=== PATIENT | female | born 1950 | race African-American/Black ===

== ENCOUNTER → 2020-02-18 09:28 | Outpatient (CLI) | payer MEDICARE, SELFPAY ==
[2020-02-18 08:45] VITALS: BMI 31.9
[2020-02-18 12:30] LABS: Absolute Neutrophil Count 1.8 X10^3/uL (2.0-7.7); Basophil# 0.03 X10^3/uL; Basophil% 0.7 % (0-1); Eosinophil# 0.14 X10^3/uL; Hematocrit 40.9 % (37-47); Hemoglobin 12.4 g/dL (12.0-15.0); Lymphocyte % 47.8 % (19-41); Mean Corp Hgb Conc 30.3 g/dL (32-36); Mean Corpuscular Hgb 29.4 pg (27.0-32.0); Mean Corpuscular Volume 96.9 fL (81-99); Mean Platelet Vol. 9.2 fl (6.2-12.0); Monocyte# 0.41 X10^3/uL; Monocyte% 8.9 % (0-10); NRBC Flagged by Analyzer 0 % (0-5); Neutrophil # 1.81 X10^3/uL (2.7-7.7); Neutrophil % 39.4 % (47-70); Platelet Count 273 K/mm3 (150-450); RBC Distribution Width SD 49.8 fl (35.1-43.9); Red Blood Count 4.22 M/mm3 (4.2-5.4); White Blood Count 4.6 K/mm3 (4.4-11.0)
[2020-02-18 13:27] LABS: AST(SGOT) 14 U/L (15-37); Alanine Aminotransfer ALT/SGPT 22 U/L (13-56); Albumin, Serum 3.6 g/dL (3.2-5.0); Alkaline Phosphatase 49 U/L (45-117); Anion Gap 6 (5-15); BUN 18 mg/dL (7-18); BUN/Creat Ratio 21.5 RATIO (10-20); Chloride 107 mmol/L (98-107); Cholesterol 190 mg/dL (200); Creatinine, Serum 0.84 mg/dL (0.55-1.02); EST Glomerular Filtration Rate 72 mL/min (>60); Est Glom Filt Rate - Afr Amer 87 mL/min (>60); Globulin 3.5 g/dL (2.2-4.2); Glucose 147 mg/dL (74-106); High Density Lipoprotein 68 mg/dL; Potassium 4.1 mmol/L (3.5-5.1); Protein, Total 7.1 g/dL (6.4-8.2); Sodium Level 141 mmol/L (136-145); Triglycerides 77 mg/dL; Very Low Density Lipoprotein 15 mg/dL (5-40)
[2020-02-18 15:47] LABS: Hemoglobin A1c 6.1 % (3.8-5.6)
== END ==
PROVIDERS: PCP Internal Medicine; Referring Provider Internal Medicine; Visit Provider Internal Medicine
DX: I10 Essential (primary) hypertension (principal); J98.4 Other disorders of lung; E78.1 Pure hyperglyceridemia; R73.9 Hyperglycemia, unspecified
CPT/HCPCS: 36415; 80053; 80061; 83036; 85025

== ENCOUNTER 2020-04-14 18:39 | Emergency (ER) | payer MEDICARE, SELFPAY ==
[2020-03-29 14:16] VITALS: BMI 33.8
[2020-04-14 18:40] VITALS: BP 172/102; PULSE 82; RESP 24; TEMP 36.4; O2SAT 95; BMI 33.0
--- NOTE | 2020-04-14 19:17 | EKG12_ITS ---
Test Reason : DYSRHYTHMIA Blood Pressure : / mmHG Vent. Rate : 074 BPM Atrial Rate : 074 BPM P-R Int : 210 ms QRS Dur : 086 ms QT Int : 414 ms P-R-T Axes : 066 037 066 degrees QTc Int : 459 ms Sinus rhythm with 1st degree A-V block T wave abnormality, consider anterolateral ischemia Abnormal ECG Confirmed by KALLIE BURGESS MD ([id number]), scientific editor FELISHA RUDOLPH ([id number]) on 04/18/2020 9:29:23 AM Referred By: Confirmed By:KALLIE BURGESS MD
--- NOTE | 2020-04-14 19:30 | ED.VIS.GEN ---
History of Present Illness Chief Complaint: General Illness Informant: Patient Onset: Yesterday Context: Sudden Onset Timing: Continuous Quality: Respiratory symptoms, chest discomfort, shortness of breath, diarrhea Location: Respiratory and GI Current Severity: Mild Maximum Severity: Moderate Worsened by: Dyspnea with exertion and nothing regarding diarrhea Relieved by: Nothing Associated Symptoms: Chronic loss of taste and smell Narrative: Patient is 69-year-old woman who has history of hematologic problem that causes her to have lung problems. She does have history of COPD . She presents with diarrhea, shortness of breath, productive cough and wheezing that started over the past 24 hours. She states she has not had sense of taste or smell for a long time. She denies fever or chills. She denies exposure to anyone with COVID to her knowledge. She does have history of thrombus in the past. She denies ocular, visual or auditory symptoms. She denies change in voice or difficulty swallowing. She denies leg pain, swelling discoloration. She denies vomiting. She denies dysuria, frequency, urgency or hematuria. 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 Denies: Chills, Fever, Subjective, Sweats, Weight loss Eyes: Denies: Visual changes - bilaterally, Blurred Vision - bilaterally ENT: Denies: Rhinorrhea, Sore throat Cardiovascular: Denies: Chest pain, Palpitations Respiratory: Reports: Dyspnea, Cough, Sputum, Dyspnea on exertion. Denies: Orthopnea, Paroxysmal nocturnal dyspnea Gastrointestinal: Reports: Nausea, Diarrhea. Denies: Abdominal pain, Vomiting, Constipation, Melena, Hematochezia, -, - Genitourinary: Denies: Dysuria, Hematuria, Frequency Musculoskeletal: Denies: Myalgias, Arthralgias, Neck pain, Back pain, Swelling, Extremity Pain, -, - Skin: Denies: Rash, Wounds Neurological: Reports: Headache. Denies: Weakness, Parasthesia, Numbness, -, - Endocrine: Denies: Polyuria, Polydipsia Hematologic: Denies: Easy bruising, Easy bleeding Physical Exam Vital Signs/Narrative: Vital Signs Temp Pulse Resp BP Pulse Ox 04/14/20 18:40 97.6 F L 82 24 H 172/102 H 95 Inital Vital Signs reviewed: Yes General: Well nourished, Well developed, Acute Distress Head: Normocephalic, Atraumatic Eyes: Perrl, EOMI. Negative for: Pale conjunctiva, Scleral icterus ENT: Moist mucous membranes, TM's clear, Nasal congestion Cardiovascular: Regular rate, Regular rhythm, No murmurs, Normal S1, Normal S2 Respiratory: Chest nontender, Wheezing, Diminished, Decreased Air Movement. Negative for: No distress, CTA bilaterally Abdomen: Soft, Nontender, Nondistended, Normal bowel sounds Rectal: Deferred Back: Nontender, Normal Inspection Extremities: Nontender, No edema, - - There is no asymmetry, swelling, discoloration, leg vein distention, palpable cords or tenderness along the distribution of the deep venous system. Skin: Normal color, No rash Neurological: Alert, Oriented x3, Cranial nerves II-XII grossly intact, Normal Strength, Normal Sensation Psychological: Normal affect, Normal Mood Diagnostic/Tx/Re-eval Impressions Chest X-Ray 04/14/20 19:57 IMPRESSION: 1. Possible acute viral pneumonia. Electronically Signed: Ming Nielsen, at 20:14 EDT Tel , Service support , 04/14/20 19:57 Chest 1 View (Portable) [RAD] Stat Laboratory Results 04/14/20 04/14/20 04/14/20 19:35 19:35 19:35 WBC 4.6 RBC 4.35 Hgb 12.6 Hct 41.1 MCV 94.5 MCH 29.0 MCHC 30.7 L RDW Std Deviation 48.7 H RDW Coeff of Doe 14.1 Plt Count 281 MPV 9.0 Immature Gran % (Auto) 0.200 Neut % (Auto) 33.5 L Lymph % (Auto) 52.1 H Dorado % (Auto) 9.4 Eos % (Auto) 4.1 Baso % (Auto) 0.7 Absolute Neuts (auto) 1.5 L Absolute Lymphs (auto) 2.39 Nucleated RBC % 0 D-Dimer Quant (PE/DVT) Sodium 141 Potassium 4.2 Chloride 109 H Carbon Dioxide 29.0 Anion Gap 3 L BUN 16 Creatinine 0.86 Estim Creat Clear Calc 57.80 Est GFR (MDRD) Af Amer 84 Est GFR (MDRD) Non-Af 69 BUN/Creatinine Ratio 18.6 Glucose 127 H Lactic Acid 1.6 Calcium 8.9 Total Bilirubin 0.50 AST 16 ALT 22 Alkaline Phosphatase 53 Troponin I < 0.015 Total Protein 7.2 Albumin 3.7 Globulin 3.5 Albumin/Globulin Ratio 1.1 04/14/20 19:35 WBC RBC Hgb Hct MCV MCH MCHC RDW Std Deviation RDW Coeff of Doe Plt Count MPV Immature Gran % (Auto) Neut % (Auto) Lymph % (Auto) Dorado % (Auto) Eos % (Auto) Baso % (Auto) Absolute Neuts (auto) Absolute Lymphs (auto) Nucleated RBC % D-Dimer Quant (PE/DVT) < 0.27 L Sodium Potassium Chloride Carbon Dioxide Anion Gap BUN Creatinine Estim Creat Clear Calc Est GFR (MDRD) Af Amer Est GFR (MDRD) Non-Af BUN/Creatinine Ratio Glucose Lactic Acid Calcium Total Bilirubin AST ALT Alkaline Phosphatase Troponin I Total Protein Albumin Globulin Albumin/Globulin Ratio X-ray was reviewed by me and agree there is bilateral interstitial changes. Presumption patient has COVID. Even if her cover test returns normal suspect that she has COVID. Patient was informed the test does have a 20 to 30% false negativity rate. She understood what that meant. She was discharged with prescription for prednisone. She states she has multiple inhalers at home. She also was placed on doxycycline in the event that this is an atypical pneumonia. Patient's pulse ox is 97% on room air. She is not tachycardic. - Medical Decision Making History of neoplastic disease, prior DVT patient is not PERC negative and will obtain d-dimer. Because she describes the chest discomfort as pressure troponin was obtained as well as EKG. Since she is wheezing will treat with DuoNeb and albuterol. Chest x-ray was obtained to assess for pneumonia. ED Disposition - Plan for ED Patient: Disposition: Home or Assisted Living Diagnosis: Pneumonia due to COVID-19 virus, Acute bronchospasm due to viral infection Instructions: ED Viral Syndrome Prescriptions: Prednisone [Deltasone] 40 mg PO DAILY #10 tab Transmission Status: Pending to [id number] Doxycycline 100 mg PO BID #14 cap Transmission Status: Pending to [id number] Referrals: Fco Bell MD [Primary Care Provider] - 1 Week if not improving
[2020-04-14 19:38] VITALS: BP 169/93; PULSE 74; RESP 20; TEMP 36.4; O2SAT 97
[2020-04-14 19:45] VITALS: PULSE 75; RESP 18; RESP 24; O2SAT 95
[2020-04-14] MEDS: Albuterol 2.5 MG/3 ML VIAL.NEB. INHALATION ×3 (19:45)
[2020-04-14] MEDS: Ipratropium/Albuterol Sulfate 3 ML AMPUL.NEB INHALATION (19:45)
[2020-04-14 19:53] LABS: Absolute Lymphocyte Count 2.39 X10^3/uL (0.83-4.51); Absolute Neutrophil Count 1.5 X10^3/uL (2.0-7.7); Basophil# 0.03 X10^3/uL; Basophil% 0.7 % (0-1); Eosinophil# 0.19 X10^3/uL; Eosinophils% 4.1 % (0-5); Hematocrit 41.1 % (37-47); Hemoglobin 12.6 g/dL (12.0-15.0); Lymphocyte # 2.39 X10^3/ul (4.0); Lymphocyte % 52.1 % (19-41); Mean Corp Hgb Conc 30.7 g/dL (32-36); Mean Corpuscular Volume 94.5 fL (81-99); Monocyte# 0.43 X10^3/uL; Monocyte% 9.4 % (0-10); NRBC Flagged by Analyzer 0 % (0-5); Neutrophil # 1.54 X10^3/uL (2.7-7.7); Neutrophil % 33.5 % (47-70); Platelet Count 281 K/mm3 (150-450); RBC Distribution Width CV 14.1 % (11.6-14.6); RBC Distribution Width SD 48.7 fl (35.1-43.9); Red Blood Count 4.35 M/mm3 (4.2-5.4); White Blood Count 4.6 K/mm3 (4.4-11.0)
--- NOTE | 2020-04-14 19:57 | RAD_ITS ---
STUDY: X-RAY CHEST REASON FOR EXAM: Female, 69 years old. COUGH, HEADACHE, AND DIARRHEA TECHNIQUE: Frontal view of the chest COMPARISON: None. FINDINGS: Interstitial markings are mildly irregular and increased in visibility bilaterally in the mid to lower lung zones. There is no pneumothorax, pleural effusions, pulmonary edema or cardiomegaly. There is no gas under the diaphragms and osseous structures are intact. RAD/Chest 1 View (Portable) IMPRESSION: 1. Possible acute viral pneumonia. Electronically Signed: Ming Nielsen, at 20:14 EDT Tel , Service support ,
[2020-04-14 20:09] LABS: ALB/GLOB Ratio 1.1 RATIO (0.9-2.4); AST(SGOT) 16 U/L (15-37); Alanine Aminotransfer ALT/SGPT 22 U/L (13-56); Albumin, Serum 3.7 g/dL (3.2-5.0); Alkaline Phosphatase 53 U/L (45-117); Anion Gap 3 (5-15); BUN 16 mg/dL (7-18); BUN/Creat Ratio 18.6 RATIO (10-20); Calcium,Total 8.9 mg/dL (8.5-10.1); Chloride 109 mmol/L (98-107); Creatinine, Serum 0.86 mg/dL (0.55-1.02); EST Glomerular Filtration Rate 69 mL/min (>60); Est Glom Filt Rate - Afr Amer 84 mL/min (>60); Globulin 3.5 g/dL (2.2-4.2); Glucose 127 mg/dL (74-106); Potassium 4.2 mmol/L (3.5-5.1); Protein, Total 7.2 g/dL (6.4-8.2); Sodium Level 141 mmol/L (136-145)
[2020-04-14 20:15] LABS: D-Dimer Quantitative (DVT/PE) < 0.27 FEU/ug/m (0.27-0.49)
[2020-04-14 20:30] LABS: Lactic Acid 1.6 mmol/L (0.4-1.9)
--- NOTE | 2020-04-14 20:43 | CPS ---
x3 Albuterol given to pt. in ED as well
[2020-04-14 20:48] VITALS: O2SAT 97
[2020-04-14 21:17] VITALS: BP 150/73; PULSE 71; RESP 15; O2SAT 96
== END 2020-04-14 21:19 | disposition home or self-care (01) ==
PROVIDERS: Emergency Provider Emergency Medicine; PCP Internal Medicine
DX: U07.1 COVID-19 (principal); J12.89 Other viral pneumonia; J44.0 Chronic obstructive pulmonary disease with (acute) lower respiratory infection; D3A.090 Benign carcinoid tumor of the bronchus and lung; I10 Essential (primary) hypertension; E78.1 Pure hyperglyceridemia; Z79.899 Other long term (current) drug therapy
CPT/HCPCS: 71045; 80053; 83605; 84484; 85025; 85379; 87635; 93005; 94640; 94799; 99251; 99284; A4216; G0463; U0003

== ENCOUNTER → 2020-05-29 15:46 | Outpatient (CLI) | payer MEDICARE, SELFPAY ==
--- NOTE | 2020-05-29 15:46 | CT_ITS ---
STUDY: CT CHEST WITH CONTRAST REASON FOR EXAM: Female, 69 years old. Right upper lobe wedge resection for follow-up. RADIATION DOSAGE (If Supplied By Facility): CTDIvol = ( 12.73 ) mGy, DLP = ( 597.22 ) mGycm TECHNIQUE: Transaxial imaging was performed following intravenous administration of . Individualized dose optimization techniques were used for this CT. COMPARISON: Chest x-ray April 14, 2020. FINDINGS: Scattered noncalcified nodules bilaterally largest in the right lung measuring 4-5 mm. 0.7 x 0.6 cm noncalcified nodule medial aspect of the right lower lobe axial image 99 series 2. Noncalcified nodule measuring 0.8 to 0.6 cm medial aspect of the lingular segment axial image 53 series 2. 0.9 x 0.9 cm noncalcified nodule medial aspect left lower lobe axial image 82 series 2.Lobulated nodule left lower lobe axial image 69 series 2 measuring 1.2 x 0.5 cm. Scattered small pulmonary cysts left lung. No pleural effusions. No focal areas of consolidation. No pneumothorax. Normal heart and pericardium. Normal mediastinum. Normal hilar regions. Normal enhanced pulmonary arteries. Normal aorta arch and descending thoracic aorta. Normal osseous structures. There is no demonstrated abnormality of the visualized upper abdomen. CT/Chest WITH Contrast IMPRESSION: Multiple noncalcified nodules bilaterally. Recommend comparison to prior studies if available to assess stability. Otherwise recommend follow-up CT in 3-6 months with consideration for PET/CT scan . Electronically Signed: Phu Roman MD at 7:17 EDT , Service support ,
== END ==
LOC: CT 15:46
PROVIDERS: PCP Internal Medicine; Referring Provider Internal Medicine Hematology & Oncology; Visit Provider Internal Medicine Hematology & Oncology
DX: D3A.090 Benign carcinoid tumor of the bronchus and lung (principal); J98.4 Other disorders of lung; J45.909 Unspecified asthma, uncomplicated
CPT/HCPCS: 71260; Q9967

== ENCOUNTER → 2020-06-21 11:54 | Outpatient (CLI) | payer MEDICARE, SELFPAY ==
[2020-06-21 15:44] LABS: T4 Free Direct 0.94 ng/dL (0.76-1.46); Thyroid Stim Hormone (TSH) 1.77 uIU/mL (0.358-3.74)
== END ==
PROVIDERS: PCP Internal Medicine; Referring Provider Internal Medicine; Visit Provider Internal Medicine
DX: F32.9 Major depressive disorder, single episode, unspecified (principal); F41.9 Anxiety disorder, unspecified
CPT/HCPCS: 36415; 84439; 84443

== ENCOUNTER → 2020-07-20 09:54 | Outpatient (CLI) | payer MEDICARE, SELFPAY ==
[2020-06-30 15:10] VITALS: BMI 33.7
[2020-07-19 15:25] VITALS: BMI 33.7
--- NOTE | 2020-07-21 11:28 | PFT ---
INTRODUCTION: The patient is a 69-year-old -[place] female that presents for pulmonary function studies secondary to a diagnosis of other disorder of lung. Respiratory therapy reports good patient effort. Bronchodilators were used during testing. INTERPRETATION: Forced expiration spirometry demonstrates the presence of a severe large airways obstructive ventilatory defect. There was no significant response to aerosolized bronchodilators. Spirograms are of fair quality and do not plateau indicating slow emptying of the lungs. Body plethysmography was performed and reveals a decreased TLC to 3.74 L, 74% of predicted, indicative of a mild restrictive ventilatory impairment. Diffusing capacity by single breath CO is severely reduced at 31% of predicted. IMPRESSION: Irreversible severe mixed ventilatory defect with symmetric reduction in diffusing capacity.
== END ==
PROVIDERS: PCP Internal Medicine; Referring Provider Internal Medicine Critical Care Medicine; Visit Provider Internal Medicine Critical Care Medicine
DX: J98.4 Other disorders of lung (principal)
CPT/HCPCS: 94060; 94726; 94729

== ENCOUNTER → 2020-07-25 11:18 | Outpatient (CLI) | payer MEDICARE, SELFPAY ==
[2020-06-30 15:10] VITALS: BMI 33.7
[2020-07-19 15:25] VITALS: BMI 33.7
[2020-07-25 11:15] VITALS: PULSE 80; PULSE 82; PULSE 89; PULSE 94; PULSE 95; PULSE 96; PULSE 99; O2SAT 89; O2SAT 90; O2SAT 91; O2SAT 94; O2SAT 95
--- NOTE | 2020-07-25 16:15 | PCM.PSN.6M ---
PSN 6 Minute Walk Test - 6 Minute Walk Test 6 Minute Walk Test: 6 Minute Walk Test PSN:6-Minute Walk Test Start: 07/25/20 11:35 Freq: Status: Active Protocol: [id number].6MINW Document 07/25/20 11:15 (Rec: 07/25/20 11:37 [id number]) 6 Minute Walk Test Date Performed 07/25/20 Time Performed 11:15 Height 5 ft 6 in Weight: 94.347 kg Weight in Pounds 208.[address]: Leif Foster FIO2 (% Oxygen) 21 Assistive device used: None Pre-test Oxygen Delivery Method Room Air Pulse Ox (%) 94 Pulse Rate (60-100 beats/min) 80 Dyspnea Shante Scale (0-10) 0 Exertion Shante Scale (6-20) 6 1st minute Oxygen Delivery Method Room Air Pulse Ox (%) 91 Pulse Rate (60-100 beats/min) 94 2nd minute Oxygen Delivery Method Room Air Pulse Ox (%) 90 Pulse Rate (60-100 beats/min) 95 3rd minute Oxygen Delivery Method Room Air Pulse Ox (%) 90 Pulse Rate (60-100 beats/min) 95 4th minute Oxygen Delivery Method Room Air Pulse Ox (%) 90 Pulse Rate (60-100 beats/min) 89 5th minute Oxygen Delivery Method Room Air Pulse Ox (%) 89 Pulse Rate (60-100 beats/min) 96 6th minute Oxygen Delivery Method Room Air Pulse Ox (%) 90 Pulse Rate (60-100 beats/min) 99 Post-test Oxygen Delivery Method Room Air Pulse Ox (%) 95 Pulse Rate (60-100 beats/min) 82 Dyspnea Shante Scale (0-10) 3 Exertion Shante Scale (6-20) 12 Full Laps Walked 15 Partial Lap, Number of Tiles Walked 0 Total Distance Walked (ft) 885 - Interpretation Interpretation: The patient was able to ambulate 885 feet over the course of 6 minutes on room air with no assistive devices or breaks. The patient did desaturate as low as 89% and did not have any significant tachycardia. Patient's peak heart rate was 99 bpm. These findings are consistent with a respiratory limitation to exercise tolerance. - Recommendations Recommendations: The patient requires no supplemental oxygen at this time. However, patient will need to be followed closely given the level of desaturation
== END ==
PROVIDERS: PCP Internal Medicine; Referring Provider Internal Medicine Critical Care Medicine; Visit Provider Internal Medicine Critical Care Medicine
DX: J98.4 Other disorders of lung (principal)
CPT/HCPCS: 94618

== ENCOUNTER → 2020-08-01 | Outpatient (CLI) | payer MEDICARE, SELFPAY ==
[2020-07-19 15:25] VITALS: BMI 33.7
== END | disposition home or self-care (01) ==
LOC: LABSPEC 17:30
PROVIDERS: PCP Internal Medicine; Referring Provider Internal Medicine; Visit Provider Internal Medicine
DX: Z20.828 Contact with and (suspected) exposure to other viral communicable diseases (principal)
CPT/HCPCS: 87635; C9803; U0003

== ENCOUNTER → 2020-08-30 10:04 | Outpatient (CLI) | payer MEDICARE, SELFPAY ==
[2020-08-29 08:04] VITALS: BMI 32.9
--- NOTE | 2020-08-30 10:07 | RAD_ITS ---
STUDY: X-RAY - LEFT KNEE REASON FOR EXAM: Female, 69 years old. PAIN, CRACK WHILE WALKING X A FEW MONTHS TECHNIQUE: 4 view(s) of the knee. COMPARISON: None. FINDINGS: Normal visualized distal femur. Normal visualized proximal tibia and fibula. Normal proximal tibiofibular articulation. Mild degenerative squaring of the medial compartment. Normal lateral femorotibial compartment. Normal patellofemoral articulation. There is no demonstrated joint effusion. Anterior venous phlebolith. RAD/Knee 4 or More Views IMPRESSION: No acute findings. Negative for fracture, dislocation or joint effusion. Mild degenerative squaring of the medial compartment without other arthritic or degenerative changes. Electronically Signed: Marisa Swanson MD at 17:05 EST , Service support ,
--- NOTE | 2020-08-30 10:07 | RAD_ITS ---
STUDY: X-RAY CHEST REASON FOR EXAM: Female, 69 years old. COUGH AND CHEST PAIN WITH MOVEMENT X 2 MONTHS TECHNIQUE: 2 views COMPARISON: Prior portable chest of 04/14/[address] exam of 05/29/2020 FINDINGS: Subtle nodular densities remain present bilaterally which do not appear to be substantially changed in distribution or size from prior exam. She appears to be status post a prior resection of a portion of the right upper lobe. Negative for a new major areas of consolidation or focal atelectasis. Normal size heart. Normal mediastinum and candace. Normal visualized pulmonary arteries. Mild elongation of the thoracic aorta. Normal visualized thoracic spine. Normal visualized ribs, clavicles, and shoulders. Status post cholecystectomy. RAD/Chest PA and Lateral IMPRESSION: Stable appearance of the chest with small diffuse nodular opacities. Negative for new consolidation, focal atelectasis, other infiltrates or pleural effusion. Electronically Signed: Marisa Swanson MD at 17:10 EST , Service support ,
== END ==
LOC: RAD 10:06
PROVIDERS: PCP Internal Medicine; Referring Provider Internal Medicine; Visit Provider Internal Medicine
DX: M25.562 Pain in left knee (principal); J42 Unspecified chronic bronchitis; J98.4 Other disorders of lung
CPT/HCPCS: 71046; 73564

== ENCOUNTER → 2020-11-17 12:59 | Outpatient (CLI) | payer MEDICARE, MEDICAID, SELFPAY ==
[2020-11-09 13:43] VITALS: BMI 33.1
--- NOTE | 2020-11-17 13:03 | CT_ITS ---
STUDY: CT CHEST WITHOUT CONTRAST REASON FOR EXAM: Female, 70 years old. Follow up nodules. RADIATION DOSAGE (If Supplied By Facility): CTDIvol = ( 12.97 ) mGy, DLP = ( 422.38 ) mGycm TECHNIQUE: Transaxial imaging was performed without the administration of intravenous contrast material. Multiplanar coronal and sagittal images were reformatted. Individualized dose optimization techniques were used for this CT. COMPARISON: Comparison is made with prior study dated 05/29/2020. FINDINGS: Stable small benign appearing bilateral axillary lymph nodes. Stable bilateral multiple noncalcified nodules. Correlation with a PET scan is recommended. There is no demonstrated pleural abnormality. Normal heart and pericardium. There are multiple small lymph nodes within the mediastinum, which are normal in size and morphology most compatible with reactive lymph hyperplasia. Normal hilar regions. Normal unenhanced pulmonary arteries. Normal aorta arch and descending thoracic aorta. There are degenerative changes of the thoracic spine. There is no demonstrated abnormality of the visualized upper abdomen. CT/Chest without Contrast IMPRESSION: Stable appearance of the multiple bilateral noncalcified pulmonary nodules. Correlation with a PET scan is recommended. Electronically Signed: Michael Fleming MD at 13:41 EST , Service support ,
== END ==
PROVIDERS: PCP Internal Medicine; Referring Provider Internal Medicine Critical Care Medicine; Visit Provider Internal Medicine Critical Care Medicine
DX: D3A.090 Benign carcinoid tumor of the bronchus and lung (principal)
CPT/HCPCS: 71250

== ENCOUNTER 2020-11-24 10:03 | Outpatient (RCR) | payer MEDICARE, MEDICAID, SELFPAY ==
[2020-11-09 13:43] VITALS: BMI 33.1
[2020-11-24] MEDS: COVID-19 VACC, MRNA(PFIZER)/PF 30 MCG/0.3 ML SYRINGE IM (14:01)
[2020-12-15] MEDS: COVID-19 VACC, MRNA(PFIZER)/PF 30 MCG/0.3 ML SYRINGE IM (13:33)
== END 2021-02-20 23:59 ==
LOC: IMMUN 10:03
PROVIDERS: PCP Internal Medicine; Visit Provider Family Medicine
DX: Z23 Encounter for immunization (principal)
CPT/HCPCS: 0001A; 0002A; 91300

== ENCOUNTER → 2020-11-24 20:26 | Outpatient (CLI) | payer MEDICARE, MEDICAID, SELFPAY ==
[2020-11-09 13:43] VITALS: BMI 33.1
== END ==
PROVIDERS: PCP Internal Medicine; Visit Provider Internal Medicine Critical Care Medicine
DX: G47.33 Obstructive sleep apnea (adult) (pediatric) (principal)
CPT/HCPCS: 95811

== ENCOUNTER → 2020-11-29 11:22 | Outpatient (CLI) | payer MEDICARE, MEDICAID, SELFPAY ==
[2020-11-28 08:07] VITALS: BMI 32.5
--- NOTE | 2020-11-29 11:25 | EKG12_ITS ---
Test Reason : HTN Blood Pressure : / mmHG Vent. Rate : 081 BPM Atrial Rate : 081 BPM P-R Int : 168 ms QRS Dur : 082 ms QT Int : 376 ms P-R-T Axes : 038 025 064 degrees QTc Int : 436 ms Normal sinus rhythm ST & T wave abnormality, consider anterolateral ischemia Abnormal ECG Confirmed by JENIFER KEANE, KALLIE ([id number]), telegraph editor FELISHA RUDOLPH ([id number]) on 11/30/2020 12:41:26 PM Referred By: Fco Bell Confirmed By:KALLIE BURGESS MD
== END ==
PROVIDERS: PCP Internal Medicine; Referring Provider Internal Medicine; Visit Provider Internal Medicine
DX: I10 Essential (primary) hypertension (principal); R07.89 Other chest pain
CPT/HCPCS: 93005

== ENCOUNTER → 2020-12-04 08:45 | Outpatient (CLI) | payer MEDICARE, SELFPAY ==
[2020-11-28 08:07] VITALS: BMI 32.5
== END ==
PROVIDERS: PCP Internal Medicine; Visit Provider Nurse Practitioner Acute Care
DX: Z45.89 Encounter for adjustment and management of other implanted devices (principal)

== ENCOUNTER → 2020-12-25 14:16 | Outpatient (CLI) | payer MEDICARE, SELFPAY ==
[2020-12-25 15:21] LABS: Absolute Lymphocyte Count 2.18 X10^3/uL (0.83-4.51); Absolute Neutrophil Count 2.6 X10^3/uL (2.0-7.7); Basophil# 0.03 X10^3/uL; Basophil% 0.6 % (0-1); Eosinophil# 0.11 X10^3/uL; Eosinophils% 2.1 % (0-5); Lymphocyte # 2.18 X10^3/ul (4.0); Lymphocyte % 40.9 % (19-41); Mean Corp Hgb Conc 30.2 g/dL (32-36); Mean Corpuscular Hgb 29.5 pg (27.0-32.0); Mean Corpuscular Volume 97.7 fL (81-99); Mean Platelet Vol. 9.4 fl (6.2-12.0); Monocyte# 0.38 X10^3/uL; Monocyte% 7.1 % (0-10); NRBC Flagged by Analyzer 0 % (0-5); Neutrophil # 2.62 X10^3/uL (2.7-7.7); Neutrophil % 49.1 % (47-70); Platelet Count 336 K/mm3 (150-450); RBC Distribution Width CV 13.6 % (11.6-14.6); RBC Distribution Width SD 49.3 fl (35.1-43.9); White Blood Count 5.3 K/mm3 (4.4-11.0)
[2020-12-25 16:05] LABS: AST(SGOT) 13 U/L (15-37); Alanine Aminotransfer ALT/SGPT 19 U/L (13-56); Albumin, Serum 3.7 g/dL (3.2-5.0); Alkaline Phosphatase 59 U/L (45-117); Anion Gap 3 (5-15); BUN 11 mg/dL (7-18); BUN/Creat Ratio 12.9 RATIO (10-20); Calcium,Total 9.2 mg/dL (8.5-10.1); Chloride 103 mmol/L (98-107); Creatinine, Serum 0.86 mg/dL (0.55-1.02); EST Glomerular Filtration Rate 70 mL/min (>60); Est Glom Filt Rate - Afr Amer 84 mL/min (>60); Globulin 3.8 g/dL (2.2-4.2); Glucose 93 mg/dL (74-106); Potassium 3.4 mmol/L (3.5-5.1); Protein, Total 7.5 g/dL (6.4-8.2); Sodium Level 140 mmol/L (136-145); T4 Free Direct 0.87 ng/dL (0.76-1.46); Thyroid Stim Hormone (TSH) 1.46 uIU/mL (0.358-3.74)
== END ==
PROVIDERS: PCP Internal Medicine; Visit Provider Physician Assistant
DX: R19.7 Diarrhea, unspecified (principal)
CPT/HCPCS: 36415; 80053; 83630; 84439; 84443; 85025; 87493; 87506

== ENCOUNTER → 2020-12-27 06:56 | Outpatient (CLI) | payer MEDICARE, SELFPAY ==
[2020-11-28 08:07] VITALS: BMI 32.5
[2020-12-07 16:30] VITALS: BMI 32.8
--- NOTE | 2020-12-27 09:05 | STRESSREP ---
Stress Test Report Date: 12-27-2020 Procedure: Pharmacologic stress nuclear imaging study Indications: Abnormal electrocardiogram; chest pain Consent: Per the patient Procedure: The patient underwent pharmacologic (Regadenoson 0.4mg ) evaluation with a peak heart rate of 74 beats per minute (49%predicted maximal heart rate) and a peak blood pressure of 148/84 mmHg. The baseline ECG demonstrated bradycardia; nonspecific ST/T wave abnormality. The peak pharmacologic ECG demonstrated no obvious ECG changes. There were no cardiac dysrhythmias pretest, during pharmacologic infusion, or recovery. There was no complaint of chest discomfort during pharmacologic infusion or recovery. The examination was discontinued secondary to completion of protocol. Impression: 1. Pharmacologic (Regadenoson) evaluation 2. Peak pharmacologic ECG with no obvious ECG changes. 3. There were no cardiac dysrhythmias pretest, during pharmacologic infusion, or recovery. 4. Nuclear images pending Myocardial perfusion imaging study: Technique: The patient was injected with millicuries of technetium 99m Cardiolite and subsequently rest SPECT Cardiolite nuclear imaging was obtained in the horizontal long, vertical long, and short axis views. The patient underwent pharmacologic (Regadenoson) evaluation with a peak heart rate of 74 beats per minute (49% percent predicted maximal heart rate) and a peak blood pressure of 148/84 mmHg. The patient was injected with millicuries of technetium 99m Cardiolite and subsequently stress SPECT Cardiolite nuclear imaging was obtained in the horizontal long, vertical long, and short axis views. A gated Cardiolite study at peak stress was obtained. Interpretation: Rest and stress SPECT Cardiolite nuclear imaging status post realignment, normalization, and attenuation correction demonstrate relative uniform tracer uptake and myocardial perfusion appearing within normal limits. There is end systolic thickening and brightening. The gated Cardiolite study demonstrates myocardial thickening and inward wall motion. The reported LVEF is 77%. Impression: 1. Rest and stress SPECT Cardiolite nuclear imaging demonstrate relative uniform tracer uptake and myocardial perfusion appearing within normal limits. 2. The gated Cardiolite study reports an LVEF of 77%. This note was generated with [employer] software. It may contain incorrect words, spelling, and punctuation that were not noted in checking the note before signing.
== END ==
LOC: CVS 06:57
PROVIDERS: PCP Internal Medicine; Referring Provider Internal Medicine; Visit Provider Internal Medicine
DX: R07.89 Other chest pain (principal); R94.31 Abnormal electrocardiogram [ECG] [EKG]
CPT/HCPCS: 78452; 93017; A9500; A4216; J2785

== ENCOUNTER → 2021-01-15 15:02 | Outpatient (CLI) | payer MEDICARE, MEDICAID, SELFPAY ==
[2021-01-04 15:34] VITALS: BMI 32.7
--- NOTE | 2021-01-15 15:05 | BI_ITS ---
MAMMOGRAPHY - BILATERAL SCREENING REASON FOR EXAM: Female, 70 years old. Routine annual screening examination. PERTINENT HISTORY: Non-contributory. TECHNIQUE: Digital bilateral breast osman (3D mammographic acquisition) in the CC and MLO projections. 2-D mediolateral oblique (MLO) and craniocaudad (CC) views of both breasts were obtained. CAD: Full Field Digital Mammography with Computer Added Detection was performed. COMPARISON: Comparison is made with prior outside examination dated 05/08/2017. FINDINGS: Breast Composition: There are scattered areas of fibroglandular density. There are no dominant masses or suspicious calcifications. No other significant abnormalities are identified. There has been no significant change since the prior study. BI/SCRN MAMM (CAD)W/OSMAN BILAT IMPRESSION: Stable bilateral screening mammogram. Yearly follow-up mammogram recommended. (A) ASSESSMENT CATEGORY: BIRADS Category 1: Negative. A letter regarding these results will be sent to the patient by the facility within 30 days. Approximately 10% of breast cancers are not detected by mammography. A normal mammogram should not delay biopsy of a clinically suspicious abnormality. [id number] Electronically Signed: Michael Fleming MD at 8:54 EDT , Service support ,
== END ==
PROVIDERS: PCP Internal Medicine; Referring Provider Internal Medicine Hematology & Oncology; Visit Provider Internal Medicine Hematology & Oncology
DX: Z12.31 Encounter for screening mammogram for malignant neoplasm of breast (principal)
CPT/HCPCS: 77063; 77067

== ENCOUNTER 2021-10-10 08:29 | Outpatient (CLI) | payer MEDICARE, MEDICAID, SELFPAY ==
[2021-10-10 12:21] LABS: Cholesterol 240 mg/dL (200); High Density Lipoprotein 72 mg/dL; Triglycerides 100 mg/dL; Very Low Density Lipoprotein 20 mg/dL (5-40)
== END 2021-10-10 23:59 | disposition short-term general hospital (02) ==
PROVIDERS: PCP Internal Medicine; Referring Provider Internal Medicine; Visit Provider Internal Medicine
DX: E78.1 Pure hyperglyceridemia (principal)
CPT/HCPCS: 36415; 80061

== ENCOUNTER 2021-11-12 07:59 | Outpatient (CLI) | payer MEDICARE, MEDICAID, SELFPAY ==
--- NOTE | 2021-11-12 08:00 | CT_ITS ---
STUDY: CT CHEST WITH CONTRAST REASON FOR EXAM: Female, 71 years old. Assess response to treatment. History of lung carcinoma. RADIATION DOSAGE (If Supplied By Facility): CTDIvol = ( 15.26 ) mGy, DLP = ( 498.14 ) mGycm TECHNIQUE: Transaxial imaging was performed following intravenous administration of IV 100mL Isovue-300. Multiplanar coronal and sagittal images were reformatted. Individualized dose optimization techniques were used for this CT. COMPARISON: Comparison is made with prior study 11/17/2020. FINDINGS: Once again, multiple bilateral noncalcified nodules are seen. Since prior study. The majority of the nodules have increased slightly in size as compared to prior study. Stable linear scarring at the lung bases. There is no demonstrated pleural abnormality. Normal heart and pericardium. There are multiple small lymph nodes within the mediastinum, which are normal in size and morphology most compatible with reactive lymph hyperplasia. Normal hilar regions. Normal enhanced pulmonary arteries. Normal aorta arch and descending thoracic aorta. There are multi-level degenerative changes of the thoracic spine. There is no demonstrated abnormality of the visualized upper abdomen. CT/Chest WITH Contrast IMPRESSION: Since prior study, there has been a mild degree of increase in size of the majority of the pulmonary nodules. Electronically Signed: Michael Fleming MD at 9:06 [facility] ,
== END 2021-11-12 23:59 | disposition home or self-care (01) ==
LOC: CT 07:59
PROVIDERS: PCP Internal Medicine; Referring Provider Nurse Practitioner Family; Visit Provider Nurse Practitioner Family
DX: J98.4 Other disorders of lung (principal)
CPT/HCPCS: 71260; Q9967

== ENCOUNTER → 2022-01-17 | Outpatient (CLI) | payer MEDICARE, SELFPAY ==
--- NOTE | 2022-01-17 13:48 | BI_ITS ---
MAMMOGRAPHY - BILATERAL SCREENING REASON FOR EXAM: Female, 71 years old. Routine annual screening examination. PERTINENT HISTORY: Non-contributory. TECHNIQUE: Digital bilateral breast osman (3D mammographic acquisition) in the CC and MLO projections. 2-D mediolateral oblique (MLO) and craniocaudad (CC) views of both breasts were obtained. CAD: Full Field Digital Mammography with Computer Added Detection was performed. COMPARISON: Comparison is made with prior examination dated 01/15/2021 FINDINGS: Breast Composition: There are scattered areas of fibroglandular density. There are no dominant masses or suspicious calcifications. Stable benign-appearing bilateral axillary lymph nodes. No other significant abnormalities are identified. There has been no significant change since the prior study. BI/SCRN MAMM (CAD)W/OSMAN BILAT IMPRESSION: Stable bilateral screening mammogram. Yearly follow-up mammogram recommended. (A) ASSESSMENT CATEGORY: BIRADS Category 2: Benign. A letter regarding these results will be sent to the patient by the facility within 30 days. Approximately 10% of breast cancers are not detected by mammography. A normal mammogram should not delay biopsy of a clinically suspicious abnormality. [id number] Electronically Signed: Michael Fleming MD at 14:27 EDT ,
== END | disposition home or self-care (01) ==
LOC: OPBI 13:47
PROVIDERS: PCP Internal Medicine; Visit Provider Internal Medicine Hematology & Oncology
DX: Z12.31 Encounter for screening mammogram for malignant neoplasm of breast (principal)
CPT/HCPCS: 77063; 77067

== ENCOUNTER 2022-06-16 11:47 | Emergency (ER) | payer MEDICARE, SELFPAY ==
[2022-06-16 11:48] VITALS: BP 173/92; PULSE 103; RESP 18; TEMP 36.7; O2SAT 95; BMI 34.4
--- NOTE | 2022-06-16 11:59 | RAD_ITS ---
STUDY: X-RAY CHEST REASON FOR EXAM: Female, 71 years old. Chest pain TECHNIQUE: Single AP portable view of the chest. COMPARISON: August 30, 2020 FINDINGS: There are mild left perihilar increased opacities. There is no demonstrated pleural abnormality. Normal size heart. Normal mediastinum and candace. Normal visualized pulmonary arteries. Normal visualized aortic arch and descending thoracic aorta. Normal visualized thoracic spine. Normal visualized ribs, clavicles, and shoulders. There is no demonstrated abnormality of the visualized soft tissue structures of the upper abdomen. RAD/Chest 1 View (Portable) IMPRESSION: Left perihilar infiltrate. Electronically Signed: Tyler Skelton MD at 13:08 EDT ,
--- NOTE | 2022-06-16 12:08 | EX.ED.DYSGE1 ---
HPI <GONZÁLEZ Marte - Last Filed: 06/16/22 13:45> History of Present Illness Chief Complaint: Chest Pain Narrative Narrative: Left-sided chest pain, left-sided back pain. 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 Patient states that this began yesterday during the day, she noticed that it was sharp and stabbing and also has increased pain with any movement or deep inspiration. Patient did return from [place] on 09 June, patient states she denies any leg swelling, shortness of breath. Patient states the pain is getting more pronounced, more sharp, and she is here for evaluation patient is also concerned because the biggest carcinoid tumor is on the left side. She denies any fevers or chills peer denies any infectious symptoms such as cough. [facility] <GONZÁLEZ Marte - Last Filed: 06/16/22 13:45> [facility] Medical History Change in skin mole Chest wall pain Chronic bronchitis Chronic diarrhea Diffuse idiopathic pulmonary neuroendocrine cell hyperplasia Diverticulosis GERD (gastroesophageal reflux disease) GI problem Hypertriglyceridemia Localized swelling of chest wall Seasonal allergies Vitamin deficiency Home Medications blood pressure monitor #1 ea 02/18/20 [Rx Last Taken Unknown] octreotide,microspheres 30 mg intramuscular susp, extended release (Sandostatin LAR Depot) 30 mg IM Q4W 02/18/20 [History Last Taken Unknown] nebulizers #1 ea 08/01/20 [Rx Last Taken Unknown] albuterol sulfate 2.5 mg/3 mL (0.083 %) solution for nebulization 2.5 mg (3 mL) inhalation Q4H PRN shortness of breath or wheezing #90 mL 12/28/20 [Rx Last Taken Unknown] escitalopram oxalate 20 mg tablet 20 mg PO DAILY #90 tabs 12/28/20 [Rx Last Taken Unknown] eluxadoline 75 mg tablet (Viberzi) 75 mg PO BID #60 tabs 02/16/21 [Rx Last Taken Unknown] Disability Placard #1 ea 05/25/21 [Rx Last Taken Unknown] baclofen 10 mg tablet 10 mg PO BID PRN muscle spasm #60 tabs 11/01/21 [Rx Last Taken Unknown] pravastatin 20 mg tablet 20 mg PO QHS #90 tabs 11/05/21 [Rx Last Taken Unknown] propranolol 40 mg tablet 40 mg PO BID #180 tabs 11/05/21 [Rx Last Taken Unknown] hydrocortisone 2.5 % topical cream 1 applic topical BID PRN Rash 12/06/21 [History Last Taken Unknown] albuterol sulfate 90 mcg/actuation aerosol inhaler (Ventolin HFA) 2 puff inhalation Q6H PRN Sob &/Or Wheezing #8.5 grams 01/11/22 [Rx Last Taken Unknown] meloxicam 15 mg tablet 15 mg PO DAILY PRN pain #60 tabs 01/29/22 [Rx Last Taken Unknown] dicyclomine 20 mg tablet 20 mg PO TID #90 tabs 02/12/22 [Rx Last Taken Unknown] pantoprazole 40 mg tablet,delayed release (Protonix) 40 mg PO DAILY #90 tabs 04/17/22 [Rx Last Taken Unknown] budesonide 160 mcg-glycopyr 9 mcg-formot 4.8 mcg/actuation HFA inhaler (Breztri Aerosphere) 2 inh inhalation BID #3 ea 06/10/22 [Rx Last Taken Unknown] mometasone 50 mcg/actuation nasal spray 2 spray intranasal DAILY #17 grams 06/10/22 [Rx Last Taken Unknown] Allergy/AdvReac Type Severity Reaction Status Date / Time hydromorphone [From Dilaudid] Allergy Severe Hallucinati Verified 06/16/22 11:47 ons Family History Brother Diabetes Heart disease Lung cancer Daughter Alcohol abuse Anxiety Father Dementia Mother Enlarged heart Surgical History History of appendectomy History of cholecystectomy History of total hip replacement Hx of hysterectomy Hx of oophorectomy Social History Smoking Status: Never smoker second hand exposure: No alcohol intake: current alcohol intake frequency: a few times a month Alcohol type: wine substance use type: does not use what type of physical activity do you participate in: none nico/mormonism: Quaker seatbelt use: always do you feel safe at home: Yes ROS <GONZÁLEZ Marte - Last Filed: 06/16/22 13:45> ROS ED ROS Narrative Constitutional: Negative for fever, chills, weight loss, weakness Eyes: Negative for vision loss, vision change, double vision ENT: Negative for any sore throat, ear pain, congestion Cardiovascular: Negative for any tightness, palpitations. Positive left-sided chest pain, left shoulder blade pain Respiratory: Negative for any cough, sputum production, hemoptysis, dyspnea, dyspnea on exertion, orthopnea Gastrointestinal: Negative for any abdominal pain, nausea, vomiting, diarrhea, constipation, blood in stool, blood in vomit : Negative for any urinary frequency, dysuria, retention, blood in urine Muscle skeletal: Negative for any muscle joint pain, stiffness, myalgias, arthralgias, neck pain, back pain Neurological: Negative for any headache, syncope, numbness or tingling, dizziness Skin: Negative for any rashes, lumps, itching, abrasions, lacerations Psychiatric: Negative for any depression, anxiety, stress, suicidal ideation, homicidal ideation Hematologic: Negative for any easy bruising, excessive bruising, easy bleeding Allergies: Negative for any eczema, hives, rash EXAM <GONZÁLEZ Marte - Last Filed: 06/16/22 13:45> Physical Exam Narrative Exam Narrative: Vital signs reviewed. Patient appears to be in no respiratory distress. HEET: Head normocephalic atraumatic, TMs clear bilaterally. Posterior pharynx is clear, moist mucous membranes. Nares clear bilaterally. Neck: Supple with no lymphadenopathy or tenderness. No signs of meningismus, negative jolt sign. Cardiac: Regular rate and rhythm no murmurs gallops or rubs, equal peripheral pulses bilaterally. Respiratory: Lungs clear to auscultation bilaterally. Patient does have pain on palpation to left anterior chest as well as left posterior chest. Just underneath the shoulder blade. Abdomen: Soft, nontender, nondistended. No abdominal bruit or pulsatile masses. No hepatosplenomegaly Extremities: No peripheral edema, no signs of gross trauma or deformity. Active full range of motion of all extremities. Neuro: Cranial nerves II through XII intact, no focal neurological deficits. Skin: Clean dry and intact with no rash, purpura, petechiae, vesicles or pustules. Backs/flank: No CVA tenderness, no midline spinal tenderness, no deformity. Psych: Normal mood and affect. No SI, HI or acute psychosis. Const Vital Signs: 06/16/22 11:48 06/16/22 11:56 Temperature 98.0 F Temperature Source Temporal Pulse Rate 103 H Respiratory Rate 18 Respiratory Effort Normal Non-Labored Blood Pressure 173/92 H Blood Pressure Mean 119 Pulse Ox 95 Oxygen Delivery Method Room Air <Dr. Tariq Miller MD - Last Filed: 06/16/22 13:23> Physical Exam Const Vital Signs: 06/16/22 11:48 06/16/22 11:56 Temperature 98.0 F Temperature Source Temporal Pulse Rate 103 H Respiratory Rate 18 Respiratory Effort Normal Non-Labored Blood Pressure 173/92 H Blood Pressure Mean 119 Pulse Ox 95 Oxygen Delivery Method Room Air MDM <GONZÁLEZ Marte - Last Filed: 06/16/22 13:45> MDM Lab Data Labs: Laboratory Results - last 24 hr 06/16/22 06/16/22 06/16/22 12:00 12:00 12:00 WBC 4.5 RBC 4.14 L Hgb 12.4 Hct 39.9 MCV 96.4 MCH 30.0 MCHC 31.1 L RDW Std Deviation 47.3 H RDW Coeff of Doe 13.3 Plt Count 272 MPV 8.7 Immature Gran % (Auto) 0.200 Neut % (Auto) 42.5 L Lymph % (Auto) 46.5 H [place] % (Auto) 7.1 Eos % (Auto) 3.3 Baso % (Auto) 0.4 Absolute Neuts (auto) 1.9 L Absolute Lymphs (auto) 2.10 Nucleated RBC % 0 D-Dimer Quant (PE/DVT) 1.14 H* Sodium 143 Potassium 3.5 Chloride 105 Carbon Dioxide 29.0 Anion Gap 9 BUN 12 Creatinine 0.95 Estim Creat Clear Calc 50.85 Est GFR (MDRD) Af Amer 75 Est GFR (MDRD) Non-Af 62 BUN/Creatinine Ratio 12.6 Glucose 234 H Calcium 9.2 Troponin I High Sens 4 Radiography Diagnostic Testing: Clinical Impression(s) from Imaging Studies Chest X-Ray 06/16/22 11:59 IMPRESSION: Left perihilar infiltrate. Electronically Signed: Tyler Skelton MD at 13:08 EDT , Chest CTA 06/16/22 12:26 IMPRESSION: CTA chest examination, without a demonstrated pulmonary embolism or arterial dissection. Stable bilateral pulmonary nodules. Electronically Signed: Tyler Skelton MD at 13:24 EDT , EKG Sinus rhythm with first-degree AV block: Attestation: I personally reviewed and interpreted this EKG as follows: Interpretation: Sinus Rhythm Comments: Sinus rhythm with first-degree AV block, rate of 94 bpm, NV interval 216 ms, QRS duration 82 ms, there is no acute ST elevation or infarct noted Treatment and Re-Evaluation Narrative: Patient appears well, patient appears nontoxic, vital signs are stable.Patient presents to the emergency department with 2 days of left sided chest pain, left back pain. Patient did receive a full cardiac work-up, patient's troponin was negative, patient's EKG was unremarkable, unchanged. Patient CBC and chemistries were unremarkable. Secondary to the patient's travel, history of cancerous lung nodules, a D-dimer was ordered. This was elevated at 1.14. Patient did receive a chest x-ray we was interpreted by ER attending as negative, however the radiologist did mention a possible infiltrate, patient did receive a CTA of the chest to rule out a blood clot. Patient CT of the chest shows no demonstrated pulmonary embolus, aortic dissection, negative for any infiltrate. At this time, patient negative chest pain work-up, negative work-up for any pulmonary embolus. Patient will be diagnosed with chest pain, uncertain etiology, I do believe this is muscle skeletal in nature. There is no evidence of any PA, ACS, PE. Patient will continue take her pain medicine at home, will follow-up outpatient. Patient is happy with the plan of care and is stable for discharge <Dr. Tariq Miller MD - Last Filed: 06/16/22 13:23> [facility] Narrative Medical decision making narrative: I have personally performed a face to face assessment of the patient and have reviewed the IBRAHIMA Note. I performed a substantive portion of the visit including all aspects of the following. My townsend findings include: History is [71-year-old female with atypical left-sided chest pain. Around her left breast goes into her back. No cardiac history. No history of DVT or PE. She has had recent travel to and from [place]. Denies any leg pain or swelling. No hemoptysis. It does not go to her arm or neck. No associated shortness of breath. No associated new or different exertional chest pain or shortness of breath. I am evaluating this patient with our nurse practitioner.] Exam is [well-appearing 71-year-old. Vital signs stable afebrile. Pulse ox 95% on room air no hypoxia. HEENT exam unremarkable. Lungs are clear. Heart regular rhythm no murmur. Chest wall nontender. No obvious reproducible chest wall pain. No cellulitis or abscess. No axillary lymphadenopathy. Abdomen soft nontender. Back she is some reproducible lower rib cage musculoskeletal pain. Moves all 4 extremities. Calves are nontender without edema. Rest of exam unremarkable.] Medical Decision Making [71-year-old with atypical chest and back pain that may be musculoskeletal. Concern would be could this be a PE. Cardiac work-up and D-dimer will be obtained. D-dimer was elevated so a CTA will be obtained.] Other additions or changes: [None] Lab Data Attestation: I reviewed the patient's lab results. Labs: Laboratory Results - last 24 hr 06/16/22 06/16/22 06/16/22 12:00 12:00 12:00 WBC 4.5 RBC 4.14 L Hgb 12.4 Hct 39.9 MCV 96.4 MCH 30.0 MCHC 31.1 L RDW Std Deviation 47.3 H RDW Coeff of Doe 13.3 Plt Count 272 MPV 8.7 Immature Gran % (Auto) 0.200 Neut % (Auto) 42.5 L Lymph % (Auto) 46.5 H [place] % (Auto) 7.1 Eos % (Auto) 3.3 Baso % (Auto) 0.4 Absolute Neuts (auto) 1.9 L Absolute Lymphs (auto) 2.10 Nucleated RBC % 0 D-Dimer Quant (PE/DVT) 1.14 H* Sodium 143 Potassium 3.5 Chloride 105 Carbon Dioxide 29.0 Anion Gap 9 BUN 12 Creatinine 0.95 Estim Creat Clear Calc 50.85 Est GFR (MDRD) Af Amer 75 Est GFR (MDRD) Non-Af 62 BUN/Creatinine Ratio 12.6 Glucose 234 H Calcium 9.2 Troponin I High Sens 4 Radiography Diagnostic Testing: Clinical Impression(s) from Imaging Studies Chest X-Ray 06/16/22 11:59 IMPRESSION: Left perihilar infiltrate. Electronically Signed: Tyler Skelton MD at 13:08 EDT Reading Location ID and State: [facility] / [place] , Service support , Chest CTA 06/16/22 12:26 IMPRESSION: CTA chest examination, without a demonstrated pulmonary embolism or arterial dissection. Stable bilateral pulmonary nodules. Electronically Signed: Tyler Skelton MD at 13:24 EDT Reading Location ID and State: [facility] / [place] , Service support , Discharge Plan Triage Chief Complaint: Chest Pain ED Midlevel Provider: Darryl Estrada ED Provider: Tariq Miller Dx/Rx/DC Orders Clinical Impression: Chest pain of uncertain etiology, Chest wall muscle strain Instructions: ED Chest Pain, Noncardiac, ED Chest Pain, Uncertain Cause Prescriptions: No Action Sandostatin LAR Depot 30 mg suspension,extended rel recon 30 mg IM Q4W (DME) blood pressure monitor Kit See Rx Instructions .ROUTE .MEDSUPPLY Qty: 1 0RF Rx Instructions: Check blood pressure daily for hypertension I10 (DME) nebulizers Misc See Rx Instructions .ROUTE .MEDSUPPLY Qty: 1 0RF Rx Instructions: As directed (DME) Disability Placard See Rx Instructions .ROUTE .MEDSUPPLY Qty: 1 0RF Rx Instructions: Expires in 5 years Viberzi 75 mg tablet 75 mg PO BID Qty: 60 1RF Rx Instructions: must administer with a meal/food albuterol sulfate [Ventolin HFA] 90 mcg/actuation HFA aerosol inhaler 2 puff INHALATION Q6H PRN (Reason: Sob &/Or Wheezing) Qty: 8.5 2RF hydrocortisone 2.5 % cream 1 applic TOPICAL BID PRN (Reason: Rash) Anat Aerosphere 160-9-4.8 mcg/actuation HFA aerosol inhaler 2 inh inhalation BID Qty: 3 3RF mometasone 50 mcg/actuation spray,non-aerosol 2 spray intranasal DAILY Qty: 17 6RF Rx Instructions: administer into each nostril escitalopram oxalate 20 mg tablet 20 mg PO DAILY Qty: 90 3RF albuterol sulfate 2.5 mg /3 mL (0.083 %) solution for nebulization 2.5 mg INHALATION Q4H PRN (Reason: shortness of breath or wheezing) Qty: 90 3RF baclofen 10 mg tablet 10 mg PO BID PRN (Reason: muscle spasm) Qty: 60 1RF pravastatin 20 mg tablet 20 mg PO QHS Qty: 90 2RF propranolol 40 mg tablet 40 mg PO BID Qty: 180 2RF meloxicam 15 mg tablet 15 mg PO DAILY PRN (Reason: pain) Qty: 60 0RF dicyclomine 20 mg tablet 20 mg PO TID Qty: 90 1RF pantoprazole [Protonix] 40 mg tablet,delayed release (DR/EC) 40 mg PO DAILY Qty: 90 3RF Primary Care Provider: Fco Bell Referrals: Fco Bell MD [Primary Care Provider] - Activity Restrictions/Additional Instructions: Please use your pain medicine as needed. Perform gentle range of motion exercises, ice and heat Disposition Disposition: Home, Self Care
[2022-06-16 12:09] LABS: Absolute Neutrophil Count 1.9 X10^3/uL (2.0-7.7); Basophil# 0.02 X10^3/uL; Basophil% 0.4 % (0-1); Eosinophil# 0.15 X10^3/uL; Eosinophils% 3.3 % (0-5); Hematocrit 39.9 % (37-47); Hemoglobin 12.4 g/dL (12.0-15.0); Lymphocyte % 46.5 % (19-41); Mean Corp Hgb Conc 31.1 g/dL (32-36); Mean Corpuscular Volume 96.4 fL (81-99); Mean Platelet Vol. 8.7 fl (6.2-12.0); Monocyte# 0.32 X10^3/uL; Monocyte% 7.1 % (0-10); NRBC Flagged by Analyzer 0 % (0-5); Neutrophil # 1.92 X10^3/uL (2.7-7.7); Neutrophil % 42.5 % (47-70); Platelet Count 272 K/mm3 (150-450); RBC Distribution Width CV 13.3 % (11.6-14.6); RBC Distribution Width SD 47.3 fl (35.1-43.9); Red Blood Count 4.14 M/mm3 (4.2-5.4); White Blood Count 4.5 K/mm3 (4.4-11.0)
[2022-06-16 12:22] LABS: D-Dimer Quantitative (DVT/PE) 1.14 FEU/ug/m (0.27-0.49)
[2022-06-16 12:26] LABS: Anion Gap 9 (5-15); BUN 12 mg/dL (7-18); BUN/Creat Ratio 12.6 RATIO (10-20); Calcium,Total 9.2 mg/dL (8.5-10.1); Chloride 105 mmol/L (98-107); Creatinine, Serum 0.95 mg/dL (0.55-1.02); EST Glomerular Filtration Rate 62 mL/min (>60); Est Glom Filt Rate - Afr Amer 75 mL/min (>60); Estimated Creatinine Clearance 50.85 ml/min; Glucose 234 mg/dL (74-106); Potassium 3.5 mmol/L (3.5-5.1); Sodium Level 143 mmol/L (136-145); Troponin-I HS (w/2H Reflex) 4 pg/mL (3.0-54.0)
--- NOTE | 2022-06-16 12:26 | CT_ITS ---
STUDY: CTA CHEST REASON FOR EXAM: Female, 71 years old. Shortness of breath RADIATION DOSAGE (If Supplied By Facility): CTDIvol = ( 12.22 ) mGy, DLP = ( 532.15 ) mGycm TECHNIQUE: The examination was performed with the intravenous administration of IV 100mL Isovue-370. Post-processing of the angiographic images was performed, with multiplanar reformation and 3D reconstruction. Individualized dose optimization techniques were used for this CT. COMPARISON: November 12, 2021 FINDINGS: Normal enhancement of the main pulmonary artery and right and left pulmonary arteries. Normal enhancement of the bilateral peripheral pulmonary arteries. There is no demonstrated pulmonary embolism. There is atherosclerotic calcification of the aortic arch. There is no demonstrated aortic dissection. Normal heart and pericardium. Normal mediastinum. Normal hilar regions. Normal visualized trachea and bronchi. The lungs are well expanded. There is postoperative change in the right upper lobe. There are multiple, greater than 20, stable pulmonary nodules measuring up to 1.1 cm in the right lower lobe. Normal pleura. Normal chest wall structures. There is degenerative change of the spine. There is chronic posttraumatic change of right ribs. Normal visualized upper abdomen. CT/CTA Chest W/WO Contrast IMPRESSION: CTA chest examination, without a demonstrated pulmonary embolism or arterial dissection. Stable bilateral pulmonary nodules. Electronically Signed: Tyler Skelton MD at 13:24 EDT ,
[2022-06-16 14:07] LABS: Reflex Troponin-HS? (from REC) Y
== END 2022-06-16 13:51 | disposition home or self-care (01) ==
PROVIDERS: Nurse Practitioner; Emergency Provider Emergency Medicine; PCP Internal Medicine; Visit Provider Emergency Medicine
DX: R07.9 Chest pain, unspecified (principal); S29.011A Strain of muscle and tendon of front wall of thorax, initial encounter; X58.XXXA Exposure to other specified factors, initial encounter
CPT/HCPCS: 71045; 71275; 80048; 84484; 85025; 85379; 93005; 99284; Q9967; A4216

== ENCOUNTER → 2022-06-18 | Outpatient (CLI) | payer MEDICARE, SELFPAY | END | disposition home or self-care (01) | LOC: SL 09:49 | PROVIDERS: PCP Internal Medicine; Referring Provider Nurse Practitioner Acute Care; Visit Provider Nurse Practitioner Acute Care | DX: G47.33 Obstructive sleep apnea (adult) (pediatric) (principal) | CPT/HCPCS: 98960; G0463 ==

== ENCOUNTER → 2022-07-11 | Outpatient (CLI) | payer MEDICARE, SELFPAY ==
--- NOTE | 2022-07-11 14:58 | BD_ITS ---
STUDY: DUAL ENERGY X-RAY ABSORPTIOMETRY / DXA REASON FOR EXAM: Female, 71 years old. Postmenopausal screening TECHNIQUE: Bone Mineral Density (BMD) measurements of lumbar spine and left hip were obtained. COMPARISON: None. FINDINGS: Lumbar Spine (L1-L4): g/cm2 (1.287) / T-score (1.2) / Z-score (3.7) Findings are suggestive of normal bone density with a low fracture risk. Left Femur Total: g/cm2 (1.001) / T-score (-0.2) / Z-score (1.0) Left Femoral Neck: g/cm2 (0.837) / T-score (-0.8) / Z-score (0.7) BD/Dexa Bone Density Study IMPRESSION: The patient is considered normal as outlined below according to World Carl Organization (WHO) criteria with a low fracture risk. Reference Information: The T-score is the number of standard deviations above or below the standard which is normal for young adults at their peak bone mineral density. The World Health Organization (WHO) interprets the T-scores as follows: Above -1 Normal bone density Between -1 and -2.5 Osteopenia Equal to / or below -2.5 Osteoporosis As a practical clinical guideline, osteopenia may be graded as follows: Mild -1 through -1.5 Moderate -1.6 through -2.0 Severe -2.1 through -2.4 The Z-score is the number of standard deviations above or below age-matched controls. A Z-score of less than -1.5 would be considered abnormal. References: 1. NIH Osteoporosis and Related Bone Diseases www osteo.org 2. International Society for Clinical Densitometry www iscd.org 3. National Osteoporosis Foundation www nof.org Electronically Signed: Michael Fleming MD at 13:35 EDT ,
== END | disposition home or self-care (01) ==
LOC: OPBD 14:53
PROVIDERS: PCP Internal Medicine; Visit Provider Physician Assistant
DX: Z78.0 Asymptomatic menopausal state (principal)
CPT/HCPCS: 77080

== ENCOUNTER → 2022-10-23 | Outpatient (CLI) | payer MEDICARE, MEDICAID, SELFPAY ==
--- NOTE | 2022-10-23 12:56 | CT_ITS ---
STUDY: CT WITH CONTRAST REASON FOR EXAM: Female, 72 years old. Carcinoid right lung WITH RUL RESECTION AND CHEMO RADIATION DOSAGE (If Supplied By Facility): CTDIvol = ( 12.25 ) mGy, DLP = ( 538.91 ) mGycm TECHNIQUE: Transaxial imaging was performed following intravenous administration of IV 100mL Isovue-300. Multiplanar coronal and sagittal images were reformatted. Individualized dose optimization techniques were used for this CT. COMPARISON: Comparison is made with prior study dated 11/12/2021. FINDINGS: CHEST Stable small benign-appearing bilateral axillary lymph nodes. Stable linear scarring in the posteromedial aspect of the right upper lobe. Stable scarring in the superior segment of the right lower lobe. Stable appearance of the nodular densities in the superior segment of the right lower lobe. Stable appearance of the multiple nodular densities in the left lower lobe. There is no demonstrated pleural abnormality. Normal heart and pericardium. There are multiple small lymph nodes within the mediastinum, which are normal in size and morphology most compatible with reactive lymph hyperplasia. Normal hilar regions. Normal unenhanced pulmonary arteries. Normal aorta arch and descending thoracic aorta. There are multi-level degenerative changes of the thoracic spine. Fatty infiltration of the liver. CT/Chest WITH Contrast IMPRESSION: Stable examination of multiple small nodules scattered in both lungs. Stable scarring in the right upper lobe and lower lobes. Electronically Signed: Michael Fleming MD at 14:22 EST ,
== END | disposition home or self-care (01) ==
LOC: CT 12:55
PROVIDERS: PCP Internal Medicine; Visit Provider Nurse Practitioner Family
DX: D3A.090 Benign carcinoid tumor of the bronchus and lung (principal)
CPT/HCPCS: 71260; Q9967

== ENCOUNTER 2022-12-03 08:36 | Outpatient (RCR) | payer MEDICARE, MEDICAID, SELFPAY | END 2022-12-13 23:59 | LOC: DC 08:36 | PROVIDERS: PCP Internal Medicine; Visit Provider Internal Medicine | DX: E11.9 Type 2 diabetes mellitus without complications (principal) | CPT/HCPCS: 97802 ==

== ENCOUNTER 2023-01-07 08:34 | Outpatient (RCR) | payer MEDICARE, MEDICAID, SELFPAY | END 2023-01-12 23:59 | LOC: DC 08:34 | PROVIDERS: PCP Internal Medicine; Referring Provider Internal Medicine; Visit Provider Internal Medicine | DX: E11.9 Type 2 diabetes mellitus without complications (principal) | CPT/HCPCS: 97803 ==

== ENCOUNTER → 2023-01-20 | Outpatient (CLI) | payer MEDICARE, MEDICAID, SELFPAY ==
--- NOTE | 2023-01-20 08:43 | BI_ITS ---
MAMMOGRAPHY - BILATERAL SCREENING REASON FOR EXAM: Female, 72 years old. Routine annual screening examination. PERTINENT HISTORY: Non-contributory. TECHNIQUE: Digital bilateral breast osman (3D mammographic acquisition) in the CC and MLO projections. 2-D mediolateral oblique (MLO) and craniocaudad (CC) views of both breasts were obtained. CAD: Full Field Digital Mammography with Computer Added Detection was performed. COMPARISON: Comparison is made with prior study January 17, 2022 and January 15, 2021. FINDINGS: Breast Composition: There are scattered areas of fibroglandular density. There are no dominant masses or suspicious calcifications. Stable benign-appearing bilateral axillary lymph nodes. No other significant abnormalities are identified. There has been no significant change since the prior study. BI/SCRN MAMM (CAD)W/OSMAN BILAT IMPRESSION: Stable bilateral screening mammogram. Yearly follow-up mammogram recommended. (A) ASSESSMENT CATEGORY: BIRADS Category 2: Benign. A letter regarding these results will be sent to the patient by the facility within 30 days. Approximately 10% of breast cancers are not detected by mammography. A normal mammogram should not delay biopsy of a clinically suspicious abnormality. [id number] Electronically Signed: Michael Fleming MD at 9:27 EDT ,
== END | disposition home or self-care (01) ==
LOC: OPBI 08:42
PROVIDERS: PCP Internal Medicine; Referring Provider Nurse Practitioner Family; Visit Provider Nurse Practitioner Family
DX: Z12.31 Encounter for screening mammogram for malignant neoplasm of breast (principal)
CPT/HCPCS: 77063; 77067

== ENCOUNTER → 2023-01-30 | Outpatient (CLI) | payer MEDICARE, MEDICAID, SELFPAY | END | disposition home or self-care (01) | LOC: SL 09:49 | PROVIDERS: PCP Internal Medicine; Referring Provider Nurse Practitioner Acute Care; Visit Provider Nurse Practitioner Acute Care | DX: G47.33 Obstructive sleep apnea (adult) (pediatric) (principal) | CPT/HCPCS: 98960; G0463 ==

== ENCOUNTER → 2023-06-05 | Outpatient (CLI) | payer MEDICARE, MEDICAID, SELFPAY | END | disposition home or self-care (01) | PROVIDERS: PCP Internal Medicine; Referring Provider Internal Medicine; Visit Provider Internal Medicine | DX: R00.2 Palpitations (principal) | CPT/HCPCS: 93225; 93226 ==

== ENCOUNTER 2023-07-11 08:04 | Emergency (ER) | payer MEDICARE, MEDICAID, SELFPAY ==
[2023-07-11 08:06] VITALS: BP 117/78; PULSE 97; RESP 14; TEMP 36.4; O2SAT 98; BMI 32.8
[2023-07-11] MEDS: Ondansetron 4 MG/2 ML Vial IV (08:33)
[2023-07-11] MEDS: Morphine 4 MG/ML Syringe IV (08:33)
[2023-07-11 08:46] LABS: Red Blood Cells-Urine 0 SEEN /hpf (0-5)
--- NOTE | 2023-07-11 08:49 | EX.ED.DYSGE1 ---
HPI History of Present Illness Chief Complaint: Abd Pain Detail of Chief Complaint: Lower abdominal pain, urinary symptoms and history of diverticulitis Onset/Context/Timing Onset: Days Context: Sudden Onset Timing: Continuous Quality: Pain Location: Suprapubic and radiates laterally to the right and left Current Severity: Mild Maximum Severity: Moderate Worsened by: Coughing, palpation Relieved by: Nothing Associated Symptoms Associated Symptoms: Nausea and frequency Narrative Narrative: Patient is a 72-year-old woman who presents with lower abdominal pain that she localizes to the suprapubic area that radiates outward. She is concerned she has diverticulitis. She denies fever, chills night sweats. She does report frequency. She denies change in the color of her urine. She denies odor to her urine. She denies hematuria. She denies flank pain. She denies history of renal ureterolithiasis. She states she has chronic diarrhea. Her diarrhea has gotten worse. She has not been on an antibiotic recently. She denies blood or mucus in her stool. She then corrected herself and states she has not looked recently. She denies myalgias arthralgias. She denies joint swelling. She denies dermatologic lesions. Prior similar symptoms: Yes (Diverticulitis.) Recent Illness/Hospitalization: No PFSH [facility] Medical History Change in skin mole Chest wall pain Chronic bronchitis Chronic diarrhea Diffuse idiopathic pulmonary neuroendocrine cell hyperplasia Diverticulosis Essential tremor GERD (gastroesophageal reflux disease) GI problem Hypertriglyceridemia Localized swelling of chest wall Palpitations Preoperative evaluation to rule out surgical contraindication Screening for breast cancer Seasonal allergies Subcutaneous nodule of right lower leg Tremor Type 2 diabetes mellitus Vitamin deficiency Home Medications blood pressure monitor #1 ea 02/18/20 [Rx Last Taken Unknown] octreotide,microspheres 30 mg intramuscular susp, extended release (Sandostatin LAR Depot) 30 mg IM Q4W 02/18/20 [History Last Taken Unknown] nebulizers #1 ea 08/01/20 [Rx Last Taken Unknown] Disability Placard #1 ea 05/25/21 [Rx Last Taken Unknown] albuterol sulfate 2.5 mg/3 mL (0.083 %) solution for nebulization 2.5 mg (3 mL) inhalation Q4H PRN shortness of breath or wheezing #90 mL 10/18/22 [Rx Last Taken Unknown] baclofen 10 mg tablet 10 mg PO BID PRN muscle spasm #60 tabs 07/02/22 [Rx Last Taken Unknown] dicyclomine 20 mg tablet 20 mg PO TID #90 tabs 07/02/22 [Rx Last Taken Unknown] escitalopram oxalate 20 mg tablet 20 mg PO DAILY #90 tabs 07/02/22 [Rx Last Taken Unknown] meloxicam 15 mg tablet 15 mg PO DAILY PRN pain #60 tabs 07/02/22 [Rx Last Taken Unknown] mometasone 50 mcg/actuation nasal spray 2 spray intranasal DAILY #17 grams 07/02/22 [Rx Last Taken Unknown] pantoprazole 40 mg tablet,delayed release (Protonix) 40 mg PO DAILY #90 tabs 07/02/22 [Rx Last Taken Unknown] pravastatin 20 mg tablet 20 mg PO QHS #90 tabs 07/02/22 [Rx Last Taken Unknown] albuterol sulfate 90 mcg/actuation aerosol inhaler (Ventolin HFA) 2 puff inhalation Q6H PRN Sob &/Or Wheezing #3 ea 01/21/23 [Rx Last Taken Unknown] budesonide 160 mcg-glycopyr 9 mcg-formot 4.8 mcg/actuation HFA inhaler (Breztri Aerosphere) 2 inh inhalation BID #3 ea 01/21/23 [Rx Last Taken Unknown] amlodipine 5 mg tablet See Rx Instructions .Route .COMPLEX #90 tabs 02/20/23 [Rx Last Taken Unknown] blood-glucose meter (Accu-Chek Guide Glucose Meter) #1 ea 02/20/23 [Rx Last Taken Unknown] lancets (Accu-Chek Softclix Lancets) #100 ea 02/20/23 [Rx Last Taken Unknown] blood sugar diagnostic (Blood Glucose Test strips) #100 ea 04/15/23 [Rx Last Taken Unknown] metformin 500 mg tablet,extended release 24hr 500 mg PO QPM #90 tabs 05/28/23 [Rx Last Taken Unknown] primidone 50 mg tablet See Rx Instructions .Route .COMPLEX 3 months #240 tabs 05/29/23 [Rx Last Taken Unknown] Allergy/AdvReac Type Severity Reaction Status Date / Time hydromorphone [From Dilaudid] Allergy Severe Hallucinati Verified 07/11/23 08:05 ons Family History Brother Diabetes Heart disease Lung cancer Daughter Alcohol abuse Anxiety Father Dementia Mother Enlarged heart Surgical History History of appendectomy History of cholecystectomy History of total hip replacement Hx of hysterectomy Hx of oophorectomy Social History Smoking Status: Never smoker second hand exposure: No alcohol intake: current alcohol intake frequency: a few times a month Alcohol type: wine substance use type: does not use what type of physical activity do you participate in: none nico/religious: Sikh seatbelt use: always do you feel safe at home: Yes ROS ROS ED Constitutional Constitutional ED: Denies chills, fever(s), subjective or sweats Eyes Eyes: Denies blurry vision, change in vision or diplopia ENT ENT ED: Denies rhinorrhea or sore throat Cardiovascular Cardiovascular: Denies chest pain or palpitations Respiratory/Chest Respiratory/Chest: Denies cough, dyspnea or dyspnea on exertion Gastrointestinal Gastrointestinal: Reports abdominal pain and diarrhea; Denies constipation, melena, nausea or vomiting Genitourinary Genitourinary ED: Reports urinary frequency; Denies dysuria or hematuria Musculoskeletal Musculoskeletal: Denies arthralgias, back pain, myalgias or neck pain Integumentary Denies rash Neurologic Neurologic: Denies headache(s) or paresthesias Endocrine Endocrinology: Denies cold intolerance or heat intolerance Hematologic/Lymphatic Hematologic/Lymphatic: Reports systems reviewed and no addt'l complaints, except as documented EXAM Physical Exam Const Vital Signs: 07/11/23 08:06 Temperature 97.6 F L Temperature Source Temporal Pulse Rate 97 Respiratory Rate 14 Blood Pressure 117/78 Blood Pressure Mean 91 Pulse Ox 98 Oxygen Delivery Method Room Air Positive well nourished, well developed and obese General Appearance ED: well developed and NAD; Negative for cyanotic, diaphoretic or pallor Nutritional Appearance: obese HEENT Reports moist mucous membranes HEENT Narrative: Head is atraumatic and normocephalic. Ears are normal. Nares patent. Posterior pharynx is normal. Eyes PERRL and EOMs intact bilaterally Eyes Narrative: Patient has tearing left eye. Conjunctive a is not injected General Eye ED: Negative for pale conjunctiva or scleral icterus Neck no lymphadenopathy, supple and no JVD General: tenderness Chest Wall inspection of chest normal and palpation of chest normal Resp normal respiratory effort and clear to auscultation bilaterally Cardio regular rate, regular rhythm, S1 normal heart sound, S2 normal heart sound and no murmurs GI normal to inspection, nondistended, normoactive bowel sounds, non-distended and no masses; Negative for non-tender or hepatosplenomegaly Palpation: soft and tender LLQ, RLQ, McBurney's point, periumbilical, suprapubic and Obturator sign Narrative: There is no CVA tenderness. There is significant tenderness over the bladder. Back/Spine no CVA tenderness Extremity normal to inspection General Extremety ED: Negative for edema or tenderness General Extremity: Negative for edema Neuro oriented x3, CN's II-XII intact bilaterally and no sensory deficits noted Psych mental status grossly normal Skin no rashes or lesions noted, no wounds and skin turgor normal General Skin Exam: Negative for jaundice or pallor MDM MDM MDM Narrative Medical decision making narrative: Differential diagnosis is abdominal pain of unknown etiology, urinary tract infection, atypical presentation for ureterolithiasis, diverticulitis. There is no concern for appendicitis since she is status post appendectomy. Her work-up included CBC, BMP, and UA weight. Lab Data Attestation: I reviewed the patient's lab results. Lab results narrative: CBC is normal other than mild anemia. Electrolyte panel is normal. UA is unremarkable. Macro was positive for occult blood only. Negative for leukoesterase and nitrites. At the time of this update micro is pending. Microscopic indicates contaminated specimen. Labs: Laboratory Results - last 24 hr 07/11/23 08:30 WBC 7.2 RBC 3.87 L Hgb 11.3 L Hct 37.0 MCV 95.6 MCH 29.2 MCHC 30.5 L RDW Std Deviation 51.0 H RDW Coeff of Doe 14.5 Plt Count 282 MPV 8.9 Immature Gran % (Auto) 0.100 Neut % (Auto) 54.0 Lymph % (Auto) 34.2 [place] % (Auto) 9.4 Eos % (Auto) 1.7 Baso % (Auto) 0.6 Absolute Neuts (auto) 3.9 Absolute Lymphs (auto) 2.47 Nucleated RBC % 0 Sodium 138 Potassium 3.7 Chloride 106 Carbon Dioxide 28.0 Anion Gap 4 L BUN 13 Creatinine 0.85 Estim Creat Clear Calc 56.01 Est GFR (MDRD) Af Amer 84 Est GFR (MDRD) Non-Af 70 BUN/Creatinine Ratio 15.3 Glucose 146 H Calcium 9.0 Urine Color Yellow Urine Clarity Clear Urine pH 5.0 Ur Specific [place] 1.020 Urine Protein Negative Urine Glucose (UA) Normal Urine Ketones Negative Urine Occult Blood 10 H Urine Nitrite Negative Urine Bilirubin Negative Urine Urobilinogen Normal Ur Leukocyte Esterase Negative Urine RBC 0 SEEN Urine WBC 0-5 SEEN Ur Squamous Epith Cells 10-25 SEEN Urine Bacteria 1+ Urine Mucus 1+ Radiography Diagnostic Testing: Clinical Impression(s) from Imaging Studies Abdomen/Pelvis CT 07/11/23 09:19 IMPRESSION: Stable noncalcified pulmonary nodules at the lung bases. Fatty infiltration of the liver. Status post cholecystectomy, appendectomy and hysterectomy. Sigmoid diverticulosis with no radiographic evidence of diverticulitis. Electronically Signed: Michael Fleming MD at 11:09 EDT , Treatment and Re-Evaluation :: Patient was told the cause of her pain is unknown. CAT scan does reveal diverticulosis without evidence of diverticulitis. Discharge Plan Triage Chief Complaint: Abd Pain ED Provider: Ajit Rodriguez Dx/Rx/DC Orders Clinical Impression: Abdominal pain, acute, bilateral lower quadrant, Hypertension, Type 2 diabetes mellitus, Hypertriglyceridemia Instructions: ED Abdominal Pain Unkn Cause Fem Prescriptions: No Action Sandostatin LAR Depot 30 mg suspension,extended rel recon 30 mg IM Q4W (DME) blood pressure monitor Kit See Rx Instructions .ROUTE .MEDSUPPLY Qty: 1 0RF Rx Instructions: Check blood pressure daily for hypertension I10 (DME) nebulizers Misc See Rx Instructions .ROUTE .MEDSUPPLY Qty: 1 0RF Rx [place]: [place] [place] Plac[place] See Rx Instructions .ROUTE .MEDSUPPLY Qty: 1 0RF Rx Instructions: Expires in 5 years meloxicam 15 mg tablet 15 mg PO DAILY PRN (Reason: pain) Qty: 60 0RF albuterol sulfate 2.5 mg /3 mL (0.083 %) solution for nebulization 2.5 mg INHALATION Q4H PRN (Reason: shortness of breath or wheezing) Qty: 90 3RF baclofen 10 mg tablet 10 mg PO BID PRN (Reason: muscle spasm) Qty: 60 1RF dicyclomine 20 mg tablet 20 mg PO TID Qty: 90 1RF escitalopram oxalate 20 mg tablet 20 mg PO DAILY Qty: 90 3RF mometasone 50 mcg/actuation spray,non-aerosol 2 spray intranasal DAILY Qty: 17 6RF Rx Instructions: administer into each nostril pantoprazole [Protonix] 40 mg tablet,delayed release (DR/EC) 40 mg PO DAILY Qty: 90 3RF pravastatin 20 mg tablet 20 mg PO QHS Qty: 90 3RF Breztri Aerosphere 160-9-4.8 mcg/actuation HFA aerosol inhaler 2 inh inhalation BID Qty: 3 3RF albuterol sulfate [Ventolin HFA] 90 mcg/actuation HFA aerosol inhaler 2 puff INHALATION Q6H PRN (Reason: Sob &/Or Wheezing) Qty: 3 3RF metformin 500 mg tablet extended release 24hr 500 mg PO QPM Qty: 90 2RF primidone 50 mg tablet See Rx Instructions .ROUTE .COMPLEX 90 Days Qty: 240 1RF Dose Instruction: TAKE 2 TABLET BY MOUTH DAILY FOR 3 MONTHS TOTAL Rx Instructions: TAKE 3 TABLET BY MOUTH DAILY FOR 3 MONTHS TOTAL (DME) blood-glucose meter [Accu-Chek Guide Glucose Meter] Misc See Rx Instructions .Route Qty: 1 0RF Rx Instructions: As directed (DME) lancets [Accu-Chek Softclix Lancets] Misc See Rx Instructions .Route Qty: 100 3RF Rx Instructions: As directed amlodipine 5 mg tablet See Rx Instructions .ROUTE .COMPLEX Qty: 90 1RF Dose Instruction: TAKE 1 TABLET BY MOUTH EVERY DAY Rx Instructions: TAKE 1 TABLET BY MOUTH EVERY DAY (DME) Blood Glucose Test Strip See Rx Instructions .Route Qty: 100 3RF Rx Instructions: Check BID Primary Care Provider: Fco Bell Referrals: Fco Bell MD [Primary Care Provider] - 3-5 Days if not improving Disposition Disposition: Home, Self Care
[2023-07-11 08:50] LABS: Absolute Lymphocyte Count 2.47 X10^3/uL (0.83-4.51); Absolute Neutrophil Count 3.9 X10^3/uL (2.0-7.7); Basophil# 0.04 X10^3/uL; Basophil% 0.6 % (0-1); Eosinophil# 0.12 X10^3/uL; Eosinophils% 1.7 % (0-5); Hemoglobin 11.3 g/dL (12.0-15.0); Lymphocyte # 2.47 X10^3/ul (0.83-4.51); Lymphocyte % 34.2 % (19-41); Mean Corp Hgb Conc 30.5 g/dL (32-36); Mean Corpuscular Hgb 29.2 pg (27.0-32.0); Mean Corpuscular Volume 95.6 fL (81-99); Mean Platelet Vol. 8.9 fl (6.2-12.0); Monocyte# 0.68 X10^3/uL; Monocyte% 9.4 % (0-10); NRBC Flagged by Analyzer 0 % (0-5); Neutrophil # 3.91 X10^3/uL (2.7-7.7); Platelet Count 282 K/mm3 (150-450); RBC Distribution Width CV 14.5 % (11.6-14.6); Red Blood Count 3.87 M/mm3 (4.2-5.4); White Blood Count 7.2 K/mm3 (4.4-11.0)
[2023-07-11 08:55] LABS: Color, Urine Yellow (Yellow); Glucose, Dipstick Normal (Normal); Ketone-Dipstick Negative (Negative); Leukocyte Esterase-Dipstick Negative /ul (Negative); Nitrite-Dipstick Negative (Negative); Occult Blood-Urine 10 /ul (Negative); Protein-Dipstick Negative (Negative); Urine Bilirubin Dipstick Negative (Negative); Urine Clarity Clear (Clear); Urine Urobilinogen Normal (Normal)
[2023-07-11 09:06] LABS: Anion Gap 4 (5-15); BUN 13 mg/dL (7-18); BUN/Creat Ratio 15.3 RATIO (10-20); Bacteria 1+ /hpf (None Seen); Chloride 106 mmol/L (98-107); Creatinine, Serum 0.85 mg/dL (0.55-1.02); EST Glomerular Filtration Rate 70 mL/min (>60); Est Glom Filt Rate - Afr Amer 84 mL/min (>60); Estimated Creatinine Clearance 56.01 ml/min; Glucose 146 mg/dL (74-106); Mucous, Urine 1+ /hpf (<or=2+); Potassium 3.7 mmol/L (3.5-5.1); Sodium Level 138 mmol/L (136-145); Squamous Epithelial Cells - UA 10-25 SEEN /hpf (5-10); White Blood Cells 0-5 SEEN /hpf (0-5)
--- NOTE | 2023-07-11 09:19 | CT_ITS ---
STUDY: CT ABDOMEN AND PELVIS WITH CONTRAST REASON FOR EXAM: Female, 72 years old. Left lower quadrant pain. History of diverticulitis. RADIATION DOSAGE (If Supplied By Facility): CTDIvol = ( 19.65 ) mGy, DLP = ( 1441.85 ) mGycm TECHNIQUE: Transaxial images were obtained from the dome of the diaphragm to the symphysis pubis without oral contrast. IV 100mL Isovue-300 was administered. Sagittal and coronal images were reconstructed. Individualized dose optimization techniques were used for this CT. COMPARISON: Comparison is made with prior CT scan of the thorax dated October 23, 2022. FINDINGS: Stable small noncalcified nodules at both lung bases. The visualized portions of the heart are within normal limits. There is decreased attenuation of the liver consistent with steatosis. There are surgical clips in the gallbladder fossa consistent with a prior cholecystectomy. Normal spleen. Normal pancreas. Normal bilateral adrenal glands. Normal right kidney. Normal left kidney. Normal visualized stomach. Normal small intestine. There are multiple colonic diverticula consistent with diverticulosis. There are surgical clips in the region of the appendix consistent with a prior appendectomy. Normal abdominal aorta. Normal inferior vena cava. Normal retroperitoneum. Normal urinary bladder. There is absence of the uterus consistent with a prior hysterectomy. Normal abdominal wall. The patient is status post right hip replacement. CT/Abdomen/Pelvis W IV Cont ONLY IMPRESSION: Stable noncalcified pulmonary nodules at the lung bases. Fatty infiltration of the liver. Status post cholecystectomy, appendectomy and hysterectomy. Sigmoid diverticulosis with no radiographic evidence of diverticulitis. Electronically Signed: Michael Fleming MD at 11:09 EDT ,
== END 2023-07-11 11:44 | disposition home or self-care (01) ==
PROVIDERS: Emergency Provider Emergency Medicine; PCP Internal Medicine; Visit Provider Emergency Medicine
DX: R10.31 Right lower quadrant pain (principal); E11.9 Type 2 diabetes mellitus without complications; I10 Essential (primary) hypertension; R10.32 Left lower quadrant pain; E78.1 Pure hyperglyceridemia; R35.0 Frequency of micturition; K52.9 Noninfective gastroenteritis and colitis, unspecified; Z79.899 Other long term (current) drug therapy; Z79.84 Long term (current) use of oral hypoglycemic drugs
CPT/HCPCS: 74177; 80048; 81001; 85025; 96374; 96375; 99283; Q9967; A4216; J2405

== ENCOUNTER 2023-07-22 23:13 | Emergency (ER) | payer MEDICARE, MEDICAID, SELFPAY ==
[2023-07-22 23:14] VITALS: BP 152/84; PULSE 86; RESP 20; TEMP 35.8; O2SAT 96; BMI 34.2
--- NOTE | 2023-07-22 23:34 | RAD_ITS ---
EXAM: XR Humerus Min 2 Views INDICATION: Female, 72 years old. Post traumatic left shoulder pain TECHNIQUE: AP and lateral views COMPARISON: None FINDINGS: BONES: There is a subtle cortical defect involving the anterior aspect of the radial head best seen on the lateral view of the elbow. No lytic or blastic lesion. JOINTS: There is anterior inferior dislocation of the left glenohumeral joint. The acromioclavicular joint radiocapitellar and ulnotrochlear joints are in normal alignment. SOFT TISSUES: No soft tissue abnormality. RAD/Humerus min 2 Views IMPRESSION: 1. No acute abnormality of the acute anterior-inferior left glenohumeral joint dislocation. 2. Mild impaction fracture deformity of the anterior aspect of the radial head. Electronically Signed: Adan Carrion MD at 0:19 EST ,
--- NOTE | 2023-07-22 23:34 | RAD_ITS ---
EXAM: XR Shoulder Min 2 Views INDICATION: Female, 72 years old. Posttraumatic left shoulder pain TECHNIQUE: Internal rotation and scapular Y views COMPARISON: None FINDINGS: No humeral fracture. Scapula and clavicle are intact. Visualized left upper ribs are intact. No lytic or blastic lesion. JOINTS: There is an anterior inferior dislocation of the left glenohumeral joint. Left clavicular joint is in normal alignment demonstrate mild to moderate degenerative change. SOFT TISSUES: No soft tissue abnormality. Visualized left upper lung is normal. RAD/Shoulder min 2 Views IMPRESSION: Anterior left glenohumeral joint dislocation Electronically Signed: Adan Carrion MD at 0:21 EST ,
--- NOTE | 2023-07-22 23:36 | ED.VIS.FALL ---
HPI HPI - Fall History of Present Illness Chief Complaint: Fall Informant: patient and family Narrative Narrative: Patient brought by EMS from home for mechanical fall. Family is currently present. She states she tripped over a basket outstretched left arm. Pain in left shoulder and upper arm. States EMS arrival or tingling down her arm. She is right-hand dominant. Denies head injuries. Denies any loss of conscious. No chest or back pain. No lower extremity pain. History of right hip replacement 20 years ago in [place]. She does not take anticoagulant medications. 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 Denies any cardiac review. Allergy to Dilaudid causing hallucinations. [facility] Medical History Change in skin mole Chest wall pain Chronic bronchitis Chronic diarrhea Diffuse idiopathic pulmonary neuroendocrine cell hyperplasia Diverticulosis Essential tremor GERD (gastroesophageal reflux disease) GI problem Hypertriglyceridemia Localized swelling of chest wall Palpitations Preoperative evaluation to rule out surgical contraindication Screening for breast cancer Seasonal allergies Subcutaneous nodule of right lower leg Tremor Type 2 diabetes mellitus Vitamin deficiency Home Medications blood pressure monitor #1 ea 02/18/20 [Rx Last Taken Unknown] octreotide,microspheres 30 mg intramuscular susp, extended release (Sandostatin LAR Depot) 30 mg IM Q4W 02/18/20 [History Last Taken Unknown] nebulizers #1 ea 08/01/20 [Rx Last Taken Unknown] Disability Placard #1 ea 05/25/21 [Rx Last Taken Unknown] albuterol sulfate 2.5 mg/3 mL (0.083 %) solution for nebulization 2.5 mg (3 mL) inhalation Q4H PRN shortness of breath or wheezing #90 mL 07/02/22 [Rx Last Taken Unknown] baclofen 10 mg tablet 10 mg PO BID PRN muscle spasm #60 tabs 07/02/22 [Rx Last Taken Unknown] dicyclomine 20 mg tablet 20 mg PO TID #90 tabs 07/02/22 [Rx Last Taken Unknown] escitalopram oxalate 20 mg tablet 20 mg PO DAILY #90 tabs 07/02/22 [Rx Last Taken Unknown] meloxicam 15 mg tablet 15 mg PO DAILY PRN pain #60 tabs 07/02/22 [Rx Last Taken Unknown] mometasone 50 mcg/actuation nasal spray 2 spray intranasal DAILY #17 grams 07/02/22 [Rx Last Taken Unknown] pantoprazole 40 mg tablet,delayed release (Protonix) 40 mg PO DAILY #90 tabs 07/02/22 [Rx Last Taken Unknown] pravastatin 20 mg tablet 20 mg PO QHS #90 tabs 07/02/22 [Rx Last Taken Unknown] albuterol sulfate 90 mcg/actuation aerosol inhaler (Ventolin HFA) 2 puff inhalation Q6H PRN Sob &/Or Wheezing #3 ea 01/21/23 [Rx Last Taken Unknown] budesonide 160 mcg-glycopyr 9 mcg-formot 4.8 mcg/actuation HFA inhaler (Breztri Aerosphere) 2 inh inhalation BID #3 ea 01/21/23 [Rx Last Taken Unknown] amlodipine 5 mg tablet See Rx Instructions .Route .COMPLEX #90 tabs 02/20/23 [Rx Last Taken Unknown] blood-glucose meter (Accu-Chek Guide Glucose Meter) #1 ea 02/20/23 [Rx Last Taken Unknown] lancets (Accu-Chek Softclix Lancets) #100 ea 02/20/23 [Rx Last Taken Unknown] blood sugar diagnostic (Blood Glucose Test strips) #100 ea 04/15/23 [Rx Last Taken Unknown] metformin 500 mg tablet,extended release 24hr 500 mg PO QPM #90 tabs 05/28/23 [Rx Last Taken Unknown] primidone 50 mg tablet See Rx Instructions .Route .COMPLEX 3 months #240 tabs 05/29/23 [Rx Last Taken Unknown] Allergy/AdvReac Type Severity Reaction Status Date / Time hydromorphone [From Dilaudid] Allergy Severe Hallucinati Verified 07/22/23 23:18 ons Family History Brother Diabetes Heart disease Lung cancer Daughter Alcohol abuse Anxiety Father Dementia Mother Enlarged heart Surgical History History of appendectomy History of cholecystectomy History of total hip replacement Hx of hysterectomy Hx of oophorectomy Social History Smoking Status: Never smoker second hand exposure: No alcohol intake: current alcohol intake frequency: a few times a month Alcohol type: wine substance use type: does not use what type of physical activity do you participate in: none nico/yarsanism: Denominational seatbelt use: always do you feel safe at home: Yes ROS ROS ED Constitutional Constitutional ED: Denies chills, fever(s) or sweats Eyes Eyes: Denies change in vision ENT ENT ED: Denies dysphagia or sore throat Cardiovascular Cardiovascular: Denies chest pain, leg edema, palpitations or racing heartbeat Respiratory/Chest Respiratory/Chest: Denies cough, dyspnea or dyspnea on exertion Gastrointestinal Gastrointestinal: Denies abdominal pain, diarrhea, nausea or vomiting Genitourinary Genitourinary ED: Denies dysuria, hematuria or urinary frequency Musculoskeletal Musculoskeletal: Reports extremity pain; Denies back pain or neck pain Integumentary Denies rash or wounds Neurologic Neurologic: Denies headache(s), paresthesias or weakness EXAM Physical Exam Const Vital Signs: 07/22/23 23:14 07/22/23 23:17 07/23/23 00:33 Temperature 96.4 F L Temperature Source Temporal Pulse Rate 86 75 Respiratory Rate 20 H 19 H Respiratory Effort Normal Non-Labored Respiratory Depth Normal Respiratory Pattern Normal Blood Pressure 152/84 H 145/76 H Blood Pressure Mean 106 99 Pulse Ox 96 99 Oxygen Delivery Method Room Air Room Air Positive well nourished and well developed Constitutional Narrative: 2.5 L nasal cannula GCS 15. General Appearance ED: well developed and NAD HEENT Reports moist mucous membranes normocephalic and atraumatic Eyes PERRL, EOMs intact bilaterally and conjunctivae normal General Eye ED: Yes normal appearance of both eyes Neck no lymphadenopathy and supple General: Negative for tenderness Chest Wall Chest: Negative for tenderness Resp normal respiratory effort and normal air movement Effort and Inspection: symmetric chest movement; Negative for respiratory distress Cardio regular rate, regular rhythm and no murmurs Peripheral Pulses: pulses 2+ throughout GI normal to inspection, nondistended, normoactive bowel sounds and non-tender Palpation: Negative for guarding or rebound tenderness present Back/Spine no CVA tenderness and no thoracic nor lumbar tenderness Extremity Extremity Narrative: Right upper extremity: Full range of motion. Pulse intact distally. Left upper extremity: No clavicle tenderness. There is deformity at the proximal shoulder with defect noted. Pain worse with movement. Mild tenderness mid humerus. No deformities there. No elbow deformities. No forearm deformities. Neuro vas intact distally. Lower extremities: Negative logroll bilaterally. General Extremety ED: Negative for edema or tenderness General Extremity: Negative for edema Neuro oriented x3 and no sensory deficits noted Sensorium / Orientation: awake and alert Skin no rashes or lesions noted and no wounds MDM MDM MDM Narrative Medical decision making narrative: Interventions / MDM: Differential diagnosis: Dislocation, fracture Diagnosis considered but do not suspect: N/A My EKG interpretation: N/A Imaging independently reviewed and interpreted by myself: Left shoulder 3 views: Anterior shoulder dislocation, no fracture. 2 view humerus: No fracture noted. Per radiology notes concerns for mild impaction deformity anterior aspect of the radial head. Postreduction 1 view shoulder: Confirm relocation. External documents reviewed: N/A Test considered but not ordered:N/A ED course: Patient treated with IM fentanyl for pain control. Sent over for x-rays shoulder and humerus Results reviewed by myself confirming anterior shoulders location. Discussed results patient family consent was obtained for shoulder relocation. Additional pain medications ordered. 0015: Consent obtained from patient and daughter at bedside. Risks and benefits discussed. Patient given fentanyl 50 mics IM. Patient sat upright at bedside vertical position, proximal maneuver performed, successful reduction performed. Neuro vas intact post reduction, sling was placed. Post x-ray films ordered. Radiology read of humerus concerns for radial head impaction. Clinical reevaluation after reduction she is nontender at the radial head on exam. 0044: Pain controlled with reduction currently in a sling. X-ray confirms reduction. She will use Tylenol 1 g every 6 hours she is given follow-up with on-call orthopedist for outpatient follow-up. Patient ambulated in department with no difficulties prior to discharge. Daughter does live at home that can help her mother. Re-evaluation: stable Disposition discussed with patient/family/significant other: Patient and family Case discussed with consulting clinician: N/A This note was generated with [employer] dictation software. It may contain incorrect words, spelling, and punctuation that were not noted in checking the note before signing. Radiography Diagnostic Testing: Clinical Impression(s) from Imaging Studies Humerus X-Ray 07/22/23 23:34 IMPRESSION: 1. No acute abnormality of the acute anterior-inferior left glenohumeral joint dislocation. 2. Mild impaction fracture deformity of the anterior aspect of the radial head. Electronically Signed: Adan Carrion MD at 0:19 EST , Shoulder X-Ray 07/22/23 23:34 IMPRESSION: Anterior left glenohumeral joint dislocation Electronically Signed: Adan Carrion MD at 0:21 EST , Shoulder X-Ray 07/23/23 00:21 IMPRESSION: Status post reduction, normal anatomic alignment of the glenohumeral articulation now visualized. Electronically Signed: Nichole Morales MD at 1:24 EST , Discharge Plan Triage Chief Complaint: Fall ED Provider: Ganesh Joy Dx/Rx/DC Orders Clinical Impression: Anterior dislocation of left shoulder, Fall Instructions: ED Dislocation: Shoulder (Reduced) Prescriptions: No Action Sandostatin LAR Depot 30 mg suspension,extended rel recon 30 mg IM Q4W (DME) blood pressure monitor Kit See Rx Instructions .ROUTE .MEDSUPPLY Qty: 1 0RF Rx Instructions: Check blood pressure daily for hypertension I10 (DME) nebulizers Mis See Rx Instructions .ROUTE .MEDSUPPLY Qty: 1 0RF Rx Instructions: As directed ([facility] [place]) Disability Placard See Rx Instructions .ROUTE .MEDSUPPLY Qty: 1 0RF Rx Instructions: Expires in 5 years meloxicam 15 mg tablet 15 mg PO DAILY PRN (Reason: pain) Qty: 60 0RF albuterol sulfate 2.5 mg /3 mL (0.083 %) solution for nebulization 2.5 mg INHALATION Q4H PRN (Reason: shortness of breath or wheezing) Qty: 90 3RF baclofen 10 mg tablet 10 mg PO BID PRN (Reason: muscle spasm) Qty: 60 1RF dicyclomine 20 mg tablet 20 mg PO TID Qty: 90 1RF escitalopram oxalate 20 mg tablet 20 mg PO DAILY Qty: 90 3RF mometasone 50 mcg/actuation spray,non-aerosol 2 spray intranasal DAILY Qty: 17 6RF Rx Instructions: administer into each nostril pantoprazole [Protonix] 40 mg tablet,delayed release (DR/EC) 40 mg PO DAILY Qty: 90 3RF pravastatin 20 mg tablet 20 mg PO QHS Qty: 90 3RF Breztri Aerosphere 160-9-4.8 mcg/actuation HFA aerosol inhaler 2 inh inhalation BID Qty: 3 3RF albuterol sulfate [Ventolin HFA] 90 mcg/actuation HFA aerosol inhaler 2 puff INHALATION Q6H PRN (Reason: Sob &/Or Wheezing) Qty: 3 3RF metformin 500 mg tablet extended release 24hr 500 mg PO QPM Qty: 90 2RF primidone 50 mg tablet See Rx Instructions .ROUTE .COMPLEX 90 Days Qty: 240 1RF Dose Instruction: TAKE 2 TABLET BY MOUTH DAILY FOR 3 MONTHS TOTAL Rx Instructions: TAKE 3 TABLET BY MOUTH DAILY FOR 3 MONTHS TOTAL (DME) blood-glucose meter [Accu-Chek Guide Glucose Meter] Misc See Rx Instructions .Route Qty: 1 0RF Rx Instructions: As directed (DME) lancets [Accu-Chek Softclix Lancets] Misc See Rx Instructions .Route Qty: 100 3RF Rx Instructions: As directed amlodipine 5 mg tablet See Rx Instructions .ROUTE .COMPLEX Qty: 90 1RF Dose Instruction: TAKE 1 TABLET BY MOUTH EVERY DAY Rx Instructions: TAKE 1 TABLET BY MOUTH EVERY DAY (DME) Blood Glucose Test Strip See Rx Instructions .Route Qty: 100 3RF Rx Instructions: Check BID Primary Care Provider: Fco Bell Referrals: Darren Thompson DO [Med Staff - Active Staff] - 3-5 Days NOT,DEFINED [Non-Staff] - Activity Restrictions/Additional Instructions: Dislocation left shoulder, status post reduction in the ED. Questionable radial head fracture from radiology read at the elbow, however clinically nontender on reexamination. Maintain sling with Cayden wrap as a swath. Use Tylenol 1 g every 6 hours as needed. Call tomorrow for follow-up with Dr. Thompson for outpatient evaluation. Disposition Disposition: Home, Self Care Discharge Date/Time: 07/23/23 01:00
[2023-07-22] MEDS: fentaNYL 100 MCG/2 ML Ampul 50 MCG IM (23:39)
[2023-07-23] MEDS: fentaNYL 100 MCG/2 ML Ampul 50 MCG IM (00:17)
--- NOTE | 2023-07-23 00:21 | RAD_ITS ---
STUDY: X-RAY - LEFT SHOULDER REASON FOR EXAM: Female, 72 years old. reduction TECHNIQUE: 2 view(s) of the shoulder. COMPARISON: None. FINDINGS: Limited visualization of the glenohumeral articulation due to limited views. Otherwise alignment is anatomical with no subluxation, status post reduction. There is mild degenerative arthrosis of the acromioclavicular joint without inferior osseous spur formation. Normal acromion. Normal humeral head and visualized proximal humerus. The soft tissue structures are unremarkable. Normal visualized pulmonary apex. RAD/Shoulder min 2 Views IMPRESSION: Status post reduction, normal anatomic alignment of the glenohumeral articulation now visualized. Electronically Signed: Nichole Morales MD at 1:24 EST ,
[2023-07-23 00:33] VITALS: BP 145/76; PULSE 75; RESP 19; O2SAT 99
== END 2023-07-23 01:00 | disposition home or self-care (01) ==
PROVIDERS: Emergency Provider Emergency Medicine; PCP Internal Medicine; Visit Provider Emergency Medicine
DX: S43.015A Anterior dislocation of left humerus, initial encounter (principal); E11.9 Type 2 diabetes mellitus without complications; W18.09XA Striking against other object with subsequent fall, initial encounter; Z99.81 Dependence on supplemental oxygen; Z96.641 Presence of right artificial hip joint; Z79.84 Long term (current) use of oral hypoglycemic drugs; Z79.899 Other long term (current) drug therapy
CPT/HCPCS: 23650; 73030; 73060; 96372; 99284; A4216

== ENCOUNTER → 2023-08-04 | Outpatient (CLI) | payer MEDICARE, MEDICAID, SELFPAY ==
--- NOTE | 2023-08-04 12:51 | PFTCOMP ---
COMPLETE PULMONARY FUNCTION TEST INTERPRETATION Brief HPI: Patient is a 72-year-old Black female, currently under the care of myself, who presents to [facility] for complete pulmonary function tests secondary to diagnosis of carcinoid tumor. Respiratory therapist reports good effort and reproducible results. Interpretation: Forced expiration spirometry shows a severe large airways obstructive ventilatory defect with an FEV1 of 39% predicted. There is a significant bronchodilator response in FVC by strict ATS criteria. Spirograms are of good quality and plateau slowly, indicating slowly emptying areas of the lungs. The respiratory flow volume loop shows decreased expiratory flow rates at all lung volumes consistent with airway obstruction. Lung volumes by body plethysmography show a normal total lung capacity at 4.58 L, 87% predicted. FRC and RV are elevated out of proportion. Lung volume measurements are consistent with air-trapping. Diffusion capacity by carbon monoxide is decreased at 61% predicted. The airway resistance is elevated. Compared to previous pulmonary function tests from 07/20/2020, there has been a significant improvement in DLCO, but continued air trapping. Impression: Partially reversible severe large airways obstructive ventilatory defect resulting in air trapping, but improved DLCO compared to previous
== END | disposition home or self-care (01) ==
LOC: PSN 09:33
PROVIDERS: PCP Internal Medicine; Referring Provider Internal Medicine Critical Care Medicine; Visit Provider Internal Medicine Critical Care Medicine
DX: D3A.090 Benign carcinoid tumor of the bronchus and lung (principal)
CPT/HCPCS: 94060; 94726; 94729

== ENCOUNTER → 2023-09-03 | Outpatient (CLI) | payer MEDICARE, MEDICAID, SELFPAY ==
--- NOTE | 2023-09-03 07:54 | ECHOCS_ITS ---
Reason For Study: FLORECITA Procedure This was a 2D Doppler, Color Flow transthoracic echocardiogram. The study was technically difficult. Contrast injection was performed. Patient was scanned in supine position during reflux assessment. Exam performed in department. Left Ventricle Normal LV size. Left ventricular systolic function is normal. The estimated ejection fraction is 60 %. Stage 1 diastolic dysfunction. No regional wall motion abnormalities noted. Right Ventricle Normal RV size. Normal systolic function. Atria Normal left atrium. Normal right atrium. Mitral Valve Normal mitral valve. Tricuspid Valve Normal tricuspid valve. Aortic Valve The aortic valve is not well visualized. Pulmonic Valve The pulmonic valve is not well visualized. Great Vessels Normal aortic root. The pulmonary artery is normal size. Normal inferior vena cava. Pericardium/Pleural No pericardial effusion. Medication 22 gauge I.V. with prn adaptor inserted into right arm. Diluted definity 2ml given slow IV push to enhance endocardial definition. MMode/2D Measurements & Calculations LVIDd: 3.4 cm IVSd: 1.2 cm LVOT diam: 2.1 cm LVIDs: 2.4 cm LVPWd: 1.0 cm RVDd: 2.4 cm FS: 28.1 % LVOT area: 3.5 cm2 Ao root diam: 3.7 cm LAV(MOD-bp): 34.8 ml LVAd ap4: 30.0 cm2 LAV(MOD-bp) Indexed: 17.5 ml/m2 LVLd ap4: 8.2 cm LAV(MOD-sp2): 37.9 ml EDV(MOD-sp4): 90.6 ml LAV(MOD-sp4): 28.4 ml EDV(sp4-el): 92.9 ml LVAs ap4: 17.5 cm2 LVLs ap4: 7.3 cm ESV(MOD-sp4): 37.4 ml ESV(sp4-el): 35.6 ml EF(MOD-sp4): 58.7 % EF(sp4-el): 61.6 % LVAd ap2: 29.9 cm2 SV(MOD-sp4): 53.2 ml SV(MOD-sp2): 58.9 ml LVLd ap2: 7.7 cm EDV(MOD-sp2): 92.9 ml EDV(sp2-el): 98.9 ml LVAs ap2: 16.7 cm2 LVLs ap2: 6.6 cm ESV(MOD-sp2): 34.0 ml ESV(sp2-el): 36.1 ml EF(MOD-sp2): 63.4 % SV(sp4-el): 57.2 ml LA dimension(2D): 3.2 cm LA A4 area: 12.0 cm2 RA A4 area: 13.6 cm2 Time Measurements MV dec time: 0.20 sec Doppler Measurements & Calculations MV E max arnulfo: 50.6 cm/sec Ao V2 max: 97.1 cm/sec MV A max arnulfo: 68.4 cm/sec MV dec slope: 247.6 cm/sec2 Ao max P.8 mmHg MV E/A: 0.74 Ao V2 mean: 66.7 cm/sec Ao mean P.0 mmHg Ao V2 VTI: 20.4 cm AV (velocity ratio): 0.90 TAYLOR(I,D): 3.1 cm2 TAYLOR(V,D): 3.0 cm2 LV V1 max: 82.9 cm/sec SV(LVOT): 63.3 ml PA V2 max: 86.0 cm/sec LV V1 max P.8 mmHg PA max PG (full): 0.60 mmHg LV V1 mean P.5 mmHg LV V1 mean: 57.8 cm/sec LV V1 VTI: 18.3 cm ECHO/Echo Complete W/ Contrast Interpretation Summary Normal LV size. Left ventricular systolic function is normal. The estimated ejection fraction is 60 %. Stage 1 diastolic dysfunction. Contrast injection was performed. Ordering Physician: Leif Foster Referring Physician: Fco Bell Performed By: Felipa Harper RDCS
== END | disposition home or self-care (01) ==
LOC: CVS 07:54
PROVIDERS: PCP Internal Medicine; Referring Provider Internal Medicine Critical Care Medicine; Visit Provider Internal Medicine Critical Care Medicine
DX: G47.33 Obstructive sleep apnea (adult) (pediatric) (principal); D3A.090 Benign carcinoid tumor of the bronchus and lung
CPT/HCPCS: 93306; Q9957; A4216; C8929

== ENCOUNTER 2023-09-04 15:00 | Outpatient (RCR) | payer MEDICARE, MEDICAID, SELFPAY ==
--- NOTE | 2023-08-12 11:10 | HP.PTEVAL_ITS ---
Patient's Visit Information Visit Information Visit Information: GURVINDER DONOVAN is a 72 year old F referred to Physical Therapy by Dr. Darren Thompson DO with a diagnosis of L ant shoulder dislocation with R rot cuff tear. Date of Evaluation: 08/12/23 Physical Therapist: Hasmukh Ramachandran, PT, ATC Visit Plan Frequency: 2-3x /Week Duration: 4-6 Weeks Plan: L shoulder strengthening (rot cuff), scap stab ex's, AROM, UBE, and HEP Subjective Subjective: DOI: 07/27/23. Pt reports she tripped over a clothes basket at the endo of her bed and fell, which resulted in a dislocated L shoulder. Pt reports she has also been told her doctor thinks she tore her rotator cuff. Pt reports she has been performing ex's at home in an attempt to get better quicker. Pt is R hand dominant. Pt reports right now that what bothers her the most is the numbness that is present in her L UE. Pt is currently retired at this time. Pt reports occasional sleep difficulty, especially if she rolls over on it. Pt reports she is limited with all overhead activity at this time which makes it difficult to perform most of her IADL's such as washing her hair and donning/d offing clothing. 5/10 pain while sitting here at rest, 10/10 at worst Pain L shoulder: Pain Intensity (Out of 10): 5 Pain Intensity Range: 10 Objective Objective: Neuro: B UE sensation is WNL to light touch throughout. R biceps reflex 2/3, L 1/3 ROM: R shoulder flex= 145, abd= 130, ER= 40, IR= WNL; L shoulder flex= 75, abd= 50, ER= 0, IR= severe limitation MMT: R shoulder flex= 18, abd= 23, ER= 20, IR= 28 #F; L shoulder flex= 0, abd=4 , ER= 0, IR= 3 #F Special tests: Unable to perform today secondary to lack of ROM and pain Balance/Special Test Scores Quick DASH Score: 52.6796 Goals Goal 1:: Decrease L shoulder pain x 50% to aid with sleep Goal Time Frame: 4-6 Weeks Goal 2:: Increase L shoulder flex and abd ROM x 30 degrees to aid with overhead activity Goal Time Frame: 4-6 Weeks Goal 3:: Increase R shoulder strength x 5-10 #F in all planes to aid with IADL's Goal Time Frame: 4-6 Weeks Goal 4:: I with HEP Goal Time Frame: 4-6 Weeks Rehabilitation Potential Physical Therapy Diagnosis: Pt has L shoulder pain, weakness, and limited ROM secondary to L ant shoulder dislocation Rehabilitation Potential: Good Anticipated Interventions Patient/Client Instruction: Educate patient on: Condition and Plan of Care For the Purpose of:: To improve self management Therapeutic Exercise to Include: Strength training, Endurance training, Flexibilty training, Active ROM and Scapular Strength/Stabilization For the Purpose of:: To decrease pain, To increase ROM and To improve muscle performance and motor function Cryotherapy (ice pack, ice massage): Yes For the Purpose of:: To decrease pain Text: Thank you for the opportunity to evaluate your patient. For Medicare and Medicare HMO plans, please review the plan of care and approve it. It will need to be FAXED BACK to us at [phone] for Medicare purposes. For Medicare only, by signing this I certify the plan of care. Please let me know if there are questions or concerns regarding this plan of care. Physician Signature: Date:
--- NOTE | 2023-12-25 15:37 | HP.PT.NRP ---
Patient Information Patient Information: GURVINDER DONOVAN was seen in my office for initial evaluation on 08/12/23. The following Plan of Care was established for this patient: POC Established Initial Frequency: 2-3x /Week Initial Duration: 4-6 Weeks Anticipated Interventions Patient/Client Instruction: Educate patient on: Condition and Plan of Care For the Purpose of:: To improve self management Therapeutic Exercise to Include: Strength training, Endurance training, Flexibilty training, Active ROM and Scapular Strength/Stabilization For the Purpose of:: To decrease pain, To increase ROM and To improve muscle performance and motor function Cryotherapy (ice pack, ice massage): Yes For the Purpose of:: To decrease pain Last Seen Last Seen: This patient was last seen in our office . Pertinent comments regarding their Physical therapy will appear below: Pt was treated for 8 PT visits for L shoulder pain through the date of 09/04/23. Pt has not returned through todays date and is discontinued at this time. At this point I will be discontinuing this patient from physical therapy. I would be happy to see this patient again in the future if found appropriate by the physician. Thank you! aHsmukh Ramachandran, PT, ATC Balance/Gait/Functional tests Balance/Special Test Scores Quick DASH Score: [phone]
== END 2023-09-04 19:00 | disposition home or self-care (01) ==
LOC: PT 15:00
PROVIDERS: PCP Internal Medicine; Referring Provider Orthopaedic Surgery; Visit Provider Orthopaedic Surgery
DX: S43.015D Anterior dislocation of left humerus, subsequent encounter (principal); M75.102 Unspecified rotator cuff tear or rupture of left shoulder, not specified as traumatic
CPT/HCPCS: 97110; 97161

== ENCOUNTER → 2023-09-23 | Outpatient (CLI) | payer MEDICARE, MEDICAID, SELFPAY ==
--- NOTE | 2023-09-23 11:56 | RAD_ITS ---
EXAM: XR CHEST, 2 VIEWS CLINICAL INDICATION: cough TECHNIQUE: Frontal and lateral views of the chest. COMPARISON: No relevant prior studies available. FINDINGS: LUNGS AND PLEURAL SPACES: Focal airspace opacification within the superior segment of the left lower lobe suggestive of pneumonia. Hyperlucency within the upper lobes suggestive of emphysema. HEART: Normal heart size. MEDIASTINUM: No mediastinal or hilar mass. BONES/JOINTS: No acute abnormality. RAD/Chest PA and Lateral IMPRESSION: Left lower lobe infiltrate consistent with pneumonia. Emphysema. Electronically Signed: Kody Oliveira MD at 12:44 EST ,
--- OUTSIDE RECORDS SUMMARY | 2023-09-23 12:10 | XMS RPT_ITS | CCD ---
Author Name Unknown Address [address] [place] [address] Organization [facility] Care Team Providers Care Clinical Services Assistant Name Role Phone KATI KIRK Referring Unavailable OLEGHE, EFEWONGBE B Primary Care Unavailable OLEGHE, EFEWONGBE B Primary Care Unavailable SELF, SELF Referring Unavailable Reagan Parikh Unavailable Fco Bell MD Primary Care Provider [phone] JAIDAE EFEWONGBE B Primary Care Unavailable THOMAS, JUANITA Referring Unavailable THOMAS, JUANITA Referring Unavailable OLEGHE, EFEWONGBE B Primary Care Unavailable THOMAS, JUANITA Referring Unavailable OLEGHE, EFEWONGBE B Primary Care Unavailable THOMAS, JUANITA Referring Unavailable OLEGHE, EFEWONGBE B Primary Care Unavailable THOMAS, JUANITA Attending Unavailable OLEGHE, EFEWONGBE B Primary Care Unavailable THOMAS, JUANITA Referring Unavailable THOMAS, JUANITA Attending Unavailable OLEGHE, EFEWONGBE B Primary Care Unavailable THOMAS, JUANITA Referring Unavailable OLEGHE, EFEWONGBE B Primary Care Unavailable THOMAS, JUANITA Referring Unavailable THOMAS, JUANITA Referring Unavailable OLEGHE, EFEWONGBE B Primary Care Unavailable OLEGHE, EFEWONGBE B Primary Care Unavailable AMBROCIO, JUANITA Referring Unavailable FCO BELL MD Primary Care Physician [phone] DIMITRI KEANE, DR ORR Attending UnavailFCO Kim MD Primary Care Unavailab le Allergies Allergy Classification Reported Allergen(s) Allergy Type Date of Onset Reaction(s) Facility (4 sources) HYDROmorphone; Translations: [HYDROMORPHONE HCL] Drug Allergy 01-22-[address] [facility] (1 source) HYDROmorphone; Translations: [hydromorphone] Drug Allergy [facility] Medications Current Medications Medication Drug Class(es) Dates Sig (Normalized) Sig (Original) perflutren lipid microspheres 1.3 mL in NaCl (PF) 0.9% 10 mL injection (DEFINITY) (19 sources) Start: 01-04-2022 End: 04-05-2023 perflutren lipid microspheres 1.3 mL in NaCl (PF) 0.9% 10 mL injection (DEFINITY) Completed/Discontinued Medications Medication Drug Class(es) Dates Sig (Normalized) Sig (Original) albuterol 0.83 mg/ml inhalation solution (13 sources) beta2-Adrenergic Agonist Start: 12-04-2021 albuterol (PROVENTIL) 2.5 mg /3 mL (0.083 %) nebulizer solution USE 1 VIAL EVERY 4 HOURS NEEDED FOR SHORTNESS OF BREATH OR WHEEZING 0 12/04/2021 Active Problems Active Problems Problem Classification Problem Date Documented Date Episodic/Chronic Chronic obstructive pulmonary disease and bronchiectasis (19 sources) Chronic obstructive lung disease; Translations: [Chronic obstructive pulmonary disease, unspecified] Onset: 01-03-2022 Chronic Disorders of lipid metabolism (10 sources) Hypertriglyceridemia; Translations: [Pure hyperglyceridemia] Onset: 01-03-2022 01-03-2022 Chronic Diverticulosis and diverticulitis (10 sources) Diverticulosis of colon; Translations: [Diverticulosis of large intestine without perforation or abscess without bleeding] Onset: 01-03-2022 01-03-2022 Chronic Esophageal disorders (10 sources) Gastroesophageal reflux disease; Translations: [Gastro-esophageal reflux disease without esophagitis] Onset: 01-03-2022 01-03-2022 Chronic Headache; including migraine (1 source) Headache; Translations: [Headache, unspecified] Onset: 11-19-2022 Episodic Noninfectious gastroenteritis (10 sources) Chronic diarrhea; Translations: [Noninfective gastroenteritis and colitis, unspecified] Onset: 01-03-2022 01-03-2022 Episodic Nonspecific chest pain (10 sources) Chest wall pain; Translations: [Other chest pain] Onset: 01-03-2022 01-03-2022 Episodic Nutritional deficiencies (10 sources) Vitamin deficiency; Translations: [Vitamin deficiency, unspecified] Onset: 01-03-2022 01-03-2022 Episodic Other and unspecified benign neoplasm (13 sources) Carcinoid tumor of lung; 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] Onset: 01-03-2022 Episodic Other lower respiratory disease (6 sources) Dyspnea; Translations: [Shortness of breath] Episodic Other lower respiratory disease (10 sources) Disorder of lung; Translations: [Other disorders of lung] Onset: 01-03-2022 01-03-2022 Episodic Other lower respiratory disease (1 source) Nodule of lung; Translations: [Solitary pulmonary nodule] Episodic Other skin disorders (10 sources) Change in skin lesion; Translations: [Disorder of the skin and subcutaneous tissue, unspecified] Onset: 01-03-2022 01-03-2022 Episodic Other upper respiratory disease (10 sources) Seasonal allergy; Translations: [Other seasonal allergic rhinitis] Onset: 01-03-2022 01-03-2022 Chronic Respiratory failure; insufficiency; arrest (adult) (1 source) Chronic hypoxemic respiratory failure; Translations: [Chronic respiratory failure with hypoxia] Chronic Past or Other Problems Problem Classification Problem Date Documented Da te Episodic/Chronic Other and unspecified benign neoplasm (1 source) Benign carcinoid tumor of the bronchus and lung; Translations: [Carcinoid tumor of lung, unspecified whether malignant] Onset: 01-03-2022 Episodic Other lower respiratory disease (6 sources) Chronic cough; Translations: [Chronic cough] Onset: 01-22-2022 Episodic Other lower respiratory disease (1 source) Shortness of breath; Translations: [SOB (shortness of breath)] Onset: 01-08-2022 Episodic Other lower respiratory disease (1 source) Solitary pulmonary nodule; Translations: [Lung nodule] Onset: 01-03-2022 Episodic Results Test Name Value Interpretation Reference Range Facil ity Vital Signs Date Time Vital Sign Value Performing Clinician Facility 11-19-2022 18:25-0500 Diastolic Blood Pressure Non-Invasive [address] KIRBY MOSLEY MD [facility] 11-19-2022 18:25-0500 Heart rate 79 /min DR KIRBY MOSLEY MD [facility] 11-19-2022 18:25-0500 Respiratory rate 18 /min DR KIRBY MOSLEY MD [facility] 11-19-2022 18:25-0500 Systolic Blood Pressure Non-Invasive [address] KIRBY MOSLEY MD [facility] 11-19-2022 17:19-0500 Body temperature 97.7 [degF] DR KIRBY MOSLEY MD [facility] 11-19-2022 17:19-0500 Body weight 95.[address] KIRBY MOSLEY MD [facility] 11-19-2022 17:19-0500 Diastolic Blood Pressure Non-Invasive [address] KIRBY MOSLEY MD [facility] 11-19-2022 17:19-0500 Heart rate 80 /min DR KIRBY MOSLEY MD [facility] 11-19-2022 17:19-0500 Respiratory rate 20 /min DR KIRBY MOSLEY MD [facility] 11-19-2022 17:19-0500 Systolic Blood Pressure Non-Invasive [address] KIRBY MOSLEY MD [facility] 01-22-2022 13:43-0400 Body height 166.4 cm Juanita Thomas PA-C Work Phone: [facility] 01-22-2022 13:43-0400 Body temperature 97.81 [degF] Juanita Thomas PA-C Work Phone: [facility] 01-22-2022 13:43-0400 Body weight 94.8 kg Juanita Thomas PA-C Work Phone: [facility] 01-22-2022 13:43-0400 Diastolic blood pressure 78 mm[Hg] Juanita Thomas PA-C Work Phone: [facility] 01-22-2022 13:43-0400 Heart rate 63 /min Juanita Thomas PA-C Work Phone: [facility] 01-22-2022 13:43-0400 Respiratory rate 20 /min Juanita Thomas PA-C Work Phone: [facility] 01-22-2022 13:43-0400 SaO2% (BldA) [Mass fraction] 99 % Juanita Thomas PA-C Work Phone: [facility] 01-22-2022 13:43-0400 Systolic blood pressure 122 mm[Hg] Juanita Thomas PA-C Work Phone: [facility] 01-03-2022 14:20-0400 Body height 167.6 cm Juanita Thomas PA-C Work Phone: [facility] 01-03-2022 14:20-0400 Body temperature 97.81 [degF] Juanita Thomas PA-C Work Phone: [facility] 01-03-2022 14:20-0400 Body weight 96 kg Juanita Thomas PA-C Work Phone: [facility] 01-03-2022 14:20-0400 Diastolic blood pressure 80 mm[Hg] Juanita Thomas PA-C Work Phone: [facility] 01-03-2022 14:20-0400 Heart rate 62 /min Juanita Thomas PA-C Work Phone: [facility] 01-03-2022 14:20-0400 Respiratory rate 20 /min Juanita Thomas PA-C Work Phone: [facility] 01-03-2022 14:20-0400 SaO2% (BldA) [Mass fraction] 100 % Juanita Thomas PA-C Work Phone: [facility] 01-03-2022 14:20-0400 Systolic blood pressure 147 mm[Hg] Juanita Thomas PA-C Work Phone: [facility] Encounters Encounter Date Encounter Type Care Provider Facility Start: 11-19-2022 End: 11-19-2022 Emergency department patient visit DR KIRBY MOSLEY MD Facility:B Start: 11-19-2022 End: 11-19-2022 Emergency department patient visit DR KIRBY MOSLEY MD [facility] Start: 01-25-2022 End: 01-25-2022 ambulatory JUANITA THOMAS Facility:[facility] Start: 01-22-2022 End: 01-22-2022 ambulatory Pulm Fct Lab Main 11 Other Phone: Pulmonary Medicine Procedures Date Procedure Procedure Detail Performing Clinician Start: 01-22-2022 Noninvasive ear/puls e oximetry multiple deter Juanita Thomas PA-C Work Phone: Start: 01-22-2022 Co diffusing capacity H crystal Thomas PA-C Work Phone: Plan of Treatment Date Care Activity Detail Author Start: 05-16-2022 Influenza vaccination INFLUENZ A (Season Ended) [facility] Start: 01-04-2022 End: 03-06-2022 ALPHA 1 ANTITRYP PHEN/GENOTYPE ALPHA 1 ANTITRYP PHEN/GENOTYPE Lab Routine Carcinoid tumor of lung, unspecified whether malignant Chronic obstructive pulmonary disease, unspecified COPD type (HCC) SOB (shortness of breath) Expected: 01/04/2022, Expires: 03/06/2022 [facility] Work Phone: Immunizations Immunization Date Immunization Notes Care Provider Fa cility 06-15-2021 COVID-19 vaccine, ag e 12+ yr (PFIZER-BIONTECH - PURPLE TOP) Juanita Thomas PA-C Work Phone: [facility] 12-15-2020 COVID-19 vaccine, ag e 12+ yr (PFIZER-BIONTECH - PURPLE TOP) Juanita Thomas PA-C Work Phone: [facility] 11-24-2020 COVID-19 vaccine, ag e 12+ yr (PFIZER-BIONTECH - PURPLE TOP) Juanita Thomas PA-C Work Phone: [facility] Payers Date Payer Category Payer Private Health Insurance [id number] 2021 Medicare [id number] 2021 Medicare [employer] [id number] 2021-Present [phone] [address] [place] [address] Medicare [id number] 1950 Unknown [id number] 1950 Unknown [id number] 1950 Unknown [id number] Social History Date Type Detail Facility Tobacco smoking status CTIS Tobacco smoking consumption unknown [facility] Start: 1950 Sex Assigned At Not on file C [facility] Start: 01-02-2022 Tobacco smoking status [facility] Never smoked tobacco [facility] Start: 12-23-2021 End: 01-23-2022 Exposure to SARS-CoV-2 (event) Not sure [facility] Start: 01-02-2022 Tobacco use and exposure Smokeless tobacco non-user [facility] Start: 01-03-2022 End: 02-07-2022 Alcohol intake Ex-drinker (finding) [facility] Tobacco smoking status No Smoking Status Entered [facility] Sex Assigned At Female [facility] Functional Status Date Assessment Result Facility 11-19-2022 Functional Status Independent [facility] chato [facility] 11-19-2022 Functional Status Standard Safet y ID band on, Allergy Band on, Call device within reach, Bed in low position, Wheels locked, Safety level maintained [facility] Mental Status Date Assessment Result Facility 03-07-2023 Mental Status Orientation Oriented x 4 [facility] 11-19-2022 Mental Status [facility] Clinical Notes 12-31-2021 to 11-19-2022 Juanita Thomas PA-C - 01/23/2022 3:30 PM EDTTelephone Encounter - Asia Benson - 01/22/2022 3:09 PM EDTPatient Instructionscrescencio Renee, TANNING CONSULTANT - 01/22/2022 10:38 AM EDT Note Date & Type Note Facility 11-19-2022 Hospital Discharg e instructions Patient Education 11/19/2022 18:53:45 Headache, Unspecified Headache, Unspecified A number of things can cause headaches. The cause of your headache isn t clear. But it doesn t seem to be a sign of any serious illness. Headache affects almost everyone at some time. It is the most common reason people miss days from work or school. You could have a tension headache or a migraine headache. Stress can cause a tension headache. This can happen if you tense the muscles of your shoulders, neck, and scalp without knowing it. If this stress lasts long enough, you may develop a tension headache. It is not clear why migraines occur, but certain things called triggers can raise the risk of having a migraine attack. Migraine triggers may include emotional stress or depression, or by hormone changes during the menstrual cycle. Other triggers include control pills and other medicines, alcohol or caffeine, foods with tyramine (such as aged cheese, wine), eyestrain, weather changes, missed meals, and lack of sleep or oversleeping. Other causes of headache include: Viral illness with high fever Head injury with concussion Sinus, ear, or throat infection Dental pain and jaw joint (TMJ) pain More serious but less common causes of headache include stroke, brain hemorrhage, brain tumor, meningitis, and encephalitis. Home care Follow these tips when taking care of yourself at home: Don t drive yourself home if you were given pain medicine for your headache. Instead, have someone else drive you home. Try to sleep when you get home. You should feel much better when you wake up. Apply heat to the back of your neck to ease a neck muscle spasm. Take care of a migraine headache by putting an ice pack on your forehead or at the base of your skull. If you have nausea or vomiting, eat a light diet until your headache eases. If you have a migraine headache, use sunglasses when in the daylight or around bright indoor lighting until your symptoms get better. Bright glaring light can make this type of headache worse. Follow-up care Follow up with your healthcare provider, or as advised. Talk with your provider if you have frequent headaches. He or she can help figure out a treatment plan. By knowing the earliest signs of headache, and starting treatment right away, you may be able to stop the pain yourself. When to seek medical advice Call your healthcare provider right away if any of these occur: Your head pain suddenly gets worse after sexual intercourse or strenuous activity Your head pain doesn t get better within 24 hours You aren t able to keep liquids down (repeated vomiting) Fever of 100.4 F (38 C) or higher, or as directed by your healthcare provider Stiff neck Extreme drowsiness, confusion, or fainting Dizziness or dizziness with spinning sensation (vertigo) Weakness in an arm or leg or one side of your face You have trouble talking or seeing [id number] [employer]. [address] [place] [address]. All rights reserved. This information is not intended as a substitute for professional medical care. Always follow your healthcare professional's instructions. Follow Up Care 11/19/2022 16:49:30 With:Your Opthalmologist Address: When:11/20/2022 10:00:00 Comments:Keep your appointment for tomorrow morning with your tire repairer [facility] 11-19-2022 Note Discharge Instructions Thank you for allowing [facility] to assist you with your healthcare needs. The following is important discharge information regarding your hospital visit. Diagnosis from Today's Visit Cephalgia Headache What to Do Next Instructions from Your Care Team No qualifying data available. Post Acute Orders No qualifying data available. You Need to Schedule the Following Appointments Follow Up with Your Opthalmologist When 11/20/2022 10:00 AM EST Why: Keep your appointment for tomorrow morning with your tire repairer Where: Allergies Dilaudid Medications Please ask your primary doctor or pharmacist before taking any other medication not listed, including over the counter drugs, herbal medications, vitamins and or supplements as they may interact with your home medications. Please take this list to your next doctor s visit. Bring all medications you take, including over the counter medications, herbals and other supplements with you to your doctor s visit. Patients and families are reminded to discard old lists and to update any records with all medication providers or retail pharmacies. Education Materials Headache, Unspecified A number of things can cause headaches. The cause of your headache isn t clear. But it doesn t seem to be a sign of any serious illness. Headache affects almost everyone at some time. It is the most common reason people miss days from work or school. You could have a tension headache or a migraine headache. Stress can cause a tension headache. This can happen if you tense the muscles of your shoulders, neck, and scalp without knowing it. If this stress lasts long enough, you may develop a tension headache. It is not clear why migraines occur, but certain things called triggers can raise the risk of having a migraine attack. Migraine triggers may include emotional stress or depression, or by hormone changes during the menstrual cycle. Other triggers include control pills and other medicines, alcohol or caffeine, foods with tyramine (such as aged cheese, wine), eyestrain, weather changes, missed meals, and lack of sleep or oversleeping. Other causes of headache include: Viral illness with high fever Head injury with concussion Sinus, ear, or throat infection Dental pain and jaw joint (TMJ) pain More serious but less common causes of headache include stroke, brain hemorrhage, brain tumor, meningitis, and encephalitis. Home care Follow these tips when taking care of yourself at home: Don t drive yourself home if you were given pain medicine for your headache. Instead, have someone else drive you home. Try to sleep when you get home. You should feel much better when you wake up. Apply heat to the back of your neck to ease a neck muscle spasm. Take care of a migraine headache by putting an ice pack on your forehead or at the base of your skull. If you have nausea or vomiting, eat a light diet until your headache eases. If you have a migraine headache, use sunglasses when in the daylight or around bright indoor lighting until your symptoms get better. Bright glaring light can make this type of headache worse. Follow-up care Follow up with your healthcare provider, or as advised. Talk with your provider if you have frequent headaches. He or she can help figure out a treatment plan. By knowing the earliest signs of headache, and starting treatment right away, you may be able to stop the pain yourself. When to seek medical advice Call your healthcare provider right away if any of these occur: Your head pain suddenly gets worse after sexual intercourse or strenuous activity Your head pain doesn t get better within 24 hours You aren t able to keep liquids down (repeated vomiting) Fever of 100.4 F (38 C) or higher, or as directed by your healthcare provider Stiff neck Extreme drowsiness, confusion, or fainting Dizziness or dizziness with spinning sensation (vertigo) Weakness in an arm or leg or one side of your face You have trouble talking or seeing [id number] [employer]. [address] [place] [address]. All rights reserved. This information is not intended as a substitute for professional medical care. Always follow your healthcare professional's instructions. Additional Information VACCINATE! IT SAVES LIVES! Members of the community who have not yet received the COVID-19 vaccine and would like to receive it can visit one of [facility] vaccine clinics. There are many vaccine clinic locations within the [facility]. For locations and available times, please visit [email or web address] [email or web address] It is important to note that some COVID mobile vaccine clinics are held outdoors and may be canceled in rainy or stormy conditions. To learn more about pediatric vaccinations (ages 5-11), we invite you to visit the [facility] webpage. [email or web address] [email or web address] To learn more about the COVID-19 vaccine, we invite you to visit the CDC website for a list of frequently asked questions. https://www.cdc.gov/coronavirus/ 2019-ncov/vaccines/faq.html [facility] Patient Portal Access Instructions: Stay connected with your healthcare team and access your personal medical information anytime with the [facility] Patient Portal. If you would like a full copy of your medical records please contact the [facility] Medical Records Department Friday through Friday between 8a.m. and 4:30p.m. Please follow the directions below to access the portal: 1.Access the email account you provided upon registration to the hospital.2.Look for an invitation email from [facility].3.Open the email and access the invitation link: Accept Invitation to [facility].Fill in the required sterling to create your account. Sign into [email or web address] with your username and password that you created in the above steps to stay up to date. You can then view a summary of results, a summary of your visits, and the ability to download your summaries to your computer or send the information securely to a physician. Remember that your healthcare information is confidential, so carefully consider who you will allow to register on the [facility] Patient Portal for access to your information. You can also access the [facility] Patient Portal on the [employer]. Simply click on Health Records under Health Data and then click on the [email or web address] logo. HOW TO SAFELY DISPOSE OF PRESCRIPTION MEDICATIONS Please use one of the following methods to safely dispose of your unused medications. 1.Use a drug disposal kit: the drug disposal pouch allows you to safely discard your old and unused drugs. Ask your nurse to give you one when you are discharged.2.Visit a local take-back location: Many local pharmacies and police departments have programs that collect old and unwanted prescription drugs. Call your local pharmacy or go to http://[employer].Knotice/9K3Ii6i to find one close to you.3.Make use of household items: Use cat litter or old coffee grounds to dispose medications if other options are not available. Mix your drugs with these household products, seal them in an airtight container and throw it into the garbage. Call [facility]: [phone] to be sure your drugs can be disposed of in this way. Some medicines may require a different approach.4.Never flush your medications down the toilet. IF YOU HAVE BEEN PRESCRIBED AN OPIOIDS FOR PAIN If you have been prescribed an opioid (such as hydrocodone, oxycodone or morphine), it is critical to understand the possible side effects and risks of opioid pain medications. Even when taken as directed, opioids can have several side effects including: Tolerance, meaning you might need to take more of a medication for the same pain relief. Nausea, vomiting and/or constipation. Sleepiness, dizziness, dry mouth, confusion, depression or itching. Physical dependence, meaning you have withdrawal symptoms when a medication is stopped ? this can develop within a few days. KNOW YOUR RESPONSIBILITIES It is important to know exactly how much and how often to take the opioid pain medications you are prescribed. Never take opioids in higher amounts or more often than prescribed. Do not combine opioids with alcohol or other drugs that cause drowsiness, such as benzodiazepines, also known as benzos, including diazepam and alprazolam, muscle relaxants or sleep aids. Never sell or share prescription opioids. This is illegal. Store opioids in a secure place and out of reach of others (including children, family, friends and visitors). The last page(s) of this document has been signed and retained as a CHART COPY Signatures Patient Education Materials Headache, Unspecified Medication Leaflets My discharge plan and instructions have been reviewed and explained to me and I,LYDIA KERR understand my current condition and have read and understand these discharge instructions. I have received a written copy of the plan/instructions. If I have questions, I am aware that I should contact my doctor. Patient/Facing End Trimmer Signature: Date/Time: Relationship to Patient: Witness Name/Signature: Date/Time: [facility] 11-19-2022 Note ORIGINAL EXAMINATION: CT OF THE HEAD WITHOUT CONTRAST 11/19/2022 6:11 pm TECHNIQUE: CT of the head was performed without the administration of intravenous contrast. Automated exposure control, iterative reconstruction, and/or weight based adjustment of the mA/kV was utilized to reduce the radiation dose to as low as reasonably achievable. COMPARISON: None. HISTORY: ORDERING SYSTEM PROVIDED HISTORY: Reason for Exam: pain FINDINGS: BRAIN/VENTRICLES: There is no acute intracranial hemorrhage, mass effect or midline shift. No abnormal extra-axial fluid collection. The marshall-white differentiation is maintained without evidence of an acute infarct. There is no evidence of hydrocephalus. Partially empty and expanded sella, nonspecific. ORBITS: The visualized portion of the orbits demonstrate no acute abnormality. SINUSES: The visualized paranasal sinuses and mastoid air cells demonstrate no acute abnormality. SOFT TISSUES/SKULL: No acute abnormality of the visualized skull or soft tissues. IMPRESSION: No acute intracranial hemorrhage or acute large vessel territory infarct. Interpreted by: Neeraj Frausto Preliminary Report By: Neeraj Frausto Electronically signed By Neeraj Frausto Dictated Date: 11/19/2022 6:23:15 PM Prelim Date: 11/19/2022 6:24:16 PM Sign Date: 11/19/2022 6:24:16 PM Ordering Provider: KIRBY [facility] 11-19-2022 Note ORIGINAL EXAMINATION: CT OF THE HEAD WITHOUT CONTRAST 11/19/2022 6:11 pm TECHNIQUE: CT of the head was performed without the administration of intravenous contrast. Automated exposure control, iterative reconstruction, and/or weight based adjustment of the mA/kV was utilized to reduce the radiation dose to as low as reasonably achievable. COMPARISON: None. HISTORY: ORDERING SYSTEM PROVIDED HISTORY: Reason for Exam: pain FINDINGS: BRAIN/VENTRICLES: There is no acute intracranial hemorrhage, mass effect or midline shift. No abnormal extra-axial fluid collection. The marshall-white differentiation is maintained without evidence of an acute infarct. There is no evidence of hydrocephalus. Partially empty and expanded sella, nonspecific. ORBITS: The visualized portion of the orbits demonstrate no acute abnormality. SINUSES: The visualized paranasal sinuses and mastoid air cells demonstrate no acute abnormality. SOFT TISSUES/SKULL: No acute abnormality of the visualized skull or soft tissues. IMPRESSION: No acute intracranial hemorrhage or acute large vessel territory infarct. Interpreted by: Neeraj Frausto Preliminary Report By: Neeraj Frausto Electronically signed By Neeraj Frausto Dictated Date: 11/19/2022 6:23:15 PM Prelim Date: 11/19/2022 6:24:16 PM Sign Date: 11/19/2022 6:24:16 PM [facility] Note HNO ID: [id number] Author: Juanita Thomas PA-C Service: ? 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 HPI: Since pt's last visit with us, she has been feeling the same. Currently, she is on Breztri daily and albuterol hfa twice daily. Has been on Breztri for about 5 months, was on Symbicort before. She has nebulized albuterol at home as well, but uses rarely. She currently uses 2L with exertion. She's had two chest infections over the past year. She completed PFTs today and bloodwork. ROS is otherwise unremarkable. Social History Tobacco Use: Never Here today with her daughter PHYSICAL EXAMINATION: BP 122/78 Pulse 63 Temp 97.8 Resp 20 Ht 5' 5.5 (1.66m) Wt 209 lb (94.8kg) SpO2 99% BMI 34.24 kg/(m2). Data Review: I have visually reviewed imaging and testing below. PFT January 22, 2022 Outside PFTs from 2019 were also available today from patient. Reviewed and scanned into chart Assessment and Plan: 1. Chronic obstructive pulmonary disease, unspecified COPD type (HCC) GOLD Classification: GOLD 3 Severe 30% less than or equal to FEV1 < 50% predicted GOLD Risk Group: B 2. Carcinoid tumor of lung, unspecified whether malignant DIPNECH Spirometry was difficult for patient but best attempts recorded. FVC 66% (higher than 2020) FEV1 35% Ratio 41% Midflow rates significantly reduced DLCO 68% (higher than 2020) >Maintain current inhaled therapies >Use oxygen only with exertion 2L NC. Monitor pulse ox at home. Oximetry testing today did not show significant desaturation. Lydia continues to have limiting CONNORS. Advise: >Have echocardiogram >Pulmonary rehabilitation. Pt has connection to [facility]. We re-ordered. >Consider Octreotide Titration We can go up to 60mg per month per NET treatment consensus >Could also consider altering inhaler regminen. I spent a total of 30 minutes on the date of the service which included preparing to see the patient, [id number] patient care, completing clinical documentation, counseling and educating the patient/family/caregiver, ordering medications, tests, or procedures, communicating with other HCPs (not separately reported), independently interpreting results (not separately reported), communicating results to the patient/family/caregiver and care coordination (not separately reported). UPDATe: After discussion with Dr. Petit, small airways disease is likely driven by the DIPNECH Trial increase by 10mg increase to Octreotide depot, then short term follow up to monitor improvement. Could not leave voicemail message. Sent [employer] message. January 23, 2022 ALDA Mariano, MICHELLEC [place] 01-23-2022 History of Presen t illness Narrative Images from the original note were not included. 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 HPI: Since pt's last visit with us, she has been feeling the same. Currently, she is on Breztri daily and albuterol hfa twice daily. Has been on Breztri for about 5 months, was on Symbicort before. She has nebulized albuterol at home as well, but uses rarely. She currently uses 2L with exertion. She's had two chest infections over the past year. She completed PFTs today and bloodwork. ROS is otherwise unremarkable. Social History Tobacco Use: Never Here today with her daughter PHYSICAL EXAMINATION: BP 122/78 Pulse 63 Temp 97.8 Resp 20 Ht 5' 5.5 (1.66m) Wt 209 lb (94.8kg) SpO2 99% BMI 34.24 kg/(m^2). Data Review: I have visually reviewed imaging and testing below. PFT January 22, 2022 Outside PFTs from 2019 were also available today from patient. Reviewed and scanned into chart Assessment and Plan: 1. Chronic obstructive pulmonary disease, unspecified COPD type (HCC) GOLD Classification: GOLD 3 Severe 30% less than or equal to FEV1 < 50% predicted GOLD Risk Group: B 2. Carcinoid tumor of lung, unspecified whether malignant DIPNECH Spirometry was difficult for patient but best attempts recorded. FVC 66% (higher than 2020) FEV1 35% Ratio 41% Midflow rates significantly reduced DLCO 68% (higher than 2020) >Maintain current inhaled therapies >Use oxygen only with exertion 2L NC. Monitor pulse ox at home. Oximetry testing today did not show significant desaturation. Lydia continues to have limiting CONNORS. Advise: >Have echocardiogram >Pulmonary rehabilitation. Pt has connection to [facility]. We re-ordered. >Consider Octreotide Titration We can go up to 60mg per month per NET treatment consensus >Could also consider altering inhaler regminen. I spent a total of 30 minutes on the date of the service which included preparing to see the patient, [id number] patient care, completing clinical documentation, counseling and educating the patient/family/caregiver, ordering medications, tests, or procedures, communicating with other HCPs (not separately reported), independently interpreting results (not separately reported), communicating results to the patient/family/caregiver and care coordination (not separately reported). UPDATe: After discussion with Dr. Petit, small airways disease is likely driven by the DIPNECH Trial increase by 10mg increase to Octreotide depot, then short term follow up to monitor improvement. Could not leave voicemail message. Sent [employer] message. January 23, 2022 ALDA Mariano PA-C documented in this encounter [facility] 01-22-2022 Miscellaneous Notes Patient brought PFT and misc lab test [facility] with her to appointment Scanned and uploaded to patient [employer] Thanks documented in this encounter [facility] 01-22-2022 Instructions Juanita Thomas PA-C - 01/22/2022 2:00 PM EDT >Start Pulmonary Rehabilitation >I'll get back to you with recommendations from our [facility] >Schedule Echocardiogram closer to home documented in this encounter [facility] 01-22-2022 Note HNO ID: [id number] Author: Shilpa Renee RRT Service: ? Author Type: Registered Resp Therapist Type: Procedures Filed: 01/22/2022 10:38 AM Note Text: RESPIRATORY THERAPY OXIMETRY WITH AMBULATION Oximetry with Ambulation Test for This Encounter O2 Device O2 Adapter NC O2 Flow SpO2% HR Activity Ft Walked (ft) Time (min) Avg Speed (MPH) R/A 92 73 Resting R/A 94 84 Walking, usual pace 370 3 1.4 General Information Pulse Oximetry Site Total Time Spent O2 Supply Carrier Walking Assistance/Device Forehead 30 ? None NAME: Shilpa Renee RRT PATIENT NAME: Lydia Kerr DATE: January 22, 2022 TIME: 10:38 AM Comment: pt stated she only has one pace of walking. [place] 01-22-2022 Note HNO ID: [id number] Author: Shilpa Renee RRT Service: ? Author Type: Registered Resp Therapist Type: Progress Notes Filed: 01/22/2022 10:08 AM Note Text: PULM FUNCTION SMARTBLOCK: Provider: Juanita Thomas PA-C Spirometry w/BD: 1 DLCO: 1 LV - Box: 1 Oximetry - Rest: 1 Oximetry - Ambulation: 1 System: [id number] [place] 01-22-2022 Procedure note Associated Order(s): OXIMETRY WITH AMBULATION RESPIRATORY THERAPY OXIMETRY WITH AMBULATION Oximetry with Ambulation Test for This Encounter O2 Device O2 Adapter NC O2 Flow SpO2% HR Activity Ft Walked (ft) Time (min) Avg Speed (MPH) R/A 92 73 Resting R/A 94 84 Walking, usual pace 370 3 1.4 General Information Pulse Oximetry Site Total Time Spent O2 Supply Carrier Walking Assistance/Device Forehead 30 None NAME: Shilpa Renee RRT PATIENT NAME: Lydia Kerr DATE: January 22, 2022 TIME: 10:38 AM Comment: pt stated she only has one pace of walking. documented in this encounter [facility] 01-22-2022 History of Presen t illness Narrative PULM FUNCTION SMARTBLOCK: Provider: Juanita Thomas PA-C Spirometry w/BD: 1 DLCO: 1 LV - Box: 1 Oximetry - Rest: 1 Oximetry - Ambulation: 1 System: [id number] documented in this encounter [facility] 01-11-2022 Note HNO ID: [id number] Author: Juanita Thomas PA-C Service: ? Author Type: Physician Processing Assistant Type: Progress Notes Filed: 01/11/2022 4:44 PM Note Text: Reviewed labwork. 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 Heterozygous individuals with the PI*MZ, PI*SZ, or PI*MS genetic variants are generally not candidates for AAT augmentation, as they are not at increased risk for panacinar emphysema in the absence of smoking. There are a few small emphysematous blebs, the largest in the left lower lobe. She is a never smoker. Await full PFTs. [place] 01-11-2022 History of Presen t illness Narrative Reviewed labwork. 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 Heterozygous individuals with the PI*MZ, PI*SZ, or PI*MS genetic variants are generally not candidates for AAT augmentation, as they are not at increased risk for panacinar emphysema in the absence of smoking. There are a few small emphysematous blebs, the largest in the left lower lobe. She is a never smoker. Await full PFTs. documented in this encounter [facility] 01-04-2022 Miscellaneous Notes Admin received call from [facility], with patient on the phone, the patient forgot about labs yesterday and needs to reschedule, the labs need to be reordered in order for the patient to reschedule them Please reorder labs for [id number] 1 ANTITRYP PHEN/GENOTYPE CBCDIF-CBC + DIFF HEMODYNAMIC ECHOCARDIOGRAM Thanks documented in this encounter [facility] 01-03-2022 Note HNO ID: [id number] Author: Juanita Thomas PA-C Service: ? Author Type: Physician Processing Assistant Type: Progress Notes Filed: 01/08/2022 3:00 PM Note Text: Chief Complaint: Lydia Kerr is a 71 yo woman here for pulmonary consultation re lung function in the setting of DIPNECH. Consult requested by Dr. Kati Kirk MD. History of Present Illness: Lydia Kerr has a significant history of GERD, diverticulitis, seasonal allergies. In 2010, Ms. Kerr underwent RUL wedge resetion of a lung nodule which revealed: well diff carcinoid tumor in greatest dimension, and 2mm or less carcinoid tumorlets. Octreoscan was negative at that time, and Chromogranin A was normal. She reports decades of cough and wheezing. She was started on SubQ sandostatin twice per day She has been treated at [facility] in [place] and underwent octreotide therapy in 2019, now on Sandostatin 20mg then 30mg monthly, with significant improvement in her cough and wheezing. More recently, she presented to [facility] to establish after moving in with her daughter in [place] during the pandemic. She was advised at that visit on 12/17/21 to establish care with pulmonary which prompted this consult. CT Chests have revealed increase to size of nodules over time. Currently, she is on Breztri daily and albuterol hfa twice daily. Has been on Breztri for about 5 months, was on Symbicort before. She has nebulized albuterol at home as well, but uses rarely. 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 She currently uses 2L with exertion. She's had two chest infections over the past year. Her last cardiac work up was while she lived in [place]. She underwent a stress test there couple years ago, no echo. She had a mammo last year Colonoscopy is due Other pulm hx includes: -Alpha I Anti Def PiMZ -Obstructive lung disease PAST MEDICAL HISTORY Diagnosis Date - Bronchitis, chronic (HCC) - Chest wall pain - Hydatidiform mole No past surgical history on file. Medications/Allergies: Reconciled with the patient Other Review of Systems + denotes positive finding Constitutional :No fevers, night sweats or fatigue. Weight is stable. Neuro :Denies syncope, HAYES, seizures, or paresthesias Eyes :No h/o eye inflammation. Denies diplopia ENT :Denies sinusitis, rhinitis, mouth lesions, or hoarseness GI: Denies BM changes, dysphagia or heartburn +occasional diarrhea Endocrine :Denies polydipsia, polyphagia, polyuria Cardio :Denies chest pain, palpitations or PND. Pulm: See HPI :No hematuria, kidney disease or bladder concerns Integumentary :Denies skin rash, flushing, or lesions MSK :Denies arthralgias or swelling. Heme/Lymph :No adenopathy or bruising. 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 Images were loaded onto [employer] images. November 2021- Cluster, string of nodules, aligning with airway in RLL Physical Exam BP 147/80 Pulse 62 Temp 36.6 ?C (97.8 ?F) Resp 20 Ht 167.6 cm (5' 6 ) Wt 96 kg (211 lb 10.3 oz) SpO2 100% BMI 34.16 kg/m? Lydia Kerr is well appearing and not in distress. Seated comfortably on 2L NC. Neuro: Alert and oriented x 3. No obvious focal defect. HE: Head is normocephalic. Conjunctiva white. PERRLA ENT: Oropharynx clear- torus palatine. Nares patent. Neck: No neck or cervical adenopathy. No goiter. Resp: Position is upright. On inspection, there is acc muscle use. On auscultation, there is no wheezing or crackles. Cardio: RRR. S1, S2 clear without murmur. EXT: No clubbing, cyanosis or edema. Derm: Warm. No rashes or lesions present. Impression/ Recommendations 1. Lung nodules/ carcinoid tumor and tumorlets Slow growth. There is a cluster in the RLL within/adjacent to airway that may be exacerbating sx or a target for future resection. Disease is diffuse. 2. Carcinoid tumor of lung, unspecified whether malignant. DIPNECH There is evidence of this diagnosis in prior pathology, on imaging and patient's syndrome. Currently using Depot Sandostatin at 30mg. We discussed how this has improved her cough and wheeze, but she continues to have limiting CONNORS. 3. Chronic obstructive pulmonary disease, unspecified COPD type (HCC) There are outside notes on PFTs revealing severe obstruction. The most recent was in 2019. We need to evaluate her lung function given her dyspnea and need for O2. Complete work up ordered. - LUNG DIFFUSION CAPACITY (DLCO); Future - LUNG VOLUMES; Future - OXIMETRY AT REST; Future - SPIROMETRY WITH DILATOR IF OBSTRUCTED; Future - HEMODYNAMIC ECHOCARDIOGRAM; Future (more content not included)... [place] 01-03-2022 History of Presen t illness Narrative Images from the original note were not included. Chief Complaint: Lydia Kerr is a 71 yo woman here for pulmonary consultation re lung function in the setting of DIPNECH. Consult requested by Dr. Kati Kirk MD. History of Present Illness: Lydia Kerr has a significant history of GERD, diverticulitis, seasonal allergies. In 2010, Ms. Kerr underwent RUL wedge resetion of a lung nodule which revealed: well diff carcinoid tumor in greatest dimension, and 2mm or less carcinoid tumorlets. Octreoscan was negative at that time, and Chromogranin A was normal. She reports decades of cough and wheezing. She was started on SubQ sandostatin twice per day She has been treated at [facility] in [place] and underwent octreotide therapy in 2019, now on Sandostatin 20mg then 30mg monthly, with significant improvement in her cough and wheezing. More recently, she presented to [facility] to establish after moving in with her daughter in [place] during the pandemic. She was advised at that visit on 12/17/21 to establish care with pulmonary which prompted this consult. CT Chests have revealed increase to size of nodules over time. Currently, she is on Breztri daily and albuterol hfa twice daily. Has been on Breztri for about 5 months, was on Symbicort before. She has nebulized albuterol at home as well, but uses rarely. 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 She currently uses 2L with exertion. She's had two chest infections over the past year. Her last cardiac work up was while she lived in [place]. She underwent a stress test there couple years ago, no echo. She had a mammo last year Colonoscopy is due Other pulm hx includes: -Alpha I Anti Def PiMZ -Obstructive lung disease PAST MEDICAL HISTORY Diagnosis Date Bronchitis, chronic (HCC) Chest wall pain Hydatidiform mole No past surgical history on file. Medications/Allergies: Reconciled with the patient Other Review of Systems + denotes positive finding Constitutional :No fevers, night sweats or fatigue. Weight is stable. Neuro :Denies syncope, HAYES, seizures, or paresthesias Eyes :No h/o eye inflammation. Denies diplopia ENT :Denies sinusitis, rhinitis, mouth lesions, or hoarseness GI: Denies BM changes, dysphagia or heartburn +occasional diarrhea Endocrine :Denies polydipsia, polyphagia, polyuria Cardio :Denies chest pain, palpitations or PND. Pulm: See HPI :No hematuria, kidney disease or bladder concerns Integumentary :Denies skin rash, flushing, or lesions MSK :Denies arthralgias or swelling. Heme/Lymph :No adenopathy or bruising. 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 Images were loaded onto [employer] images. November 2021- Cluster, string of nodules, aligning with airway in RLL Physical Exam BP 147/80 Pulse 62 Temp 36.6 C (97.8 F) Resp 20 Ht 167.6 cm (5' 6 ) Wt 96 kg (211 lb 10.3 oz) SpO2 100% BMI 34.16 kg/m Lydia Kerr is well appearing and not in distress. Seated comfortably on 2L NC. Neuro: Alert and oriented x 3. No obvious focal defect. HE: Head is normocephalic. Conjunctiva white. PERRLA ENT: Oropharynx clear- torus palatine. Nares patent. Neck: No neck or cervical adenopathy. No goiter. Resp: Position is upright. On inspection, there is acc muscle use. On auscultation, there is no wheezing or crackles. Cardio: RRR. S1, S2 clear without murmur. EXT: No clubbing, cyanosis or edema. Derm: Warm. No rashes or lesions present. Impression/ Recommendations 1. Lung nodules/ carcinoid tumor and tumorlets Slow growth. There is a cluster in the RLL within/adjacent to airway that may be exacerbating sx or a target for future resection. Disease is diffuse. 2. Carcinoid tumor of lung, unspecified whether malignant. DIPNECH There is evidence of this diagnosis in prior pathology, on imaging and patient's syndrome. Currently using Depot Sandostatin at 30mg. We discussed how this has improved her cough and wheeze, but she continues to have limiting CONNORS. 3. Chronic obstructive pulmonary disease, unspecified COPD type (HCC) There are outside notes on PFTs revealing severe obstruction. The most recent was in 2019. We need to evaluate her lung function given her dyspnea and need for O2. Complete work up ordered. - LUNG DIFFUSION CAPACITY (DLCO); Future - LUNG VOLUMES; Future - OXIMETRY AT REST; Future - SPIROMETRY WITH DILATOR IF OBSTRUCTED; Future - HEMODYNAMIC ECHOCARDIOGRAM; Future - perflutren lipid microspheres 1.3 mL in NaCl (PF) 0.9% 10 mL injection (DEFINITY) - sodium chloride 0.9 % (flush) 10 mL (BD POSIFLUSH) - [id number] BL; Future - ALPHA 1 ANTITRYP PHEN/GENOTYPE; Future - CBC + DIFF; Future 4. Chronic cough So far managed with depot sandostatin. 5. SOB (shortness of breath) Severe SOB with hypoxia is not characterisitic of DIPNECH. Pt has underlying dx of a-1-a deficiency and OLD. Work up to rule in/out other conditions that contribute to SOB. Reviewed plan of care with Wyatt Petit MD. Upon review of CT imaging, there is diffuse small airways disease and carcinoid tumor/nodules. This may account for her hypoxia. We will rule out other causes as described above. I'd like her to return for short term follow up to review all the testing and discuss next steps. I spent a total of 60 minutes on the date of the service which included preparing to see the patient, [id number] patient care, completing clinical documentation, performing a medically appropriate examination, counseling and educating the patient/family/caregiver, ordering medications, tests, or procedures, communicating with other HCPs (not separately reported) and care coordination (not separately reported). Juanita Thomas PA-C, [facility] January 03, 2022 12:42 PM documented in this encounter [facility] 01-02-2022 Note HNO ID: [id number] Author: Krysten Coelho RN Service: ? Author Type: Registered Nurse Type: Progress Notes Filed: 01/02/2022 3:24 PM Note Text: 01/02/22: New to [facility] from [facility] AND [facility] in [place]. [place] 01-02-2022 Note HNO ID: [id number] Author: Krysten Coelho RN Service: ? Author Type: Registered Nurse Type: Progress Notes Filed: 01/03/2022 7:26 AM Note Text: 01/02/22: Case referred from [facility]--initially went to ILD then to PULM per Dionna Mims. Approved by Wallace Thomas for pulm. Spoke w/patient to get previsit hx. [place] pushing films today. Records in [facility]. 01/03/22: Films in [facility]. Sent her address AND driving/parking instructions. New Patient Consult Requests Patient Name: Lydia Kerr Patient : 1950 CHIEF COMPLAINT: Enlarging nodules DIPNECH PREVIOUS CARE/FILMS/RECORDS: [facility] HX: History of Covid: No History of Cancer: Yes, other Lung Carcinoid Resection CANCER PATHOLOGY: Yes--faxing from [facility] MEDICATIONS: - CT: Yes 2021 - PET: Yes 2010 ? PFTs: Yes 2019 - Bronchoscopy: No - BIOPSY: Yes Lung [place] - Thoracic Surgery: Yes - Heme/Onc: Yes [place] - Rad/Onc: No KRYSTEN COELHO RN January 02, 2022 3:00 PM [place] 01-02-2022 History of Presen t illness Narrative Images from the original note were not included. 01/02/22: Case referred from [facility]--initially went to ILD then to PULM per Dionna Mims. Approved by Wallace Thomas for pulm. Spoke w/patient to get previsit hx. [place] pushing films today. Records in [facility]. Sent her address & driving/parking instructions. New Patient Consult Requests Patient Name: Lydia Kerr Patient : 1950 CHIEF COMPLAINT: Enlarging nodules DIPNECH PREVIOUS CARE/FILMS/RECORDS: [facility] HX: History of Covid: No History of Cancer: Yes, other Lung Carcinoid Resection CANCER PATHOLOGY: Yes--faxing from [facility] MEDICATIONS: CT: Yes 2021 PET: Yes 2010 PFTs: Yes 2019 Bronchoscopy: No BIOPSY: Yes Lung [facility] [place] Thoracic Surgery: Yes Heme/Onc: Yes [place] Rad/Onc: No KRYSTEN COELHO RN January 02, 2022 3:00 PM documented in this encounter [facility] 01-02-2022 Miscellaneous Notes Summary: new ILD referral request Patient was referred to us by [facility] oncology department for worsening tumors. Completed intake call but sounds like the patient may need to be seen by our lung cancer providers but checking on this with their team to see their thoughts. Vy Mims RN 01/02/22: Reviewed case w/Hilhimanshu Thomas who agrees pulm should see this patient. I've notified Dionna Langford In ILD. I called rad dept @ [facility]-they are pushing all CT Chest films now; no PET available. I noted that another area of [facility] has requested [place] records that should include lung bx 2010 results. Krysten Coelho, RN [facility] [place] [facility] documented in this encounter [facility] 12-31-2021 Miscellaneous Notes I spoke with patient. Patient was diagnosed originally in 2010 at [facility] in [place], [place] and then went on to be treated at [facility] in [place], [place]. Records requested from both facilities. Yoli Skelton LPN Referral received from [facility] Oncology and was given to Dr. Catherine at end of day for review. Nurse from this office had called patient to see if this was for a second opinion and where her pathology was completed. Yoli Skelton LPN Patient calling in stating she received a call from office. I have update appointment notes and account and start HSPT TUTOR phone note. HSPT TUTOR neuroendocrine tumor of lung external referral ( referral in scan docs) Referred by Dr Kati Kirk Location Pref by patient. documented in this encounter [facility] Evaluation + Plan note No data available for this section [facility] this [facility] Diagnosis Carcinoid tumor of lung, unspecified whether malignant- Primary Lung nodule Solitary pulmonary nodule Chronic obstructive pulmonary disease, unspecified COPD type (HCC) Chronic cough Cough SOB (shortness of breath) Shortness of breath documented in this encounter [facility] note* Diagnosis Chronic obstructive pulmonary disease, unspecified COPD type (HCC) Chronic cough Cough SOB (shortness of breath) Shortness of breath documented in this encounter [facility] note* Diagnosis Chronic obstructive pulmonary disease, unspecified COPD type (HCC) Chronic cough Cough SOB (shortness of breath) Shortness of breath documented in this encounter [facility] note* Diagnosis Chronic obstructive pulmonary disease, unspecified COPD type (HCC) Chronic cough Cough SOB (shortness of breath) Shortness of breath documented in this encounter [facility] note* Diagnosis Chronic obstructive pulmonary disease, unspecified COPD type (HCC)- Primary Chronic respiratory failure with hypoxia (HCC) Chronic respiratory failure documented in this encounter [facility] note* Diagnosis Chronic obstructive pulmonary disease, unspecified COPD type (HCC)- Primary Carcinoid tumor of lung, unspecified whether malignant documented in this encounter [facility] for referral (narrative)* Outpatient Procedure (Routine) - Pending Review Specialty Diagnoses / Procedures Referred By Contac t Referred To Contact [facility] Diagnoses Carcinoid tumor of lung, unspecified whether malignant Chronic obstructive pulmonary disease, unspecified COPD type (HCC) SOB (shortness of breath) Procedures ECHO ECHO TTHRC R-T 2D W/WOM-MODE COMPL SPEC&COLR D Juanita Thomas PA-C [address] [place] [address] [address] [place] [address] Referral ID Status Reason Start Date Expiration Date Visits Requested Visits Authorized [id number] Pending Review Auto-Generat ed Referral 01/04/2022 01/04/[address] [facility] Outpatient Procedure (Routine) - Pending Review Specialty Diagnoses / Procedures Referred By Contac t Referred To Contact [facility] Diagnoses Carcinoid tumor of lung, unspecified whether malignant Chronic obstructive pulmonary disease, unspecified COPD type (HCC) Chronic cough SOB (shortness of breath) Procedures HEMODYNAMIC ECHOCARDIOGRAM ECHO TTHRC R-T 2D W/WOM-MODE COMPL SPEC&COLR D Juanita Thomas PA-C [address] [place] [address] [facility] [place] [address] [place] [address] Referral ID Status Reason Start Date Expiration Date Visits Requested Visits Authorized [id number] Pending Review Auto-Generat ed Referral 01/03/2022 01/03/2023 1 1 * Outpatient Procedure (Routine) - Authorized Specialty Diagnoses / Procedures Referred By Contac t Ref[facility] Diagnoses Chronic obstructive pulmonary disease, unspecified COPD type (HCC) Chronic cough SOB (shortness of breath) Procedures SPIROMETRY WITH DILATOR IF OBSTRUCTED BRNCDILAT RSPSE SPMTRY PRE&POST-BRNCDILAT ADMJuanita Pimentel PA-C [address] [place] [address] [facility] [place] [address] [place] [address] Referral ID Status Reason Start Date Expiration Date Visits Requested Visits Authorized [id number] Authorized Auto-Generat ed Referral 01/03/2022 02/02/2023 1 1 * Outpatient Procedure (Routine) - Authorized Specialty Diagnoses / Procedures Referred By Contac t Referred To [facility] Diagnoses Chronic obstructive pulmonary disease, unspecified COPD type (HCC) Chronic cough SOB (shortness of breath) Procedures OXIMETRY AT REST NONINVASIVE EAR/PULSE OXIMETRY Juanita Luong PA-C [address] [place] [address] [address] Referral ID Status Reason Start Date Expiration Date Visits Requested Visits Authorized [id number] Authorized Auto-Generat ed Referral 01/03/2022 02/02/2023 1 1 * Diagnostic Procedure Only (Routine) - Authorized Specialty Diagnoses / Procedures Referred By Contac t Referred To [facility] Diagnoses Chronic obstructive pulmonary disease, unspecified COPD type (HCC) Chronic cough SOB (shortness of breath) J44.9 R05.3 R06.02 Procedures LUNG VOLUMES PLETHYSMOGRAPHY LUNG VOLUMES W/WO AIRWAY RESIST Juanita Thomas PA-C [address] [place] [address] [address] Referral ID Status Reason Start Date Expiration Date V isits Requested Visits Authorized [id number] Authorized 01/05/2022 09/14/2022 1 1 * Outpatient Procedure (Routine) - Authorized Specialty Diagnoses / Procedures Referred By Contac t Referred [facility] Diagnoses Chronic obstructive pulmonary disease, unspecified COPD type (HCC) Chronic cough SOB (shortness of breath) Procedures LUNG DIFFUSION CAPACITY (DLCO) DIFFUSING CAPACITY Juanita Thomas PA-C [address] [place] [address] [address] Referral ID Status Reason Start Date Expiration Date Visits Requested Visits Authorized [id number] Authorized Auto-Generat ed Referral 01/03/2022 02/02/2023 1 1 [facility] for referral (narrative)* Outpatient Procedure (Routine) - Closed Specialty Diagnoses / Procedures Referred By Contac t Referred To [facility] Diagnoses Chronic obstructive pulmonary disease, unspecified COPD type (HCC) Procedures OXIMETRY WITH AMBULATION NONINVASIVE EAR/PULSE OXIMETRY MULTIPLE DETER Juanita Thomas PA-C [address] [place] [address] [facility] [place] [address] [place] [address] Referral ID Status Reason Start Date Expiration Date V isits Requested Visits Authorized [id number] Closed Auto-Generate d Referral 01/22/2022 09/14/[address] [facility] Summary Purpose Family History No Family History Records FoundNo Family History Records FoundNo Family History Records Found Advance Directives No Advanced Directives Records FoundNo Advanced Directives Records FoundNo Advanced Directives Records Found Additional Source Comments INFORMATION SOURCE (unrecogn ized section and content) DATE CREATED AUTHOR AUTHOR'S ORGANIZ ATION 06/17/2022 [place] DATE CREATED AUTHOR AUTHOR'S ORGANIZ ATION 01/02/2023 [facility] ([place]) Source Comments (unrecognize d section and content) In the event this informatio n is protected by the Federal Confidentiality of Alcohol and Drug Abuse Patient Records regulations: The Federal rules restrict any use of the information to criminally investigate or prosecute any alcohol or drug abuse patient.[facility] the event this information is protected by the Federal Confidentiality of Alcohol and Drug Abuse Patient Records regulations: The Federal rules restrict any use of the information to criminally investigate or prosecute any alcohol or drug abuse patient.[facility] the event this information is protected by the Federal Confidentiality of Alcohol and Drug Abuse Patient Records regulations: The Federal rules restrict any use of the information to criminally investigate or prosecute any alcohol or drug abuse patient.[facility] the event this information is protected by the Federal Confidentiality of Alcohol and Drug Abuse Patient Records regulations: The Federal rules restrict any use of the information to criminally investigate or prosecute any alcohol or drug abuse patient.[facility] the event this information is protected by the Federal Confidentiality of Alcohol and Drug Abuse Patient Records regulations: The Federal rules restrict any use of the information to criminally investigate or prosecute any alcohol or drug abuse patient.[facility] the event this information is protected by the Federal Confidentiality of Alcohol and Drug Abuse Patient Records regulations: The Federal rules restrict any use of the information to criminally investigate or prosecute any alcohol or drug abuse patient.[facility] the event this information is protected by the Federal Confidentiality of Alcohol and Drug Abuse Patient Records regulations: The Federal rules restrict any use of the information to criminally investigate or prosecute any alcohol or drug abuse patient.[facility] the event this information is protected by the Federal Confidentiality of Alcohol and Drug Abuse Patient Records regulations: The Federal rules restrict any use of the information to criminally investigate or prosecute any alcohol or drug abuse patient.[facility] the event this information is protected by the Federal Confidentiality of Alcohol and Drug Abuse Patient Records regulations: The Federal rules restrict any use of the information to criminally investigate or prosecute any alcohol or drug abuse patient.[facility] the event this information is protected by the Federal Confidentiality of Alcohol and Drug Abuse Patient Records regulations: The Federal rules restrict any use of the information to criminally investigate or prosecute any alcohol or drug abuse patient.[facility] the event this information is protected by the Federal Confidentiality of Alcohol and Drug Abuse Patient Records regulations: The Federal rules restrict any use of the information to criminally investigate or prosecute any alcohol or drug abuse patient.[facility] the event this information is protected by the Federal Confidentiality of Alcohol and Drug Abuse Patient Records regulations: The Federal rules restrict any use of the information to criminally investigate or prosecute any alcohol or drug abuse patient.[facility] the event this information is protected by the Federal Confidentiality of Alcohol and Drug Abuse Patient Records regulations: The Federal rules restrict any use of the information to criminally investigate or prosecute any alcohol or drug abuse patient.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 Appointment Reason Comments Consult Specialty Diagnoses / Procedures Referred By Contac t Referred To Contact Pulmonary Disease Diagnoses Lung nodule Procedures CONSULT TO LUNG NODULE CLINIC OFFICE/OUTPATIENT [facility] 60-74 MINUTES Juanita Thomas PA-C [address] [place] [address] Referral ID Status Reason Start Date Expiration Date V isits Requested Visits Authorized [id number] Closed PCP Requested Referral 01/02/2022 01/02/2023 1 1 Reason Comments Spirometry Specialty Diagnoses / Procedures Referred By Contac t Referred [facility] Diagnoses Chronic obstructive pulmonary disease, unspecified COPD type (HCC) Chronic cough SOB (shortness of breath) J44.9 R05.3 R06.02 Procedures LUNG VOLUMES PLETHYSMOGRAPHY LUNG VOLUMES W/WO AIRWAY RESIST Juanita Thomas PA-C [address] [place] [address] [place] [address] Referral ID Status Reason Start Date Expiration Date Visits Re quested Visits Authorized [id number] Closed 01/05/2022 09/14/2022 1 1 Specialty Diagnoses / Procedures Referred By Contac t Referred To [facility] Diagnoses Chronic obstructive pulmonary disease, unspecified COPD type (HCC) Chronic cough SOB (shortness of breath) Procedures LUNG DIFFUSION CAPACITY (DLCO) DIFFUSING CAPACITY Juanita Thomas PA-C [address] [place] [address] [place] [address] Referral ID Status Reason Start Date Expiration Date V isits Requested Visits Authorized [id number] Closed Auto-Generate d Referral 01/03/2022 02/02/2023 1 1 Specialty Diagnoses / Procedures Referred By Contac t Referred To [facility] Diagnoses Chronic obstructive pulmonary disease, unspecified COPD type (HCC) Chronic cough SOB (shortness of breath) Procedures SPIROMETRY WITH DILATOR IF OBSTRUCTED BRNCDILAT RSPSE SPMTRY PRE&POST-BRNCDILAT ADMN Juanita Thomas PA-C [address] [place] [address] [place] [address] Referral ID Status Reason Start Date Expiration Date V isits Requested Visits Authorized [id number] Closed Auto-Generate d Referral 01/03/2022 02/02/2023 1 1 Specialty Diagnoses / Procedures Referred By Contac t Referred [facility] Diagnoses Chronic obstructive pulmonary disease, unspecified COPD type (HCC) Chronic cough SOB (shortness of breath) Procedures OXIMETRY AT REST NONINVASIVE EAR/PULSE OXIMETRY SINGLE DETER Juanita Thomas PA-C [address] [place] [address] [facility] [place] [address] [place] [address] Referral ID Status Reason Start Date Expiration Date V isits Requested Visits Authorized [id number] Closed Auto-Generate d Referral 01/22/2022 09/14/2022 1 1 Reason Comments Received Outside Medical Records PFT, [facility] lab test Reason Comments Recheck Care Teams (unrecognized sec tion and content) Clinical Services Assistant Relationship Specialty Start Date End Date Fco Bell MD [address] [facility] [address] [place] [address] PCP - General Internal Medicine 12/31/21 Reagan Parikh [address] [place] [address] Referring 12/25/21 Clinical Services Assistant Relationship Specialty Start Date End Date Fco Bell MD [address] [facility] [address] [place] [address] PCP - General Internal Medicine 12/31/21 Reagan Parikh [address] [place] [address] Referring 12/25/21 Clinical Services Assistant Relationship Specialty Start Date End Date Fco Bell MD [address] [facility] [address] [place] [address] PCP - General Internal Medicine 12/31/21 Reagan Parikh [address] [place] [address] Referring 12/25/21 Clinical Services Assistant Relationship Specialty Start Date End Date Fco Bell MD [address] [facility] [address] [place] [address] PCP - General Internal Medicine 12/31/21 Reagan Parikh [address] [place] [address] Referring 12/25/21 Clinical Services Assistant Relationship Specialty Start Date End Date Fco Bell MD [address] [facility] [address] [place] [address] PCP - General Internal Medicine 12/31/21 Reagan Parikh [address] [place] [address] Referring 12/25/21 Clinical Services Assistant Relationship Specialty Start Date End Date Fco Bell MD [address] [facility] [address] [place] [address] PCP - General Internal Medicine 12/31/21 Reagan Parikh [address] [place] [address] Referring 12/25/21 Clinical Services Assistant Relationship Specialty Start Date End Date Fco Bell MD [address] [facility] [address] [place] [address] PCP - General Internal Medicine 12/31/21 Reagan Parikh [address] [place] [address] Referring 12/25/21 Clinical Services Assistant Relationship Specialty Start Date End Date Fco Bell MD [address] [facility] [address] [place] [address] PCP - General Internal Medicine 12/31/21 Reagan Parikh [address] [place] [address] Referring 12/25/21 Clinical Services Assistant Relationship Specialty Start Date End Date Fco Bell MD [address] [facility] [address] [place] [address] PCP - General Internal Medicine 12/31/21 Reagan Parikh [address] [place] [address] Referring 12/25/21 Clinical Services Assistant Relationship Specialty Start Date End Date Fco Bell MD [address] [place] [address] [place] [address] PCP - General Internal Medicine 12/31/21 Becky Parikh [address] [place] [address] Referring 12/25/21 Care Team (unrecognized sect ion and content) Care Team Personnel Name: FCO BELL MD Member Role: Primary Care Physician Address: Address: [address] [place] [address] [place], [place] [address] Name: Jaylin Davila RN Position: AO RN Member Role: ED RN Name: MD MOSLEY TIMOTHY MD Position: [facility] ED Physician Member Role: ED Physician Address: Address: [address] [place] [id number] FOR RECORDS PERTAINING TO PATIENTS WHO ARE OR HAVE BEEN ENROLLED IN A CHEMICAL DEPENDENCY/SUBSTANCEABUSE PROGRAM, SOME INFORMATION MAY BE OMITTED. This clinical summary was aggregated from multiple sources. Caution should be exercised in using it in the provision of clinical care. This summary normalizes information from multiple sources, and as a consequence, information in this document may materially change the coding, format and clinical context of patient data. In addition, data may be omitted in some cases. CLINICAL DECISIONS SHOULD BE BASED ON THE PRIMARY CLINICAL RECORDS. [facility] [employer] [facility]. provides no warranty or guarantee of the accuracy or completeness of information in this document.
== END | disposition home or self-care (01) ==
LOC: MTRAD 11:56
PROVIDERS: PCP Internal Medicine; Referring Provider Physician Assistant; Visit Provider Physician Assistant
DX: R05.9 Cough, unspecified (principal)
CPT/HCPCS: 71046

== ENCOUNTER → 2023-10-14 | Outpatient (CLI) | payer MEDICARE, MEDICAID, SELFPAY ==
--- NOTE | 2023-10-14 06:55 | CT_ITS ---
STUDY: CT CHEST WITH CONTRAST REASON FOR EXAM: Female, 73 years old. DIPNECH- on sandostatin RADIATION DOSAGE (If Supplied By Facility): CTDIvol = ( 11.10 ) mGy, DLP = ( 436.18 ) mGycm TECHNIQUE: Transaxial imaging was performed following intravenous administration of IV 100mL Isovue-370. Multiplanar coronal and sagittal images were reformatted. Individualized dose optimization techniques were used for this CT. COMPARISON: Comparison is made with prior study dated October 23, 2022. FINDINGS: CHEST Stable small benign-appearing bilateral axillary lymph nodes. Stable 2 mm partially calcified nodule in the left lung apex. Stable partially calcified nodule in the peripheral lateral aspect of the left upper lobe. Evidence of prior surgical intervention in the posterior aspect of the right upper lobe with evidence of postoperative scarring. Mild increased markings at the right lung base suggestive of scarring. There is a 9 mm slightly spiculated nodule in the anterior medial aspect of the left upper lobe. This is unchanged. Stable scattered nodular densities in both lower lobes more prominent in the left lower lobe. This is superimposed on scarring. There is no demonstrated pleural abnormality. Normal heart and pericardium. Normal mediastinum. Normal hilar regions. Normal unenhanced pulmonary arteries. There is atherosclerotic calcification of the aortic arch. There are mild degenerative changes of the thoracic spine. Borderline hepatomegaly. Fatty infiltration of the liver. CT/Chest WITH Contrast IMPRESSION: Stable examination. Electronically Signed: Michael Fleming MD at 9:40 EST ,
--- OUTSIDE RECORDS SUMMARY | 2023-10-14 06:57 | XMS RPT_ITS | CCD ---
Author Name Unknown Address [address] [place] [address] Organization [facility] Care Team Providers Care Weekend Receptionist Name Role Phone KATI KIRK Referring Unavailable OLEGHE, EFEWONGBE B Primary Care Unavailable OLEGHE, EFEWONGBE B Primary Care Unavailable SELF, SELF Referring Unavailable Reagan Parikh Unavailable Fco Bell MD Primary Care Provider [phone] JAIDAE EFEWONGBE B Primary Care Unavailable THOMAS, [...] FCO BELL MD Primary Care Physician [phone] DIMITRI KEANE, DR ORR Attending UnavailFCO Kim MD Primary Care Unavailab le Allergies Allergy Classification Reported Allergen(s) Allergy Type Date of Onset Reaction(s) Facility (4 sources) HYDROmorphone; Translations: [HYDROMORPHONE HCL] Drug Allergy 01-22-2022 Unknown [facility] (1 source) HYDROmorphone; Translations: [hydromorphone] Drug Allergy [facility] Medications Current Medications Medication Drug Class(es) [...] Non-Invasive [address] KIRBY MOSLEY MD [facility] 11-19-2022 18:25-0500 Heart rate 79 /min DR KIRBY MOSLEY MD [facility] 11-19-2022 18:25-0500 Respiratory rate 18 /min DR KIRBY MOSLEY MD [facility] 11-19-2022 18:25-0500 Systolic Blood Pressure Non-Invasive [address] KIRBY MOSLEY MD [facility] 11-19-2022 17:19-0500 Body temperature 97.7 [degF] DR KIRBY MOSLEY MD [facility] 11-19-2022 17:19-0500 Body weight 95.[address] KIRBY MOSLEY MD [facility] 11-19-2022 17:19-0500 Diastolic Blood Pressure Non-Invasive [address] KIRBY MOSLEY MD [facility] 11-19-2022 17:19-0500 Heart rate 80 /min DR KIRBY MOSLEY MD [facility] 11-19-2022 17:19-0500 Respiratory rate 20 /min DR KIRBY MOSLEY MD [facility] 11-19-2022 17:19-0500 Systolic Blood Pressure Non-Invasive [address] KIRBY MOSLEY MD [facility] 01-22-2022 13:43-0400 Body height 166.4 cm Juanita Thomas PA-C Work Phone: [facility] 01-22-2022 13:43-0400 Body temperature 97.81 [degF] Juanita Thomas PA-C Work Phone: [facility] 01-22-2022 13:43-0400 Body weight 94.8 kg Juanita Thomas PA-C Work Phone: [facility] 01-22-2022 13:43-0400 Diastolic blood pressure 78 mm[Hg] Juanita Thomas PA-C Work Phone: [facility] 01-22-2022 13:43-0400 Heart rate 63 /min Juanita Thomas PA-C Work Phone: [facility] 01-22-2022 13:43-0400 Respiratory rate 20 /min Juanita Thomas PA-C Work Phone: [facility] 01-22-2022 13:43-0400 SaO2% (BldA) [Mass fraction] 99 % Juanita Thomas PA-C Work Phone: [facility] 01-22-2022 13:43-0400 Systolic blood pressure 122 mm[Hg] Juanita Thomas PA-C Work Phone: [facility] 01-03-2022 14:20-0400 Body height 167.6 cm Juanita Thomas PA-C Work Phone: [facility] 01-03-2022 14:20-0400 Body temperature 97.81 [degF] Juanita Thomas PA-C Work Phone: [facility] 01-03-2022 14:20-0400 Body weight 96 kg Juanita Thomas PA-C Work Phone: [facility] 01-03-2022 14:20-0400 Diastolic blood pressure 80 mm[Hg] Juanita Thomas PA-C Work Phone: [facility] 01-03-2022 14:20-0400 Heart rate 62 /min Juanita Thomas PA-C Work Phone: [facility] 01-03-2022 14:20-0400 Respiratory rate 20 /min Juanita Thomas PA-C Work Phone: [facility] 01-03-2022 14:20-0400 SaO2% (BldA) [Mass fraction] 100 % Juanita Thomas PA-C Work Phone: [facility] 01-03-2022 14:20-0400 Systolic blood pressure 147 mm[Hg] Juanita Thomas PA-C Work Phone: [facility] Encounters Encounter Date Encounter Type Care Provider Facility Start: 11-19-2022 End: 11-19-2022 Emergency department patient visit DR KIRBY MOSLEY MD Facility:B Start: 11-19-2022 End: 11-19-2022 Emergency department patient visit DR KIRBY MOSLEY MD [facility] Start: 01-25-2022 End: 01-25-2022 ambulatory JUANITA THOMAS Facility:[facility] Start: 01-22-2022 End: 01-22-2022 ambulatory Pulm Fct Lab Main 11 Other Phone: Pulmonary Medicine Procedures Date Procedure Procedure Detail Performing Clinician Start: 01-22-2022 Noninvasive ear/puls e oximetry multiple deter Juanita Thomas PA-C Work Phone: Start: 01-22-2022 Co diffusing capacity H crystal Thomas PA-C Work Phone: Plan of Treatment Date Care Activity Detail Author Start: 05-16-2022 Influenza vaccination INFLUENZ A (Season Ended) [facility] Start: 01-04-2022 End: 03-06-2022 ALPHA 1 ANTITRYP PHEN/GENOTYPE ALPHA 1 ANTITRYP PHEN/GENOTYPE Lab Routine Carcinoid tumor of lung, unspecified whether malignant Chronic obstructive pulmonary disease, unspecified COPD type (HCC) SOB (shortness of breath) Expected: 01/04/2022, Expires: 03/06/2022 [facility] Work Phone: Immunizations Immunization Date Immunization Notes Care Provider Fa cility 06-15-2021 COVID-19 vaccine, ag e 12+ yr (PFIZER-BIONTECH - PURPLE TOP) Juanita Thomas PA-C Work Phone: [facility] 12-15-2020 COVID-19 vaccine, ag e 12+ yr (PFIZER-BIONTECH - PURPLE TOP) Juanita Thomas PA-C Work Phone: [facility] 11-24-2020 COVID-19 vaccine, ag e 12+ yr (PFIZER-BIONTECH - PURPLE TOP) Juanita Thomas PA-C Work Phone: [facility] Payers Date Payer Category Payer Private Health Insurance [id number] 2021 Medicare [id number] 2021 Medicare [employer] [id number] 2021-Present [phone] [address] [place] [address] Medicare [id number] 1950 Unknown [id number] 1950 Unknown [id number] 1950 Unknown [id number] Social History Date Type Detail Facility Tobacco smoking status DEIS Tobacco smoking consumption unknown [facility] Start: 1950 Sex Assigned At Not on file C [facility] Start: 01-02-2022 Tobacco smoking status [facility] Never smoked tobacco [facility] Start: 12-23-2021 End: 01-23-2022 Exposure to SARS-CoV-2 (event) Not sure [facility] Start: 01-02-2022 Tobacco use and exposure Smokeless tobacco non-user [facility] Start: 01-03-2022 End: 02-07-2022 Alcohol intake Ex-drinker (finding) [facility] Tobacco smoking status No Smoking Status Entered [facility] Sex Assigned At Female [facility] Functional Status Date Assessment Result Facility 11-19-2022 Functional Status Independent [facility]ato [facility] 11-19-2022 Functional Status Standard Safet y ID band on, Allergy Band on, Call device within reach, Bed in low position, Wheels locked, Safety level maintained [facility] Mental Status Date Assessment Result Facility 03-07-2023 Mental Status Orientation Oriented x 4 [facility] 11-19-2022 Mental Status [facility] Clinical Notes 12-31-2021 to 11-19-2022 Juanita Thomas PA-C - 01/23/2022 3:30 PM EDTTelephone Encounter - Asia Benson - 01/22/2022 3:09 PM EDTPatient Instructionscrescencio Renee, CAREER TECHNICAL COUNSELOR - 01/22/2022 10:38 AM EDT Note Date [...] face You have trouble talking or seeing [phone] [employer]. [address] [place] [address]. All rights reserved. This information is not intended as a substitute for professional medical care. Always follow your healthcare professional's instructions. Follow Up Care 11/19/2022 16:49:30 With:Your Opthalmologist Address: When:11/20/2022 10:00:00 Comments:Keep your appointment for tomorrow morning with your sales relationship manager [facility] 11-19-2022 Note Discharge Instructions Thank you for allowing [facility] to assist you with your healthcare needs. [...] your appointment for tomorrow morning with your sales relationship manager Where: Allergies Dilaudid Medications Please ask your [...] face You have trouble talking or seeing [phone] [employer]. [address] [place] [address]. All rights reserved. This information is not intended as a substitute for professional medical care. Always follow your healthcare professional's instructions. Additional Information VACCINATE! IT SAVES LIVES! Members of the community who have not yet received the COVID-19 vaccine and would like to receive it can visit one of [facility] vaccine clinics. There are many vaccine clinic locations within the [facility]. For locations and available times, please visit [email or web address] [email or web address] It is important to note that some COVID mobile vaccine clinics are held outdoors and may be canceled in rainy or stormy conditions. To learn more about pediatric vaccinations (ages 5-11), we invite you to visit the [facility] webpage. [email or web address] [email or web address]-Lnsuk-[email or web address]-Freq [email or web address]-[email or web address] To learn more about the COVID-19 vaccine, we invite you to visit the CDC website for a list of frequently asked questions. https://www.cdc.gov/coronavirus/ 2019-ncov/vaccines/faq.html [facility] Patient Portal Access Instructions: Stay connected with your healthcare team and access your personal medical information anytime with the [facility] Patient Portal. If you would like a full copy of your medical records please contact the [facility] Medical Records Department Friday through Friday between 8a.m. and 4:30p.m. Please follow the directions below to access the portal: 1.Access the email account you provided upon registration to the hospital.2.Look for an invitation email from [facility].3.Open the email and access the invitation link: Accept Invitation to [facility].Fill in the required sterling to create your [...] you will allow to register on the [facility] Patient Portal for access to your information. You can also access the [facility] Patient Portal on the [employer]. Simply click on Health Records under Health Data and then click on the [employer] logo. HOW TO SAFELY DISPOSE OF PRESCRIPTION [...] Call your local pharmacy or go to [email or web address].bCODE/[email or web address] to find one close to you.3.Make use of household items: Use cat litter or old coffee grounds to dispose medications if other options are not available. Mix your drugs with these household products, seal them in an airtight container and throw it into the garbage. Call [facility]: [phone] to be sure your drugs can be [...] aware that I should contact my doctor. Patient/Manager Card Signature: Date/Time: Relationship to Patient: Witness Name/Signature: Date/Time: [facility] 11-19-2022 Note ORIGINAL EXAMINATION: CT OF [...] Date: 11/19/2022 6:24:16 PM Ordering Provider: KIRBY [facility] 11-19-2022 Note ORIGINAL EXAMINATION: CT OF [...] Date: 11/19/2022 6:24:16 PM [facility] HNO ID: [id number] Author: Juanita Thomsa PA-C Service: ? 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 Pt has connection to [facility]. We re-ordered. >Consider Octreotide Titration We can go up to 60mg per month per NET treatment consensus >Could also consider altering inhaler regminen. I spent a total of 30 minutes on the date of the service which included preparing to see the patient, [id number] patient care, completing clinical documentation, counseling and [...] improvement. Could not leave voicemail message. Sent [employer] message. January 23, 2022 ALDA Mariano, MICHELLEC [facility] 01-23-2022 History of Presen t illness Narrative Images from the original note were not included. 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 Pt has connection to [facility]. We re-ordered. >Consider Octreotide Titration We can go up to 60mg per month per NET treatment consensus >Could also consider altering inhaler regminen. I spent a total of 30 minutes on the date of the service which included preparing to see the patient, [id number] patient care, completing clinical documentation, counseling and [...] improvement. Could not leave voicemail message. Sent [employer] message. January 23, 2022 ALDA Mariano PA-C documented in this encounter [facility] 01-22-2022 Miscellaneous Notes Patient brought PFT and misc lab test [facility] with her to appointment Scanned and uploaded to patient [employer] Thanks documented in this encounter [facility] 01-22-2022 Instructions Juanita Thomas PA-C - 01/22/2022 2:00 PM EDT >Start Pulmonary Rehabilitation >I'll get back to you with recommendations from our [facility] >Schedule Echocardiogram closer to home documented in this encounter [facility] 01-22-2022 Note HNO ID: [id number] Author: Shilpa Renee RRT Service: ? Author [...] she only has one pace of walking. [facility] 01-22-2022 Note HNO ID: [id number] Author: Shilpa Renee RRT Service: ? Author Type: Registered Resp Therapist Type: Progress Notes Filed: 01/22/2022 10:08 AM Note Text: PULM FUNCTION SMARTBLOCK: Provider: Juanita Thomas PA-C Spirometry w/BD: 1 DLCO: 1 LV - Box: 1 Oximetry - Rest: 1 Oximetry - Ambulation: 1 System: [id number] [facility] 01-22-2022 Procedure note Associated Order(s): OXIMETRY WITH [...] pace of walking. documented in this encounter [facility] 01-22-2022 History of Presen t illness Narrative PULM FUNCTION SMARTBLOCK: Provider: Juanita Thomas PA-C Spirometry w/BD: 1 DLCO: 1 LV - Box: 1 Oximetry - Rest: 1 Oximetry - Ambulation: 1 System: [id number] documented in this encounter [facility] 01-11-2022 Note HNO ID: [id number] Author: Juanita Thomas PA-C Service: ? Author Type: Physician Client Engagement Specialist Type: Progress Notes Filed: 01/11/2022 4:44 PM [...] is a never smoker. Await full PFTs. [facility] 01-11-2022 History of Presen t illness Narrative [...] Await full PFTs. documented in this encounter [facility] 01-04-2022 Miscellaneous Notes Admin received call from [facility], with patient on the phone, the patient forgot about labs yesterday and needs to reschedule, the labs need to be reordered in order for the patient to reschedule them Please reorder labs for [id number] ANTITRYP PHEN/GENOTYPE CBCDIF-CBC + DIFF HEMODYNAMIC ECHOCARDIOGRAM Thanks documented in this encounter [facility] 01-03-2022 Note HNO ID: [id number] Author: Juanita Thomas PA-C Service: ? Author Type: Physician Client Engagement Specialist Type: Progress Notes Filed: 01/08/2022 3:00 PM [...] per day She has been treated at [facility] in [place] and underwent octreotide therapy in 2019, now on Sandostatin 20mg then 30mg monthly, with significant improvement in her cough and wheezing. More recently, she presented to [facility] to establish after moving in with her daughter in [place] during the pandemic. She was advised at [...] at home as well, but uses rarely. 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 She currently uses 2L with exertion. She's had two chest infections over the past year. Her last cardiac work up was while she lived in [place]. She underwent a stress test there couple [...] records were reviewed. Images were loaded onto [employer] images. November 2021- Cluster, string of nodules, [...] HEMODYNAMIC ECHOCARDIOGRAM; Future (more content not included)... [facility] 01-03-2022 History of Presen t illness Narrative [...] per day She has been treated at [facility] in [place] and underwent octreotide therapy in 2019, now on Sandostatin 20mg then 30mg monthly, with significant improvement in her cough and wheezing. More recently, she presented to [facility] to establish after moving in with her daughter in [place] during the pandemic. She was advised at [...] at home as well, but uses rarely. 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 She currently uses 2L with exertion. She's had two chest infections over the past year. Her last cardiac work up was while she lived in [place]. She underwent a stress test there couple [...] records were reviewed. Images were loaded onto [employer] images. November 2021- Cluster, string of nodules, [...] % (flush) 10 mL (BD POSIFLUSH) - [id number] BL; Future - ALPHA 1 ANTITRYP PHEN/GENOTYPE; [...] which included preparing to see the patient, [id number] patient care, completing clinical documentation, performing a medically appropriate examination, counseling and educating the patient/family/caregiver, ordering medications, tests, or procedures, communicating with other HCPs (not separately reported) and care coordination (not separately reported). Juanita Thomas PA-C, [facility] January 03, 2022 12:42 PM documented in this encounter [facility] 01-02-2022 Note HNO ID: [id number] Author: Krysten Coelho RN Service: ? Author Type: Registered Nurse Type: Progress Notes Filed: 01/02/2022 3:24 PM Note Text: 01/02/22: New to [facility] from [facility] AND [facility] in [place]. [facility] 01-02-2022 Note HNO ID: [id number] Author: Krysten Coelho RN Service: ? Author Type: Registered Nurse Type: Progress Notes Filed: 01/03/2022 7:26 AM Note Text: 01/02/22: Case referred from [facility]--initially went to ILD then to PULM per Dionna Mims. Approved by Wallace Thomas for pulm. Spoke w/patient to get previsit hx. [place] pushing films today. Records in [facility]. 01/03/22: Films in [facility]. Sent her address AND driving/parking instructions. New Patient Consult Requests Patient Name: Lydia Kerr Patient : 1950 CHIEF COMPLAINT: Enlarging nodules DIPNECH PREVIOUS CARE/FILMS/RECORDS: [facility] HX: History of Covid: No History of Cancer: Yes, other Lung Carcinoid Resection CANCER PATHOLOGY: Yes--faxing from [facility] MEDICATIONS: - CT: Yes 2021 - PET: Yes 2010 ? PFTs: Yes 2019 - Bronchoscopy: No - BIOPSY: Yes Lung [place] - Thoracic Surgery: Yes - Heme/Onc: Yes [facility] - Rad/Onc: No KRYSTEN COELHO RN January 02, 2022 3:00 PM [facility] 01-02-2022 History of Presen t illness Narrative Images from the original note were not included. 01/02/22: Case referred from [facility]--initially went to ILD then to PULM per Dionna Mims. Approved by Wallace Thomas for pulm. Spoke w/patient to get previsit hx. [place] pushing films today. Records in [facility]. Sent her address & driving/parking instructions. New Patient Consult Requests Patient Name: Lydia Kerr Patient : 1950 CHIEF COMPLAINT: Enlarging nodules DIPNECH PREVIOUS CARE/FILMS/RECORDS: [facility] HX: History of Covid: No History of Cancer: Yes, other Lung Carcinoid Resection CANCER PATHOLOGY: Yes--faxing from [facility] MEDICATIONS: CT: Yes 2021 PET: Yes 2010 PFTs: Yes 2019 Bronchoscopy: No BIOPSY: Yes Lung [facility] Thoracic Surgery: Yes Heme/Onc: Yes [facility] Rad/Onc: No KRYSTEN COELHO RN January 02, 2022 3:00 PM documented in this encounter [facility] 01-02-2022 Miscellaneous Notes Summary: new ILD referral request Patient was referred to us by [facility] oncology department for worsening tumors. Completed intake [...] available. I noted that another area of [facility] has requested [place] records that should include lung bx 2010 results. Krysten Coelho, RN Respiratory [facility] documented in this encounter [facility] 12-31-2021 Miscellaneous Notes I spoke with patient. Patient was diagnosed originally in 2010 at [facility] in [place], [place] and then went on to be treated at [facility] in [place], [place]. Records requested from both facilities. Yoli Skelton LPN Referral received from [facility] Oncology and was given to Dr. Catherine at end of day for review. Nurse from this office had called patient to see if this was for a second opinion and where her pathology was completed. Yoli Skelton LPN Patient calling in stating she received a call from office. I have update appointment notes and account and start RETAIL SALES MANAGER phone note. RETAIL SALES MANAGER neuroendocrine tumor of lung external referral ( referral in scan docs) Referred by Dr Kati Kirk Location Pref by patient. documented in this encounter [facility] Evaluation + Plan note No data available for this section [facility] Diagnosis Carcinoid tumor of lung, unspecified whether malignant- Primary Lung nodule Solitary pulmonary nodule Chronic obstructive pulmonary disease, unspecified COPD type (HCC) Chronic cough Cough SOB (shortness of breath) Shortness of breath documented in this encounter [facility] note* Diagnosis Chronic obstructive pulmonary disease, unspecified COPD type (HCC) Chronic cough Cough SOB (shortness of breath) Shortness of breath documented in this encounter [facility] note* Diagnosis Chronic obstructive pulmonary disease, unspecified COPD type (HCC) Chronic cough Cough SOB (shortness of breath) Shortness of breath documented in this encounter [facility] note* Diagnosis Chronic obstructive pulmonary disease, unspecified COPD type (HCC) Chronic cough Cough SOB (shortness of breath) Shortness of breath documented in this encounter [facility] note* Diagnosis Chronic obstructive pulmonary disease, unspecified COPD type (HCC)- Primary Chronic respiratory failure with hypoxia (HCC) Chronic respiratory failure documented in this encounter [facility] note* Diagnosis Chronic obstructive pulmonary disease, unspecified COPD type (HCC)- Primary Carcinoid tumor of lung, unspecified whether malignant documented in this encounter [facility] for referral (narrative)* Outpatient Procedure (Routine) - Pending Review Specialty Diagnoses / Procedures Referred By Contac t Referred To Contact [facility] Diagnoses Carcinoid tumor of lung, unspecified whether malignant Chronic obstructive pulmonary disease, unspecified COPD type (HCC) SOB (shortness of breath) Procedures ECHO ECHO TTHRC R-T 2D W/WOM-MODE COMPL SPEC&COLR D Juanita Thomas PA-C [address] [place] [address] [address] [address] [place] [address] Referral ID Status Reason Start Date Expiration Date Visits Requested Visits Authorized [id number] Pending Review Auto-Generat ed Referral 01/04/2022 01/04/2023 1 1 [facility] Outpatient Procedure (Routine) - Pending Review Specialty Diagnoses / Procedures Referred By Contac t Referred To Contact [facility] Diagnoses Carcinoid tumor of lung, unspecified whether malignant Chronic obstructive pulmonary disease, unspecified COPD type (HCC) Chronic cough SOB (shortness of breath) Procedures HEMODYNAMIC ECHOCARDIOGRAM ECHO TTHRC R-T 2D W/WOM-MODE COMPL SPEC&COLR D Juanita Thomas PA-C [address] [place] [address] [facility] [address] [place] [address] Referral ID Status Reason Start Date Expiration Date Visits Requested Visits Authorized [id number] Pending Review Auto-Generat ed Referral 01/03/2022 01/03/2023 1 1 * Outpatient Procedure (Routine) - Authorized Specialty Diagnoses / Procedures Referred By Contac t [facility] Diagnoses Chronic obstructive pulmonary disease, unspecified COPD type (HCC) Chronic cough SOB (shortness of breath) Procedures SPIROMETRY WITH DILATOR IF OBSTRUCTED BRNCDILAT RSPSE SPMTRY PRE&POST-BRNCDILAT ADMJuanita Pimentel PA-C [address] [place] [address] [facility] [address] [place] [address] Referral ID Status Reason Start Date Expiration Date Visits Requested Visits Authorized [id number] Authorized Auto-Generat ed Referral 01/03/2022 02/02/2023 1 1 * Outpatient Procedure (Routine) - Authorized Specialty Diagnoses / Procedures Referred By Contac t Referred To [facility] Diagnoses Chronic obstructive pulmonary disease, unspecified COPD type (HCC) Chronic cough SOB (shortness of breath) Procedures OXIMETRY AT REST NONINVASIVE EAR/PULSE OXIMETRY Juanita Luong PA-C [address] [place] [address] [address] Referral ID Status Reason Start Date Expiration Date Visits Requested Visits Authorized [id number] Authorized Auto-Generat ed Referral 01/03/2022 02/02/2023 1 1 * Diagnostic Procedure Only (Routine) - Authorized Specialty Diagnoses / Procedures Referred By Contac t Referred To Contact [facility] [place] Diagnoses Chronic obstructive pulmonary disease, unspecified COPD type (HCC) Chronic cough SOB (shortness of breath) J44.9 R05.3 R06.02 Procedures LUNG VOLUMES PLETHYSMOGRAPHY LUNG VOLUMES W/WO AIRWAY RESIST Juanita Thomas PA-C [address] [place] [address] [address] Referral ID Status Reason Start Date Expiration Date V isits Requested Visits Authorized [id number] Authorized 01/05/2022 09/14/2022 1 1 * Outpatient Procedure (Routine) - Authorized Specialty Diagnoses / Procedures Referred By Contac t Referred [facility] Diagnoses Chronic obstructive pulmonary disease, unspecified COPD type (HCC) Chronic cough SOB (shortness of breath) Procedures LUNG DIFFUSION CAPACITY (DLCO) DIFFUSING CAPACITY Juanita Thoams PA-C [address] [place] [address] [address] Referral ID Status Reason Start Date Expiration Date Visits Requested Visits Authorized [id number] Authorized Auto-Generat ed Referral 01/03/2022 02/02/2023 1 1 [facility] for referral (narrative)* Outpatient Procedure (Routine) - Closed Specialty Diagnoses / Procedures Referred By Contac t Referred To Contact [facility] [place] Diagnoses Chronic obstructive pulmonary disease, unspecified COPD type (HCC) Procedures OXIMETRY WITH AMBULATION NONINVASIVE EAR/PULSE OXIMETRY MULTIPLE DETER Juanita Thomas PA-C [address] [place] [address] [facility] [address] [place] [address] Referral ID Status Reason Start Date Expiration Date V isits Requested Visits Authorized [id number] Closed Auto-Generate d Referral 01/22/2022 09/14/2022 1 1 [facility] Summary Purpose Family History No Family History Records FoundNo Family History Records FoundNo Family History Records Found Advance Directives No Advanced Directives Records FoundNo Advanced Directives Records FoundNo Advanced Directives Records Found Additional Source Comments INFORMATION SOURCE (unrecogn ized section and content) DATE CREATED AUTHOR AUTHOR'S ORGANIZ ATION 06/17/2022 [facility] DATE CREATED AUTHOR AUTHOR'S ORGANIZ ATION 01/02/2023 [facility] ([place]) Source Comments (unrecognize d section and content) In the event this informatio n is protected by the Federal Confidentiality of Alcohol and Drug Abuse Patient Records regulations: The Federal rules restrict any use of the information to criminally investigate or prosecute any alcohol or drug abuse patient.[facility] the event this information is protected by the Federal Confidentiality of Alcohol and Drug Abuse Patient Records regulations: The Federal rules restrict any use of the information to criminally investigate or prosecute any alcohol or drug abuse patient.[facility] the event this information is protected by the Federal Confidentiality of Alcohol and Drug Abuse Patient Records regulations: The Federal rules restrict any use of the information to criminally investigate or prosecute any alcohol or drug abuse patient.[facility] the event this information is protected by the Federal Confidentiality of Alcohol and Drug Abuse Patient Records regulations: The Federal rules restrict any use of the information to criminally investigate or prosecute any alcohol or drug abuse patient.[facility] the event this information is protected by the Federal Confidentiality of Alcohol and Drug Abuse Patient Records regulations: The Federal rules restrict any use of the information to criminally investigate or prosecute any alcohol or drug abuse patient.[facility] the event this information is protected by the Federal Confidentiality of Alcohol and Drug Abuse Patient Records regulations: The Federal rules restrict any use of the information to criminally investigate or prosecute any alcohol or drug abuse patient.[facility] the event this information is protected by the Federal Confidentiality of Alcohol and Drug Abuse Patient Records regulations: The Federal rules restrict any use of the information to criminally investigate or prosecute any alcohol or drug abuse patient.[facility] the event this information is protected by the Federal Confidentiality of Alcohol and Drug Abuse Patient Records regulations: The Federal rules restrict any use of the information to criminally investigate or prosecute any alcohol or drug abuse patient.[facility] the event this information is protected by the Federal Confidentiality of Alcohol and Drug Abuse Patient Records regulations: The Federal rules restrict any use of the information to criminally investigate or prosecute any alcohol or drug abuse patient.[facility] the event this information is protected by the Federal Confidentiality of Alcohol and Drug Abuse Patient Records regulations: The Federal rules restrict any use of the information to criminally investigate or prosecute any alcohol or drug abuse patient.[facility] the event this information is protected by the Federal Confidentiality of Alcohol and Drug Abuse Patient Records regulations: The Federal rules restrict any use of the information to criminally investigate or prosecute any alcohol or drug abuse patient.[facility] the event this information is protected by the Federal Confidentiality of Alcohol and Drug Abuse Patient Records regulations: The Federal rules restrict any use of the information to criminally investigate or prosecute any alcohol or drug abuse patient.[facility] the event this information is protected by the Federal Confidentiality of Alcohol and Drug Abuse Patient Records regulations: The Federal rules restrict any use of the information to criminally investigate or prosecute any alcohol or drug abuse patient.[facility] Reason for Visit (unrecogniz ed section and content) 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 Reason Comments Consult Specialty Diagnoses / Procedures Referred By Contac t Referred To Contact Pulmonary Disease Diagnoses Lung nodule Procedures CONSULT TO LUNG NODULE CLINIC OFFICE/OUTPATIENT [facility] 60-74 MINUTES Juanita Thomas PA-C [address] [place] [address] Referral ID Status Reason Start Date Expiration Date V isits Requested Visits Authorized [id number] Closed PCP Requested Referral 01/02/2022 01/02/2023 1 1 Reason Comments Spirometry Specialty Diagnoses / Procedures Referred By Contac t Referred [facility] Diagnoses Chronic obstructive pulmonary disease, unspecified COPD type (HCC) Chronic cough SOB (shortness of breath) J44.9 R05.3 R06.02 Procedures LUNG VOLUMES PLETHYSMOGRAPHY LUNG VOLUMES W/WO AIRWAY RESIST Juanita Thomas PA-C [address] [place] [address] [place] [address] Referral ID Status Reason Start Date Expiration Date Visits Re quested Visits Authorized [id number] Closed 01/05/2022 09/14/2022 1 1 Specialty Diagnoses / Procedures Referred By Contac t Referred To [facility] Diagnoses Chronic obstructive pulmonary disease, unspecified COPD type (HCC) Chronic cough SOB (shortness of breath) Procedures LUNG DIFFUSION CAPACITY (DLCO) DIFFUSING CAPACITY Juanita Thomas PA-C [address] [place] [address] [place] [address] Referral ID Status Reason Start Date Expiration Date V isits Requested Visits Authorized [id number] Closed Auto-Generate d Referral 01/03/2022 02/02/2023 1 1 Specialty Diagnoses / Procedures Referred By Contac t Referred To [facility] Diagnoses Chronic obstructive pulmonary disease, unspecified COPD type (HCC) Chronic cough SOB (shortness of breath) Procedures SPIROMETRY WITH DILATOR IF OBSTRUCTED BRNCDILAT RSPSE SPMTRY PRE&POST-BRNCDILAT ADMN Juanita Thomas PA-C [address] [place] [address] [place] [address] Referral ID Status Reason Start Date Expiration Date V isits Requested Visits Authorized [id number] Closed Auto-Generate d Referral 01/03/2022 02/02/2023 1 1 Specialty Diagnoses / Procedures Referred By Contac t Referred To Contact [facility] Diagnoses Chronic obstructive pulmonary disease, unspecified COPD type (HCC) Chronic cough SOB (shortness of breath) Procedures OXIMETRY AT REST NONINVASIVE EAR/PULSE OXIMETRY SINGLE DETER Juanita Thomas PA-C [address] [place] [address] [facility] [address] [place] [address] Referral ID Status Reason Start Date Expiration Date V isits Requested Visits Authorized [id number] Closed Auto-Generate d Referral 01/22/2022 09/14/2022 1 1 Reason Comments Received Outside Medical Records PFT, [place] lab test Reason Comments Recheck Care Teams (unrecognized sec tion and content) Weekend Receptionist Relationship Specialty Start Date End Date Fco Bell MD [address] [facility] [address] [place] [address] PCP - General Internal Medicine 12/31/21 Reagna Parikh [address] [place] [address] Referring 12/25/21 Weekend Receptionist Relationship Specialty Start Date End Date Fco Bell MD [address] [facility] [address] [place] [address] PCP - General Internal Medicine 12/31/21 Reagan Parikh [address] [place] [address] Referring 12/25/21 Weekend Receptionist Relationship Specialty Start Date End Date Fco Bell MD [address] [facility] [address] [place] [address] PCP - General Internal Medicine 12/31/21 Reagan Parikh [address] [place] [address] Referring 12/25/21 Weekend Receptionist Relationship Specialty Start Date End Date Fco Bell MD [address] [facility] [address] [place] [address] PCP - General Internal Medicine 12/31/21 Reagan Parikh [address] [place] [address] Referring 12/25/21 Weekend Receptionist Relationship Specialty Start Date End Date Fco Bell MD [address] [facility] [address] [place] [address] PCP - General Internal Medicine 12/31/21 Reagan Parikh [address] [place] [address] Referring 12/25/21 Weekend Receptionist Relationship Specialty Start Date End Date Fco Bell MD [address] [facility] [address] [place] [address] PCP - General Internal Medicine 12/31/21 Reagan Parikh [address] [place] [address] Referring 12/25/21 Weekend Receptionist Relationship Specialty Start Date End Date Fco Bell MD [address] [facility] [address] [place] [address] PCP - General Internal Medicine 12/31/21 Reagan Parikh [address] [place] [address] Referring 12/25/21 Weekend Receptionist Relationship Specialty Start Date End Date Fco Bell MD [address] [facility] [address] [place] [address] PCP - General Internal Medicine 12/31/21 Reagan Parikh [address] [place] [address] Referring 12/25/21 Weekend Receptionist Relationship Specialty Start Date End Date Fco Bell MD [address] [facility] [address] [place] [address] PCP - General Internal Medicine 12/31/21 Reagan Parikh [address] [place] [address] Referring 12/25/21 Weekend Receptionist Relationship Specialty Start Date End Date Fco Bell MD [address] [place] [address] PCP - General Internal Medicine 12/31/21 Becky Parikh [address] [place] [address] Referring 12/25/21 Care Team (unrecognized sect ion and content) Care Team Personnel Name: FCO BELL MD Member Role: Primary Care Physician Address: Address: [address] [place] [address] [address] [place], [place] [address] Name: Jaylin Davila RN Position: AO RN Member Role: ED RN Name: MD MOSLEY TIMOTHY MD Position: [facility] ED Physician Member Role: ED Physician Address: Address: [address] [place] [id number] FOR RECORDS PERTAINING TO PATIENTS [...] BE BASED ON THE PRIMARY CLINICAL RECORDS. [facility] [employer] [facility]. provides no warranty or guarantee of the accuracy or completeness of information in this document.
== END | disposition home or self-care (01) ==
LOC: CT 06:55
PROVIDERS: PCP Internal Medicine; Referring Provider Nurse Practitioner Family; Visit Provider Nurse Practitioner Family
DX: J98.4 Other disorders of lung (principal)
CPT/HCPCS: 71260; Q9967

== ENCOUNTER 2024-04-17 11:57 | Inpatient (IN) | payer MEDICARE, MEDICAID, SELFPAY ==
[2024-04-17] VITALS (8 sets, daily range): BP systolic 137–158; BP diastolic 65–98; PULSE 73–90; RESP 16–19; TEMP 36.2–36.9; O2SAT 92–99; BMI 30.7
--- NOTE | 2024-04-17 12:27 | CT_ITS ---
EXAM: CT ABDOMEN AND PELVIS WITH INTRAVENOUS CONTRAST CLINICAL INDICATION: abdominal pain TECHNIQUE: Helically acquired images were obtained of the abdomen and pelvis with intravenous contrast. This CT exam was performed using one or more of the following dose reduction techniques: automated exposure control, adjustment of the mA and/or kV according to patient size, and/or use of iterative reconstruction technique. CONTRAST: IV 100mL Isovue-370 COMPARISON: CT chest 10/14/2023 FINDINGS: LOWER THORAX: Multiple bilateral pulmonary nodules are again seen not significantly changed from prior exam. ABDOMEN: LIVER: Normal. Homogeneous. No focal mass. GALLBLADDER AND BILE DUCTS: Cholecystectomy clips are in place. No intra- or extrahepatic biliary ductal dilation. PANCREAS: Normal. No focal cystic or solid mass. SPLEEN: Normal. Normal size without focal cystic or solid mass. ADRENALS: Normal. No nodules. KIDNEYS AND URETERS: Small bilateral parapelvic renal cysts. No specific follow-up indicated. No hydronephrosis. STOMACH AND BOWEL: Wall thickening of the sigmoid colon noted associated with adjacent fat stranding consistent with acute diverticulitis. Question 14 mm intramural abscess. No evidence of perforation. Recommend follow-up endoscopy following the acute phase. PELVIS: APPENDIX: Surgical clips at the base of the cecum consistent with appendectomy. BLADDER: Urinary bladder is contracted. REPRODUCTIVE: Hysterectomy noted. ABDOMEN and PELVIS: INTRAPERITONEAL SPACE: Normal. No ascites or other fluid collection. No free air. BONES/JOINTS: Dated prosthesis in place. SOFT TISSUES: Normal. No discrete abdominal or pelvic wall hernia. VASCULATURE: Normal. Abdominal aorta is non-dilated. LYMPH NODES: Normal. No enlarged lymph nodes. CT/Abdomen/Pelvis W IV Cont ONLY IMPRESSION: 1. Persistent multiple bilateral pulmonary nodules suggestive of metastatic disease. 2. Acute sigmoid diverticulitis with suggestion of a 14 mm intramural abscess. Follow-up endoscopy following the acute phase recommended. Electronically Signed: Kody Oliveira MD at 15:13 EDT ,
--- NOTE | 2024-04-17 12:29 | EDS_ITS ---
HPI HPI - GI History of Present Illness Chief Complaint: Abd Pain Detail of Chief Complaint: Abdominal pain Informant: patient Narrative Narrative: Patient presents to the emergency department with complaint of abdominal pain that she has had for the last 2 months. Patient states that she was in [place] 2 months ago and went to an emergency department where they told her that her sigmoid was inflamed and started on amoxicillin. She thinks that maybe she got a little bit better but then the pain came back and it has been there every day. She has pain every time she eats or has a bowel movement or urinates. She denies any fevers or chills or sweats. She does describe some urinary frequency. Patient does have history of diverticulosis. Patient has had prior appendectomy as well as hysterectomy and cholecystectomy. [facility] Medical History Left shoulder pain Dislocation of left shoulder joint Palpitations Subcutaneous nodule of right lower leg Screening for breast cancer Type 2 diabetes mellitus Preoperative evaluation to rule out surgical contraindication Tremor Essential tremor Localized swelling of chest wall Chest wall pain Change in skin mole Chronic diarrhea Diverticulosis GERD (gastroesophageal reflux disease) Diffuse idiopathic pulmonary neuroendocrine cell hyperplasia Vitamin deficiency Hypertriglyceridemia GI problem Chronic bronchitis Seasonal allergies Home Medications ?Medication ?Instructions ?Recorded ?Last Taken ?Type blood pressure monitor #1 ea 02/18/20 Unknown Rx octreotide,microspheres 30 mg 30 mg IM Q4W 02/18/20 Unknown History intramuscular susp, extended release (Sandostatin LAR Depot) nebulizers #1 ea 08/01/20 Unknown Rx Disability Placard #1 ea 05/25/21 Unknown Rx baclofen 10 mg tablet 10 mg PO BID PRN muscle spasm #60 07/02/22 Unknown Rx tabs dicyclomine 20 mg tablet 20 mg PO TID #90 tabs 07/02/22 Unknown Rx meloxicam 15 mg tablet 15 mg PO DAILY PRN pain #60 tabs 07/02/22 Unknown Rx mometasone 50 mcg/actuation nasal 2 spray intranasal DAILY #17 grams 07/02/22 Unknown Rx spray blood-glucose meter (Accu-Chek #1 ea 02/20/23 Unknown Rx Guide Glucose Meter) lancets (Accu-Chek Softclix #100 ea 02/20/23 Unknown Rx Lancets) blood sugar diagnostic (Blood #100 ea 04/15/23 Unknown Rx Glucose Test strips) metformin 500 mg tablet,extended 500 mg PO QPM #90 tabs 05/28/23 Unknown Rx release 24hr (osmotic) escitalopram oxalate 20 mg tablet 20 mg PO DAILY #90 tabs 08/27/23 Unknown Rx pantoprazole 40 mg tablet,delayed 40 mg PO DAILY #90 tabs 10/06/23 Unknown Rx release (Protonix) pravastatin 20 mg tablet 20 mg PO QHS #90 tabs 10/06/23 Unknown Rx amlodipine 5 mg tablet See Rx Instructions .Route 02/23/24 Unknown Rx .COMPLEX #90 tabs albuterol sulfate 2.5 mg/3 mL 2.5 mg (3 mL) inhalation Q4H PRN 04/06/24 Unknown Rx (0.083 %) solution for nebulization shortness of breath or wheezing #90 mL albuterol sulfate 90 mcg/actuation 2 puff inhalation Q6H PRN Sob &/Or 04/06/24 Unknown Rx aerosol inhaler (Ventolin HFA) Wheezing #3 ea benzonatate 200 mg capsule 200 mg PO TID PRN cough #20 caps 04/06/24 Unknown Rx budesonide 160 mcg-glycopyr 9 2 inh inhalation BID #3 ea 04/06/24 Unknown Rx mcg-formot 4.8 mcg/actuation HFA inhaler (Breztri Aerosphere) Allergy/AdvReac Type Severity Reaction Status Date / Time hydromorphone (From Dilaudid) Allergy Severe Hallucinati Verified 04/17/24 11:58 ons Family History Brother Diabetes Heart disease Lung cancer Daughter Alcohol abuse Anxiety Father Dementia Mother Enlarged heart Surgical History History of appendectomy History of cholecystectomy History of total hip replacement Hx of oophorectomy Hx of hysterectomy Social History Smoking Status: Never smoker second hand exposure: No alcohol intake: current alcohol intake frequency: a few times a month Alcohol type: wine substance use type: does not use what type of physical activity do you participate in: none nico/taoism: Amish seatbelt use: always do you feel safe at home: Yes ROS ROS ED Review of Systems ROS Unobtainable: other Constitutional Constitutional ED: Reports lethargy; Denies chills, fever(s), sweats or weight loss Eyes Eyes: Denies blurry vision, change in vision or diplopia ENT ENT ED: Denies rhinorrhea or sore throat Cardiovascular Cardiovascular: Denies chest pain, orthopnea or racing heartbeat Respiratory/Chest Respiratory/Chest: Denies cough, dyspnea, dyspnea on exertion, orthopnea or sputum Gastrointestinal Gastrointestinal: Reports abdominal pain and nausea; Denies diarrhea or vomiting Genitourinary Genitourinary ED: Reports urinary frequency; Denies dysuria or hematuria Musculoskeletal Musculoskeletal: Denies arthralgias, back pain, myalgias or neck pain Integumentary Denies abscess, Abrasions or rash Neurologic Neurologic: Denies headache(s) or weakness Psychiatric Psychiatric: Denies anxiety, depression or suicidal thoughts Endocrine Endocrinology: Denies polydipsia, polyphagia or polyuria Hematologic/Lymphatic Hematologic/Lymphatic: Denies easy bleeding, easy bruising or lymphadenopathy Allergic/Immunologic Allergic/Immunologic ED: Denies mouth swelling, tongue swelling or urticaria EXAM Physical Exam Const Vital Signs: 04/17/24 11:58 04/17/24 13:57 04/17/24 14:56 Temperature 97.1 F L 97.8 F Temperature Source Temporal Oral Pulse Rate 90 84 78 Respiratory Rate 16 18 18 Blood Pressure 155/98 H 154/97 H 157/87 H Blood Pressure Mean 117 116 110 Pulse Ox 98 97 98 Oxygen Delivery Method Room Air Room Air Room Air Positive well nourished and well developed General Appearance ED: well developed and NAD HEENT Reports TM's clear and moist mucous membranes normocephalic and atraumatic; Negative for trauma or tenderness Tympanic Membrane ED: Yes TM's clear Eyes PERRL and EOMs intact bilaterally General Eye ED: Negative for pale conjunctiva or scleral icterus Neck no lymphadenopathy, supple and no JVD General: Negative for tenderness Chest Wall inspection of chest normal and palpation of chest normal Chest: Negative for tenderness Resp normal respiratory effort and clear to auscultation bilaterally Effort and Inspection: Negative for respiratory distress or pain with movement Auscultation: Negative for rhonchi, wheezes or diminished lung sounds Cardio regular rate, regular rhythm, S1 normal heart sound, S2 normal heart sound and no murmurs Peripheral Pulses: pulses 2+ throughout GI normal to inspection, nondistended, normoactive bowel sounds, soft to palpation, non-distended and no masses GI Narrative: Patient with diffuse tenderness palpation over the lower abdomen in the right lower quadrant and suprapubic region and left lower quadrant. There is guarding. There is mild rebound. No rigidity noted. Back/Spine no CVA tenderness and no thoracic nor lumbar tenderness Extremity normal to inspection General Extremety ED: Negative for edema General Extremity: Negative for edema Neuro oriented x3, CN's II-XII intact bilaterally, no sensory deficits noted and gait normal Sensorium / Orientation: awake, alert, oriented to person, oriented to place and oriented to time Motor Exam: strength 5/5 throughout and strength abnormal Psych mental status grossly normal Skin no rashes or lesions noted and no wounds MDM MDM MDM Narrative Medical decision making narrative: Patient presents with abdominal pain for 2 months with history of diverticulosis. In the differential would be acute diverticulitis with possible complication such as bowel perforation or abscess. Also in the differential would be UTI or bowel obstruction. I feel bowel obstruction is less likely given her exam. CBC with differential obtained showing a 6.5 with hemoglobin 1 2.2 and platelet count of 294. Chemistries unremarkable. Lactate normal 1.5. Urinalysis normal. CT scan of the abdomen pelvis showed acute diverticulitis of the sigmoid colon with possible intramural abscess. Discussed case with general surgeon on-call Dr. Lim who recommended Zosyn and admission to medicine and she will consult. Will discuss case with hospitalist to evaluate patient for admission. Lab Data Attestation: I reviewed the patient's lab results. Labs: Laboratory Results - last 24 hr 04/17/24 04/17/24 11:35 12:46 WBC 6.5 RBC 4.22 Hgb 12.2 Hct 39.0 MCV 92.4 MCH 28.9 MCHC 31.3 L RDW Std Deviation 47.5 H RDW Coeff of Doe 13.9 Plt Count 294 MPV 8.7 Immature Gran % (Auto) 0.200 Neut % (Auto) 53.9 Lymph % (Auto) 35.9 [place] % (Auto) 7.7 Eos % (Auto) 1.7 Baso % (Auto) 0.6 Absolute Neuts (auto) 3.5 Absolute Lymphs (auto) 2.32 Nucleated RBC % 0 Sodium 141 Potassium 3.9 Chloride 109 H Carbon Dioxide 28.0 Anion Gap 4 L BUN 13 Creatinine 0.80 Estim Creat Clear Calc 69.26 Est GFR (MDRD) Af Amer 90 Est GFR (MDRD) Non-Af 75 BUN/Creatinine Ratio 16.2 Glucose 112 H Lactic Acid 1.6 Calcium 9.7 Urine Color Yellow Urine Clarity Clear Urine pH 7.0 Ur Specific [place] 1.010 Urine Protein Negative Urine Glucose (UA) Normal Urine Ketones Negative Urine Occult Blood 10 H Urine Nitrite Negative Urine Bilirubin Negative Urine Urobilinogen Normal Ur Leukocyte Esterase Negative Urine RBC 0 SEEN Urine WBC 0 SEEN Ur Squamous Epith Cells 0-5 SEEN Urine Bacteria 1+ Urine Mucus 0 SEEN Radiography Diagnostic Testing: Clinical Impression(s) from Imaging Studies Abdomen/Pelvis CT 04/17/24 12:27 IMPRESSION: 1. Persistent multiple bilateral pulmonary nodules suggestive of metastatic disease. 2. Acute sigmoid diverticulitis with suggestion of a 14 mm intramural abscess. Follow-up endoscopy following the acute phase recommended. Electronically Signed: Kody Oliveira MD at 15:13 EDT Reading Location ID and State: [facility] / [place] Tel , Service support , Discharge Plan Triage Chief Complaint: Abd Pain ED Provider: Monica Mesa Dx/Rx/DC Orders Clinical Impression: Abdominal pain, Acute diverticulitis Prescriptions: No Action Sandostatin LAR Depot 30 mg suspension,extended rel recon 30 mg IM Q4W ([facility]) blood pressure monitor Kit See Rx Instructions .ROUTE .MEDSUPPLY Qty: 1 0RF Rx Instructions: Check blood pressure daily for hypertension I10 ([facility]) nebulizers Misc See Rx Instructions .ROUTE .MEDSUPPLY Qty: 1 0RF Rx Instructions: As directed ([facility]) Disability Placard See Rx Instructions .ROUTE .MEDSUPPLY Qty: 1 0RF Rx Instructions: Expires in 5 years meloxicam 15 mg tablet 15 mg PO DAILY PRN (Reason: pain) Qty: 60 0RF baclofen 10 mg tablet 10 mg PO BID PRN (Reason: muscle spasm) Qty: 60 1RF dicyclomine 20 mg tablet 20 mg PO TID Qty: 90 1RF mometasone 50 mcg/actuation spray,non-aerosol 2 spray intranasal DAILY Qty: 17 6RF Rx Instructions: administer into each nostril metformin 500 mg tablet extended release 24hr 500 mg PO QPM Qty: 90 2RF escitalopram oxalate 20 mg tablet 20 mg PO DAILY Qty: 90 3RF albuterol sulfate 2.5 mg /3 mL (0.083 %) solution for nebulization 2.5 mg INHALATION Q4H PRN (Reason: shortness of breath or wheezing) Qty: 90 3RF albuterol sulfate [Ventolin HFA] 90 mcg/actuation HFA aerosol inhaler 2 puff INHALATION Q6H PRN (Reason: Sob &/Or Wheezing) Qty: 3 3RF benzonatate 200 mg capsule 200 mg PO TID PRN (Reason: cough) Qty: 20 0RF Breztri Aerosphere 160-9-4.8 mcg/actuation HFA aerosol inhaler 2 inh inhalation BID Qty: 3 3RF (DME) blood-glucose meter [Accu-Chek Guide Glucose Meter] Misc See Rx Instructions .Route Qty: 1 0RF Rx Instructions: As directed (DME) lancets [Accu-Chek Softclix Lancets] Misc See Rx Instructions .Route Qty: 100 3RF Rx Instructions: As directed (DME) Blood Glucose Test Strip See Rx Instructions .Route Qty: 100 3RF Rx Instructions: Check BID pravastatin 20 mg tablet 20 mg PO QHS Qty: 90 3RF pantoprazole [Protonix] 40 mg tablet,delayed release (DR/EC) 40 mg PO DAILY Qty: 90 3RF amlodipine 5 mg tablet See Rx Instructions .ROUTE .COMPLEX Qty: 90 0RF Dose Instruction: TAKE 1 TABLET BY MOUTH EVERY DAY Rx Instructions: TAKE 1 TABLET BY MOUTH EVERY DAY Primary Care Provider: Fco Bell Referrals: Fco Bell MD [Primary Care Provider] - Print Language: Hebrew Disposition Disposition: Acute Care Hospital [facility]
[2024-04-17] MEDS: Ondansetron 4 MG/2 ML Vial IV ×2 (12:41→20:00)
[2024-04-17] MEDS: Morphine 4 MG/ML Syringe IV (12:41)
[2024-04-17 12:44] LABS: Absolute Lymphocyte Count 2.32 X10^3/uL (0.83-4.51); Absolute Neutrophil Count 3.5 X10^3/uL (2.0-7.7); Basophil# 0.04 X10^3/uL; Basophil% 0.6 % (0-1); Eosinophil# 0.11 X10^3/uL; Eosinophils% 1.7 % (0-5); Hemoglobin 12.2 g/dL (12.0-15.0); Lymphocyte # 2.32 X10^3/ul (0.83-4.51); Lymphocyte % 35.9 % (19-41); Mean Corp Hgb Conc 31.3 g/dL (32-36); Mean Corpuscular Hgb 28.9 pg (27.0-32.0); Mean Corpuscular Volume 92.4 fL (81-99); Mean Platelet Vol. 8.7 fl (6.2-12.0); Monocyte% 7.7 % (0-10); NRBC Flagged by Analyzer 0 % (0-5); Neutrophil # 3.49 X10^3/uL (2.7-7.7); Neutrophil % 53.9 % (47-70); Platelet Count 294 K/mm3 (150-450); RBC Distribution Width CV 13.9 % (11.6-14.6); RBC Distribution Width SD 47.5 fl (35.1-43.9); Red Blood Count 4.22 M/mm3 (4.2-5.4); White Blood Count 6.5 K/mm3 (4.4-11.0)
[2024-04-17 12:49] LABS: Mucous, Urine 0 SEEN /hpf (<or=2+); Red Blood Cells-Urine 0 SEEN /hpf (0-5); White Blood Cells 0 SEEN /hpf (0-5)
[2024-04-17 12:58] LABS: Color, Urine Yellow (Yellow); Glucose, Dipstick Normal (Normal); Ketone-Dipstick Negative (Negative); Leukocyte Esterase-Dipstick Negative /ul (Negative); Nitrite-Dipstick Negative (Negative); Occult Blood-Urine 10 /ul (Negative); Protein-Dipstick Negative (Negative); Urine Bilirubin Dipstick Negative (Negative); Urine Clarity Clear (Clear); Urine Urobilinogen Normal (Normal)
[2024-04-17] MEDS: 0.9% Normal Saline (1000mL) 1,000 ML 125 ML IV ×2 (12:59→21:15)
[2024-04-17 13:04] LABS: Anion Gap 4 (5-15); BUN 13 mg/dL (7-18); BUN/Creat Ratio 16.2 RATIO (10-20); Calcium,Total 9.7 mg/dL (8.5-10.1); Chloride 109 mmol/L (98-107); EST Glomerular Filtration Rate 75 mL/min (>60); Est Glom Filt Rate - Afr Amer 90 mL/min (>60); Estimated Creatinine Clearance 69.26 ml/min; Glucose 112 mg/dL (74-106); Potassium 3.9 mmol/L (3.5-5.1); Sodium Level 141 mmol/L (136-145)
[2024-04-17 13:06] LABS: Bacteria 1+ /hpf (None Seen); Squamous Epithelial Cells - UA 0-5 SEEN /hpf (5-10)
[2024-04-17 13:09] LABS: Lactic Acid 1.6 mmol/L (0.4-1.9)
[2024-04-17] MEDS: Piperacil/Tazobactam 4.5 GM in 0.9% Normal Saline (100mL MB+) 100 ML IV (16:54)
--- NOTE | 2024-04-17 17:09 | NURSING ---
MED SURG BOWLES ABD PAIN, ACUTE DIVERTICULITIS WITH ABSCESS
--- NOTE | 2024-04-17 17:31 | HP.PCM.HOS_ITS ---
HPI - General General Date of Admission: 04/17/24 Date of Service: 04/17/24 Chief Complaint: Abd pain HPI Narrative GURVINDER DONOVAN, is a 73-year-old female with history of type 2 diabetes, GERD, hypertension, COPD presented to [facility] ED 05/14/2024 with abdominal pain for 2 months. Was in [place] 2 months ago went to ED where she was told her sigmoid colon was inflamed and she was given amoxicillin. Initially got some better but pain came back and has been persistent since that time. Has pain every time she is a bowel movement or urinates. CT scan in ED demonstrated acute diverticulitis with possible intramural abscess. ED discussed with surgeon on-call and recommended Zosyn, medical mention, surgery consult so hospitalist contacted for admission. Patient evaluated at bedside and endorses the pain for 2 months with diagnosis of diverticulitis in [place] at that time and some improvement amoxicillin however has been steadily worsening since then, occasionally some chills, has significant pain whenever she eats, defecates, or urinates and feels very nauseous. Has some chronic shortness of breath not different than her baseline, intermittently has had some headaches. No other acute focal complaints. [facility] Medical History (Updated 04/17/24 @ 17:[address] Sandy Hughes MD) Change in skin mole Chest wall pain Chronic bronchitis Chronic diarrhea Diffuse idiopathic pulmonary neuroendocrine cell hyperplasia Dislocation of left shoulder joint Diverticulosis Essential tremor GERD (gastroesophageal reflux disease) GI problem Hypertriglyceridemia Left shoulder pain Localized swelling of chest wall Palpitations Preoperative evaluation to rule out surgical contraindication Screening for breast cancer Seasonal allergies Subcutaneous nodule of right lower leg Tremor Type 2 diabetes mellitus Vitamin deficiency Home Medications ?Medication ?Instructions ?Recorded ?Last Taken ?Type blood pressure monitor #1 ea 02/18/20 Unknown Rx octreotide,microspheres 30 mg 30 mg IM Q4W 02/18/20 Unknown History intramuscular susp, extended release (Sandostatin LAR Depot) nebulizers #1 ea 08/01/20 Unknown Rx Disability Placard #1 ea 05/25/21 Unknown Rx dicyclomine 20 mg tablet 20 mg PO TID #90 tabs 07/02/22 Unknown Rx mometasone 50 mcg/actuation nasal 2 spray intranasal DAILY #17 grams 07/02/22 Unknown Rx spray blood-glucose meter (Accu-Chek #1 ea 02/20/23 Unknown Rx Guide Glucose Meter) lancets (Accu-Chek Softclix #100 ea 02/20/23 Unknown Rx Lancets) blood sugar diagnostic (Blood #100 ea 04/15/23 Unknown Rx Glucose Test strips) metformin 500 mg tablet,extended 500 mg PO QPM #90 tabs 05/28/23 Unknown Rx release 24hr (osmotic) escitalopram oxalate 20 mg tablet 20 mg PO DAILY #90 tabs 08/27/23 Unknown Rx pantoprazole 40 mg tablet,delayed 40 mg PO DAILY #90 tabs 10/06/23 Unknown Rx release (Protonix) amlodipine 5 mg tablet See Rx Instructions .Route 02/23/24 Unknown Rx .COMPLEX #90 tabs albuterol sulfate 2.5 mg/3 mL 2.5 mg (3 mL) inhalation Q4H PRN 04/06/24 Unknown Rx (0.083 %) solution for nebulization shortness of breath or wheezing #90 mL albuterol sulfate 90 mcg/actuation 2 puff inhalation Q6H PRN Sob &/Or 04/06/24 Unknown Rx aerosol inhaler (Ventolin HFA) Wheezing #3 ea budesonide 160 mcg-glycopyr 9 2 inh inhalation BID #3 ea 04/06/24 Unknown Rx mcg-formot 4.8 mcg/actuation HFA inhaler (Breztri Aerosphere) Allergy/AdvReac Type Severity Reaction Status Date / Time hydromorphone (From Dilaudid) Allergy Severe Hallucinati Verified 04/17/24 11:58 ons Family History Brother Diabetes Heart disease Lung cancer Daughter Alcohol abuse Anxiety Father Dementia Mother Enlarged heart Surgical History History of appendectomy History of cholecystectomy History of total hip replacement Hx of hysterectomy Hx of oophorectomy Social History Smoking Status: Never smoker second hand exposure: No alcohol intake: current alcohol intake frequency: a few times a month Alcohol type: wine substance use type: does not use what type of physical activity do you participate in: none nico/yazidi: Synagogue seatbelt use: always do you feel safe at home: Yes ROS ROS Narrative General: Some chills HENT: Occasional headache headache, denies stuffy nose, denies sore throat EYES: Denies changes in vision Resp: Chronic cough and chronic shortness of breath Cardiac: Denies chest pain GI: Abdominal pain that has been worsening and nausea : Denies changes in urination Extremity: Denies swelling MSK: Denies weakness Neuro: Denies any numbness/tingling Heme: Denies any bleeding or bruising Skin: Denies rashes Psychiatric: No complaints voiced Vital Signs Vital Signs Vital Signs: 04/17/24 11:58 04/17/24 13:57 04/17/24 14:56 Temperature 97.1 F L 97.8 F Temperature Source Temporal Oral Pulse Rate 90 84 78 Respiratory Rate 16 18 18 Blood Pressure 155/98 H 154/97 H 157/87 H Blood Pressure Mean 117 116 110 Pulse Ox 98 97 98 Oxygen Delivery Method Room Air Room Air Room Air 04/17/24 16:33 04/17/24 17:00 Temperature 98 F 98.3 F Temperature Source Oral Pulse Rate 77 77 Respiratory Rate 19 H 18 Blood Pressure 156/88 H 158/89 H Blood Pressure Mean 110 112 Pulse Ox 97 98 Oxygen Delivery Method Room Air Weight Weight: 86.183 kg Body Mass Index (BMI) 30.7 Physical Exam Narrative General: Alert, oriented, appears uncomfortable HEENT: Atraumatic, normocephalic Eyes: Anicteric, normal conjunctiva, extraocular movements grossly intact Neck: Supple Respiratory: Scattered wheezes, normal respiratory effort Cardiovascular: Regular rate and rhythm GI: Soft, tender in lower quadrants without rigidity or guarding Extremities: No edema Musculoskeletal: Moving all extremities Neuro: No overt focal neurological deficits Skin: No rashes appreciated Psych: Cooperative Results Lab / Micro Data 04/17/24 11:35 04/17/24 11:35 Labs: Laboratory Results - last 24 hr 04/17/24 11:35: WBC 6.5, RBC 4.22, Hgb 12.2, Hct 39.0, MCV 92.4, MCH 28.9, MCHC 31.3 L, RDW Std Deviation 47.5 H, RDW Coeff of Doe 13.9, Plt Count 294, MPV 8.7, Immature Gran % (Auto) 0.200, Neut % (Auto) 53.9, Lymph % (Auto) 35.9, [place] % (Auto) 7.7, Eos % (Auto) 1.7, Baso % (Auto) 0.6, Absolute Neuts (auto) 3.5, Absolute Lymphs (auto) 2.32, Nucleated RBC % 0, Sodium 141, Potassium 3.9, C hloride 109 H, Carbon Dioxide 28.0, Anion Gap 4 L, BUN 13, Creatinine 0.80, Estim Creat Clear Calc 69.26, Est GFR (MDRD) Af Amer 90, Est GFR (MDRD) Non-Af 75, BUN/Creatinine Ratio 16.2, Glucose 112 H, Lactic Acid 1.6, Calcium 9.7 04/17/24 12:46: Urine Color Yellow, Urine Clarity Clear, Urine pH 7.0, Ur Specific [place] 1.010, Urine Protein Negative, Urine Glucose (UA) Normal, Urine Ketones Negative, Urine Occult Blood 10 H, Urine Nitrite Negative, Urine Bilirubin Negative, Urine Urobilinogen Normal, Ur Leukocyte Esterase Negative, Urine RBC 0 SEEN, Urine WBC 0 SEEN, Ur Squamous Epith Cells 0-5 SEEN, Urine Bacteria 1+, Urine Mucus 0 SEEN Imaging Radiology Impression Abdomen/Pelvis CT 04/17/24 12:27 IMPRESSION: 1. Persistent multiple bilateral pulmonary nodules suggestive of metastatic disease. 2. Acute sigmoid diverticulitis with suggestion of a 14 mm intramural abscess. Follow-up endoscopy following the acute phase recommended. Electronically Signed: Kody Oliveira MD at 15:13 EDT Reading Location ID and State: [id number] [facility] Tel , Service support , Assessment & Plan Assessment/Plan (1) Diverticulitis: (2) Obstructive sleep apnea syndrome: (3) GERD (gastroesophageal reflux disease): (4) Stage 3 severe COPD by GOLD classification: (5) Type 2 diabetes mellitus: QUALIFIERS: Diabetes mellitus complication status: without complication Diabetes mellitus group home insulin use: unspecified intermediate project manager insulin use status Qualified Code(s): E11.9 - Type 2 diabetes mellitus without complications (6) Carcinoid tumor of right lung: PLAN: Plan # Acute diverticulitis with suggestion of 14 mm intramural abscess -Admit to MedSurg -IV fluids, Zosyn -Clear liquid diet, n.p.o. at midnight in the event patient will need surgical intervention -Surgery consult # Carcinoid tumor of lungs -Patient with bilateral pulmonary nodules which are chronic, has carcinoid and gets octreotide injections q. 28 days # COPD -Incentive spirometer -Continue home inhalers #Type 2 diabetes mellitus -Glucose checks and sliding scale insulin #FLORECITA -Continue home CPAP with 2.5 L O2 at night #GERD -Continue PPI #Hypertension -Continue motor pain #DVT ppx: SCDs Sandy Hughes MD Charges/Coding Visit Charges Inpatient E&M: 45533 Init Hosp L1
[2024-04-17] MEDS: Ipratropium/Albuterol Sulfate 3 ML AMPUL.NEB INHALATION (19:31)
[2024-04-17] MEDS: Acetaminophen 325 MG Tablet 650 MG PO (20:11)
[2024-04-17] MEDS: Piperacil/Tazobactam 3.375 GM in 0.9% Normal Saline (50mL MB+) 50 ML IV (21:16)
[2024-04-17 21:35] LABS: Bedside Glucose 137 mg/dL (74-106)
--- NOTE | 2024-04-17 21:36 | CPS ---
Patient refused pulmicort. Only duoneb given at this time. RT brought in sleep lab PAP machine for night time use. PAP pressures are set at patient's current home pressures. CPAP 11 and 2.5L bleed with medium sized FFM.
[2024-04-18 02:30] VITALS: BP 142/83; PULSE 67; RESP 16; TEMP 36.8; O2SAT 100
[2024-04-18 04:05] LABS: Absolute Lymphocyte Count 2.03 X10^3/uL (0.83-4.51); Absolute Neutrophil Count 4.2 X10^3/uL (2.0-7.7); Basophil# 0.03 X10^3/uL; Basophil% 0.4 % (0-1); Eosinophil# 0.07 X10^3/uL; Hematocrit 36.3 % (37-47); Hemoglobin 11.3 g/dL (12.0-15.0); Lymphocyte # 2.03 X10^3/ul (0.83-4.51); Lymphocyte % 29.7 % (19-41); Mean Corp Hgb Conc 31.1 g/dL (32-36); Mean Corpuscular Hgb 29.4 pg (27.0-32.0); Mean Corpuscular Volume 94.5 fL (81-99); Monocyte# 0.46 X10^3/uL; Monocyte% 6.7 % (0-10); NRBC Flagged by Analyzer 0 % (0-5); Neutrophil # 4.24 X10^3/uL (2.7-7.7); Neutrophil % 62.1 % (47-70); Platelet Count 272 K/mm3 (150-450); RBC Distribution Width SD 48.3 fl (35.1-43.9); Red Blood Count 3.84 M/mm3 (4.2-5.4); White Blood Count 6.8 K/mm3 (4.4-11.0)
[2024-04-18 04:42] LABS: Anion Gap 4 (5-15); BUN 11 mg/dL (7-18); BUN/Creat Ratio 13.2 RATIO (10-20); Calcium,Total 8.7 mg/dL (8.5-10.1); Chloride 106 mmol/L (98-107); Creatinine, Serum 0.83 mg/dL (0.55-1.02); EST Glomerular Filtration Rate 71 mL/min (>60); Est Glom Filt Rate - Afr Amer 86 mL/min (>60); Estimated Creatinine Clearance 66.88 ml/min; Glucose 134 mg/dL (74-106); Potassium 3.7 mmol/L (3.5-5.1); Sodium Level 139 mmol/L (136-145)
--- NOTE | 2024-04-18 05:00 | EKG12_ITS ---
Test Reason : PRE-OP Blood Pressure : / mmHG Vent. Rate : 070 BPM Atrial Rate : 070 BPM P-R Int : 214 ms QRS Dur : 084 ms QT Int : 382 ms P-R-T Axes : 073 048 037 degrees QTc Int : 412 ms Sinus rhythm with 1st degree A-V block Nonspecific T wave abnormality Abnormal ECG When compared with ECG of 16-JUN-2022 11:53, Non-specific change in ST segment in Anterior leads Nonspecific T wave abnormality, worse in Inferior leads Confirmed by Ron Cast ([id number]), book editor FELISHA RUDOLPH ([id number]) on 04/20/2024 2:12:20 PM Referred By: SYLVAIN Confirmed By:Ron Cast
[2024-04-18] MEDS: 0.9% Normal Saline (1000mL) 1,000 ML 125 ML IV ×3 (05:34→20:33)
[2024-04-18] MEDS: Piperacil/Tazobactam 3.375 GM in 0.9% Normal Saline (50mL MB+) 50 ML IV ×3 (05:34→20:34)
[2024-04-18 07:11] LABS: Bedside Glucose 128 mg/dL (74-106)
--- NOTE | 2024-04-18 07:24 | EX.PCM.CON.S ---
Assessment & Plan Assessment/Plan (1) Acute diverticulitis: PLAN: Plan Plan to continue on clear liquids until pain has resolved. Continue IV antibiotics. No current plans for surgical intervention as patient is never had IV antibiotics and also has a significant past medical history with the carcinoid tumor of the lung/COPD. Discussed with patient. Patient was agreeable with plan. Argenis Lim M.D. Pager: [phone] [facility] [address] [place] [address], Outpatient [place], [address] [place] [id number] Office: [phone] HPI Consult Data Date of Consult: 04/18/24 HPI Narrative HPI Narrative: GURVINDER DONOVAN, is a 73 F who presents to the ER due to lower abdominal pain. Patient states that in February she got 7 days of Augmentin for diverticulitis states since then she has had intermittent pain but recently in the last 2 weeks it has gotten worse. Patient states she has gotten outpatient antibiotics a couple times for diverticulitis but has never been admitted to the hospital. Patient states that it hurts every time she eats. Patient had a normal white blood cell count in the ER CT abdomen pelvis showed diverticulitis questionable 14 mm intermural abscess. Patient was admitted for IV antibiotics. Patient states that her abdominal pain has improved was an 8/10 when she came in now worse may be a 6/10. Patient is currently on IV Zosyn. Patient does have past medical history for carcinoid tumor of the lungs along with COPD which she does take oxygen at home when she is up moving around as well as a CPAP at night. Patient states she had a Cologuard that was negative maybe about 5 years ago prior to that did have a colonoscopy. Patient states she has been having diarrhea. [facility] Medical History (Updated 04/17/24 @ 17:[address] Sandy Hughes MD) Left shoulder pain Dislocation of left shoulder joint Palpitations Subcutaneous nodule of right lower leg Screening for breast cancer Type 2 diabetes mellitus Preoperative evaluation to rule out surgical contraindication Tremor Essential tremor Localized swelling of chest wall Chest wall pain Change in skin mole Chronic diarrhea Diverticulosis GERD (gastroesophageal reflux disease) Diffuse idiopathic pulmonary neuroendocrine cell hyperplasia Vitamin deficiency Hypertriglyceridemia GI problem Chronic bronchitis Seasonal allergies Home Medications ?Medication ?Instructions ?Recorded ?Last Taken ?Type blood pressure monitor #1 ea 02/18/20 Unknown Rx octreotide,microspheres 30 mg 30 mg IM Q4W 02/18/20 Unknown History intramuscular susp, extended release (Sandostatin LAR [place]) nebulizers #1 ea 08/01/20 Unknown Rx Disability Placard #1 ea 05/25/21 Unknown Rx dicyclomine 20 mg tablet 20 mg PO TID #90 tabs 07/02/22 Unknown Rx mometasone 50 mcg/actuation nasal 2 spray intranasal DAILY #17 grams 07/02/22 Unknown Rx spray blood-glucose meter (Accu-Chek #1 ea 02/20/23 Unknown Rx Guide Glucose Meter) lancets (Accu-Chek Softclix #100 ea 02/20/23 Unknown Rx Lancets) blood sugar diagnostic (Blood #100 ea 04/15/23 Unknown Rx Glucose Test strips) metformin 500 mg tablet,extended 500 mg PO QPM #90 tabs 05/28/23 Unknown Rx release 24hr (osmotic) escitalopram oxalate 20 mg tablet 20 mg PO DAILY #90 tabs 08/27/23 Unknown Rx pantoprazole 40 mg tablet,delayed 40 mg PO DAILY #90 tabs 10/06/23 Unknown Rx release (Protonix) amlodipine 5 mg tablet See Rx Instructions .Route 02/23/24 Unknown Rx .COMPLEX #90 tabs albuterol sulfate 2.5 mg/3 mL 2.5 mg (3 mL) inhalation Q4H PRN 04/06/24 Unknown Rx (0.083 %) solution for nebulization shortness of breath or wheezing #90 mL albuterol sulfate 90 mcg/actuation 2 puff inhalation Q6H PRN Sob &/Or 04/06/24 Unknown Rx aerosol inhaler (Ventolin HFA) Wheezing #3 ea budesonide 160 mcg-glycopyr 9 2 inh inhalation BID #3 ea 04/06/24 Unknown Rx mcg-formot 4.8 mcg/actuation HFA inhaler (Breztri Aerosphere) Allergy/AdvReac Type Severity Reaction Status Date / Time hydromorphone (From Dilaudid) Allergy Severe Hallucinati Verified 04/17/24 11:58 ons Family History Brother Diabetes Heart disease Lung cancer Daughter Alcohol abuse Anxiety Father Dementia Mother Enlarged heart Surgical History History of appendectomy History of cholecystectomy History of total hip replacement Hx of oophorectomy Hx of hysterectomy Social History Smoking Status: Never smoker second hand exposure: No alcohol intake: current alcohol intake frequency: a few times a month Alcohol type: wine substance use type: does not use what type of physical activity do you participate in: none nico/baptism: Pentecostal seatbelt use: always do you feel safe at home: Yes ROS Eyes Eyes: Denies loss of central vision ENT HEENT: Denies dysphagia Cardiovascular Cardiovascular: Denies chest pain Respiratory/Chest Respiratory/Chest: Reports shortness of breath with exertion Gastrointestinal Gastrointestinal: Reports abdominal pain and diarrhea; Denies nausea or vomiting Genitourinary Genitourinary: Denies dysuria Musculoskeletal Musculoskeletal: Denies joint swelling Integumentary Integumentary: Denies jaundice Neurologic Neurologic: Denies focal weakness Psychiatric Psychiatric: Denies depression Endocrine Endocrinology: Denies palpitations Hematologic/Lymphatic Hematologic/Lymphatic: Denies easy bleeding Physical Exam Const alert, oriented x3 and no apparent distress HEENT normocephalic and head/scalp atraumatic Resp normal respiratory effort Cardio regular rate GI soft to palpation; Negative for non-distended Palpation: tender LLQ and RLQ; Negative for guarding Extremity no clubbing, cyanosis or edema Neuro CN's II-XII intact bilaterally Psych mental status grossly normal Lab / Micro Data 04/18/24 03:29 04/18/24 03:29 Labs: Laboratory Results - last 24 hr 04/17/24 11:35: WBC 6.5, RBC 4.22, Hgb 12.2, Hct 39.0, MCV 92.4, MCH 28.9, MCHC 31.3 L, RDW Std Deviation 47.5 H, RDW Coeff of Doe 13.9, Plt Count 294, MPV 8.7, Immature Gran % (Auto) 0.200, Neut % (Auto) 53.9, Lymph % (Auto) 35.9, [place] % (Auto) 7.7, Eos % (Auto) 1.7, Baso % (Auto) 0.6, Absolute Neuts (auto) 3.5, Absolute Lymphs (auto) 2.32, Nucleated RBC % 0, Sodium 141, Potassium 3.9, Chloride 109 H, Carbon Dioxide 28.0, Anion Gap 4 L, BUN 13, Creatinine 0.80, Estim Creat Clear Calc 69.26, Est GFR (MDRD) Af Amer 90, Est GFR (MDRD) Non-Af 75, BUN/Creatinine Ratio 16.2, Glucose 112 H, Lactic Acid 1.6, Calcium 9.7 04/17/24 12:46: Urine Color Yellow, Urine Clarity Clear, Urine pH 7.0, Ur Specific [place] 1.010, Urine Protein Negative, Urine Glucose (UA) Normal, Urine Ketones Negative, Urine Occult Blood 10 H, Urine Nitrite Negative, Urine Bilirubin Negative, Urine Urobilinogen Normal, Ur Leukocyte Esterase Negative, Urine RBC 0 SEEN, Urine WBC 0 SEEN, Ur Squamous Epith Cells 0-5 SEEN, Urine Bacteria 1+, Urine Mucus 0 SEEN 04/17/24 21:15: POC Glucose 137 H 04/18/24 03:29: WBC 6.8, RBC 3.84 L, Hgb 11.3 L, Hct 36.3 L, MCV 94.5, MCH 29.4, MCHC 31.1 L, RDW Std Deviation 48.3 H, RDW Coeff of Doe 14.0, Plt Count 272, MPV 9.0, Immature Gran % (Auto) 0.100, Neut % (Auto) 62.1, Lymph % (Auto) 29.7, [place] % (Auto) 6.7, Eos % (Auto) 1.0, Baso % (Auto) 0.4, Absolute Neuts (auto) 4.2, Absolute Lymphs (auto) 2.03, Nucleated RBC % 0, Sodium 139, Potassium 3.7, Chloride 106, Carbon Dioxide 29.0, Anion Gap 4 L, BUN 11, Creatinine 0.83, Estim Creat Clear Calc 66.88, Est GFR (MDRD) Af Amer 86, Est GFR (MDRD) Non-Af 71, BUN/Creatinine Ratio 13.2, Glucose 134 H, Calcium 8.7 04/18/24 06:20: POC Glucose 128 H Imaging Radiology Impression Abdomen/Pelvis CT 04/17/24 12:27 IMPRESSION: 1. Persistent multiple bilateral pulmonary nodules suggestive of metastatic disease. 2. Acute sigmoid diverticulitis with suggestion of a 14 mm intramural abscess. Follow-up endoscopy following the acute phase recommended. Electronically Signed: Kody Oliveira MD at 15:13 EDT , Charges/Coding Multi Select Codes Visit Charges Visit Charges: 12917 Init Hosp L3
[2024-04-18 07:30] LABS: Hemoglobin A1c 6.7 % (3.8-5.6)
--- NOTE | 2024-04-18 07:31 | PN.HOSP_ITS ---
Reason for Visit Reason for Visit: Diagnoses Benign carcinoid tumor of the bronchus and lung (04/17/24) Type 2 diabetes mellitus without complications (04/17/24) Obstructive sleep apnea (adult) (pediatric) (04/17/24) Chronic obstructive pulmonary disease, unspecified (04/17/24) Gastro-esophageal reflux disease without esophagitis (04/17/24) Diverticulitis of intestine, part unspecified, without perforation or abscess without bleeding (04/17/24) Subjective Subjective Patient is a 73-year-old lady with history of carcinoid tumor involving the lungs who presented with 3-week history of abdominal pain. Imaging studies demonstrated acute diverticulitis Objective Data Objective Data Vital Signs: Vital Signs Temp Pulse Resp BP Pulse Ox O2 Del Method 98.2 F 67 16 142/83 H 100 CPAP 04/18/24 02:30 04/18/24 02:30 04/18/24 02:30 04/18/24 02:30 04/18/24 02:30 04/18/24 02:30 Oxygen Delivery Method CPAP Weight: 86.5 kg Body Mass Index (BMI) 30.7 Intake & Output: Intake and Output for Last 24 Hours 04/16/24 04/17/24 04/18/24 23:59 23:59 23:59 Intake Total 1100 / 1100 1050 / 1050 Balance 1100 / 1100 1050 / 1050 Lab / Micro Data 04/18/24 03:29 04/18/24 03:29 Labs: Laboratory Results - last 24 hr 04/17/24 11:35: WBC 6.5, RBC 4.22, Hgb 12.2, Hct 39.0, MCV 92.4, MCH 28.9, MCHC 31.3 L, RDW Std Deviation 47.5 H, RDW Coeff of Doe 13.9, Plt Count 294, MPV 8.7, Immature Gran % (Auto) 0.200, Neut % (Auto) 53.9, Lymph % (Auto) 35.9, [place] % (Auto) 7.7, Eos % (Auto) 1.7, Baso % (Auto) 0.6, Absolute Neuts (auto) 3.5, Absolute Lymphs (auto) 2.32, Nucleated RBC % 0, Sodium 141, Potassium 3.9, C hloride 109 H, Carbon Dioxide 28.0, Anion Gap 4 L, BUN 13, Creatinine 0.80, Estim Creat Clear Calc 69.26, Est GFR (MDRD) Af Amer 90, Est GFR (MDRD) Non-Af 75, BUN/Creatinine Ratio 16.2, Glucose 112 H, Lactic Acid 1.6, Calcium 9.7 04/17/24 12:46: Urine Color Yellow, Urine Clarity Clear, Urine pH 7.0, Ur Specific [place] 1.010, Urine Protein Negative, Urine Glucose (UA) Normal, Urine Ketones Negative, Urine Occult Blood 10 H, Urine Nitrite Negative, Urine Bilirubin Negative, Urine Urobilinogen Normal, Ur Leukocyte Esterase Negative, Urine RBC 0 SEEN, Urine WBC 0 SEEN, Ur Squamous Epith Cells 0-5 SEEN, Urine Bacteria 1+, Urine Mucus 0 SEEN 04/17/24 21:15: POC Glucose 137 H 04/18/24 03:29: WBC 6.8, RBC 3.84 L, Hgb 11.3 L, Hct 36.3 L, MCV 94.5, MCH 29.4, MCHC 31.1 L, RDW Std Deviation 48.3 H, RDW Coeff of Doe 14.0, Plt Count 272, MPV 9.0, Immature Gran % (Auto) 0.100, Neut % (Auto) 62.1, Lymph % (Auto) 29.7, [place] % (Auto) 6.7, Eos % (Auto) 1.0, Baso % (Auto) 0.4, Absolute Neuts (auto) 4.2, Absolute Lymphs (auto) 2.03, Nucleated RBC % 0, Sodium 139, Potassium 3.7, Chloride 106, Carbon Dioxide 29.0, Anion Gap 4 L, BUN 11, Creatinine 0.83, Estim Creat Clear Calc 66.88, Est GFR (MDRD) Af Amer 86, Est GFR (MDRD) Non-Af 71, BUN/Creatinine Ratio 13.2, Glucose 134 H, Hemoglobin A1c 6.7 H, Calcium 8.7 04/18/24 06:20: POC Glucose 128 H Radiography Diagnostic Testing: Radiology Impression Abdomen/Pelvis CT 04/17/24 12:27 IMPRESSION: 1. Persistent multiple bilateral pulmonary nodules suggestive of metastatic disease. 2. Acute sigmoid diverticulitis with suggestion of a 14 mm intramural abscess. Follow-up endoscopy following the acute phase recommended. Electronically Signed: Kody Oliveira MD at 15:13 EDT , Physical Exam Narrative GENERAL: cooperative HEENT: Atraumatic; normocephalic EYES; Anicteric, Normal Conjunctiva NECK; supple, normal thyroid, RESPIRATORY: Diminished to auscultation CARDIOVASCULAR: Regular S1 S2, GI: soft, normoactive bowel sounds, : No Renal angle tenderness; EXTREMITIES: No edema, no clubbing, MUSCULOSKELETAL: no muscle wasting NEURO: Awake; no lateralizing signs. SKIN: No Rash PSYCH; Flat affect Assessment & Plan Assessment/Plan (1) Diverticulitis: (2) Obstructive sleep apnea syndrome: (3) GERD (gastroesophageal reflux disease): (4) Stage 3 severe COPD by GOLD classification: (5) Type 2 diabetes mellitus: QUALIFIERS: Diabetes mellitus complication status: without complication Diabetes mellitus half-way insulin use: unspecified intermediate project manager insulin use status Qualified Code(s): E11.9 - Type 2 diabetes mellitus without complications (6) Carcinoid tumor of right lung: PLAN: Plan Patient is a 73-year-old lady with history of carcinoid tumor involving the lungs who presented with 3-week history of abdominal pain. Imaging studies demonstrated acute diverticulitis 1. Acute diverticulitis ? CT of the abdomen and pelvis obtained did show Acute sigmoid diverticulitis with suggestion of a 14 mm intramural abscess. Patient admitted to regular nursing floor antibiotics initiated per protocol consult placed to general surgery Case discussed with Dr. Trujillo plan is to treat conservatively at this point 2. 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 Patient remains stable. Patient is on every 4 week octreotide 3. Diabetes mellitus type II -patient's oral hypoglycemics held. Placed on long acting insulin, Accu-Cheks a.c. and at bedtime and covered with sliding scale insulin 4. COPD ? Currently not in exacerbation aerosol treatment as needed 5. GERD ? Patient is on PPI 6. Hypertension - Blood pressure controlled, home medications continued with dose adjustment as needed 7. GERD Dysphagia on PPI 8. Class I obesity with BMI of 31 ? Weight loss advised 9. Anemia - Secondary to chronic disorder monitoring H&H and transfuse if patient becomes symptomatic or hemoglobin falls below 7 10. Depression with anxiety ? Patient is on escitalopram plan is to continue 11. DVT prophylaxis ? SC Lovenox Time spent in the patient's overall evaluation,decision-making process, review of diagnostic data, adjustment of management, discussion with other providers, nursing nursing and ancillary staff involved in patient's care documentation, 36 Minutes Charges/Coding Visit Charges Inpatient E&M: 30034 Subs Hosp L2
[2024-04-18] MEDS: Ipratropium/Albuterol Sulfate 3 ML AMPUL.NEB INHALATION ×2 (07:34→19:17)
[2024-04-18] MEDS: Budesonide Respules 0.5 MG/2 ML AMPUL.NEB. INHALATION (07:34)
[2024-04-18 09:00] VITALS: BP 127/81; PULSE 75; RESP 18; TEMP 36.8; O2SAT 97
[2024-04-18] MEDS: Escitalopram Oxalate 20 MG Tablet PO (09:02)
[2024-04-18] MEDS: Pantoprazole Sodium 40 MG Tablet PO (09:02)
[2024-04-18] MEDS: amLODIPine 5 MG Tablet PO (09:02)
[2024-04-18] MEDS: Acetaminophen 325 MG Tablet 650 MG PO ×2 (10:12→20:37)
[2024-04-18 11:40] LABS: Bedside Glucose 143 mg/dL (74-106)
[2024-04-18 13:31] VITALS: BP 117/72; PULSE 69; RESP 18; TEMP 37.1; O2SAT 97
[2024-04-18] MEDS: Ibuprofen 600 MG Tablet PO (13:35)
[2024-04-18] MEDS: proMETHazine 25 MG Tablet PO (13:36)
[2024-04-18 16:42] LABS: Bedside Glucose 119 mg/dL (74-106)
[2024-04-18 19:17] VITALS: PULSE 68; RESP 12; O2SAT 94
[2024-04-18 20:22] VITALS: BP 128/83; PULSE 86; RESP 18; TEMP 36.7; O2SAT 93
[2024-04-19 03:07] VITALS: BP 137/80; PULSE 70; RESP 18; TEMP 36.6; O2SAT 100
[2024-04-19] MEDS: Piperacil/Tazobactam 3.375 GM in 0.9% Normal Saline (50mL MB+) 50 ML IV ×2 (04:48→13:42)
[2024-04-19] MEDS: 0.9% Normal Saline (1000mL) 1,000 ML 125 ML IV ×2 (04:49→13:41)
[2024-04-19 07:14] LABS: Bedside Glucose 117 mg/dL (74-106)
--- NOTE | 2024-04-19 07:14 | PN.HOSP_ITS ---
Reason for Visit Reason for Visit: Diagnoses Benign carcinoid tumor of the bronchus and lung (04/17/24) Type 2 diabetes mellitus without complications (04/17/24) Obstructive sleep apnea (adult) (pediatric) (04/17/24) Chronic obstructive pulmonary disease, unspecified (04/17/24) Gastro-esophageal reflux disease without esophagitis (04/17/24) Diverticulitis of intestine, part unspecified, without perforation or abscess without bleeding (04/17/24) Objective Data Objective Data Vital Signs: Vital Signs Temp Pulse Resp BP Pulse Ox O2 Del Method 97.8 F 70 18 137/80 H 100 CPAP 04/19/24 03:07 04/19/24 03:07 04/19/24 03:07 04/19/24 03:07 04/19/24 03:07 04/19/24 03:13 Oxygen Delivery Method CPAP Weight: 86.5 kg Body Mass Index (BMI) 30.7 Intake & Output: Intake and Output for Last 24 Hours 04/17/24 04/18/24 04/19/24 23:59 23:59 23:59 Intake Total 1100 / 1100 3672.92 / 4072.92 1450 / 1450 Output Total 3 / 3 Balance 1100 / 1100 3672.92 / 4069.92 1447 / 1447 Lab / Micro Data 04/18/24 03:29 04/18/24 03:29 Labs: Laboratory Results - last 24 hr 04/18/24 03:29: Hemoglobin A1c 6.7 H 04/18/24 11:21: POC Glucose 143 H 04/18/24 16:08: POC Glucose 119 H 04/19/24 06:01: POC Glucose 117 H Physical Exam Narrative GENERAL: cooperative HEENT: Atraumatic; normocephalic EYES; Anicteric, Normal Conjunctiva NECK; supple, normal thyroid, RESPIRATORY: Diminished to auscultation CARDIOVASCULAR: Regular S1 S2, GI: soft, normoactive bowel sounds, : No Renal angle tenderness; EXTREMITIES: No edema, no clubbing, MUSCULOSKELETAL: no muscle wasting NEURO: Awake; no lateralizing signs. SKIN: No Rash PSYCH; Flat affect Assessment & Plan Assessment/Plan (1) Diverticulitis: (2) Obstructive sleep apnea syndrome: (3) GERD (gastroesophageal reflux disease): (4) Stage 3 severe COPD by GOLD classification: (5) Type 2 diabetes mellitus: QUALIFIERS: Diabetes mellitus manager terminal insulin use: unspecified residential insulin use status Diabetes mellitus complication status: without complication Qualified Code(s): E11.9 - Type 2 diabetes mellitus without complications (6) Carcinoid tumor of right lung: PLAN: Plan Patient is a 73-year-old lady with history of carcinoid tumor involving the lungs who presented with 3-week history of abdominal pain. Imaging studies demonstrated acute diverticulitis 1. Acute diverticulitis ? CT of the abdomen and pelvis obtained did show Acute sigmoid diverticulitis with suggestion of a 14 mm intramural abscess. Patient admitted to regular nursing floor antibiotics initiated per protocol consult placed to general surgery Case discussed with Dr. Trujillo plan is to treat conservatively at this point 2. 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 Patient remains stable. Patient is on every 4 week octreotide 3. Diabetes mellitus type II -patient's oral hypoglycemics held. Placed on long acting insulin, Accu-Cheks a.c. and at bedtime and covered with sliding scale insulin 4. COPD ? Currently not in exacerbation aerosol treatment as needed 5. GERD ? Patient is on PPI 6. Hypertension - Blood pressure controlled, home medications continued with dose adjustment as needed 7. GERD Dysphagia on PPI 8. Class I obesity with BMI of 31 ? Weight loss advised 9. Anemia - Secondary to chronic disorder monitoring H&H and transfuse if patient becomes symptomatic or hemoglobin falls below 7 10. Depression with anxiety ? Patient is on escitalopram plan is to continue 11. DVT prophylaxis ? SC Lovenox Time spent in the patient's overall evaluation,decision-making process, review of diagnostic data, adjustment of management, discussion with other providers, nursing nursing and ancillary staff involved in patient's care documentation, 36 Minutes
[2024-04-19 07:43] LABS: Absolute Lymphocyte Count 1.96 X10^3/uL (0.83-4.51); Absolute Neutrophil Count 1.7 X10^3/uL (2.0-7.7); Basophil# 0.04 X10^3/uL; Basophil% 0.9 % (0-1); Eosinophil# 0.18 X10^3/uL; Eosinophils% 4.2 % (0-5); Hematocrit 35.2 % (37-47); Hemoglobin 10.9 g/dL (12.0-15.0); Lymphocyte # 1.96 X10^3/ul (0.83-4.51); Lymphocyte % 45.7 % (19-41); Mean Corpuscular Hgb 29.5 pg (27.0-32.0); Mean Corpuscular Volume 95.1 fL (81-99); Mean Platelet Vol. 8.8 fl (6.2-12.0); Monocyte# 0.36 X10^3/uL; Monocyte% 8.4 % (0-10); NRBC Flagged by Analyzer 0 % (0-5); Neutrophil # 1.74 X10^3/uL (2.7-7.7); Neutrophil % 40.6 % (47-70); Platelet Count 262 K/mm3 (150-450); RBC Distribution Width SD 48.9 fl (35.1-43.9); White Blood Count 4.3 K/mm3 (4.4-11.0)
[2024-04-19 07:54] VITALS: BP 134/76; PULSE 63; RESP 18; TEMP 36.7; O2SAT 97
[2024-04-19 08:04] LABS: Anion Gap 3 (5-15); BUN 5 mg/dL (7-18); BUN/Creat Ratio 6.9 RATIO (10-20); Calcium,Total 8.5 mg/dL (8.5-10.1); Chloride 111 mmol/L (98-107); Creatinine, Serum 0.72 mg/dL (0.55-1.02); EST Glomerular Filtration Rate 84 mL/min (>60); Est Glom Filt Rate - Afr Amer 102 mL/min (>60); Estimated Creatinine Clearance 69.39 ml/min; Glucose 122 mg/dL (74-106); Magnesium 2.2 mg/dL (1.6-2.6); Phosphorus 2.5 mg/dL (2.5-4.9); Potassium 3.5 mmol/L (3.5-5.1); Sodium Level 145 mmol/L (136-145)
--- NOTE | 2024-04-19 08:46 | PN.SURG_ITS ---
Subjective Subjective Patient evaluated resting comfortably in bed. She notes some discomfort with flatus and urination in the right lower quadrant. She denies any pain, nausea, vomiting with her clear liquid diet. She denies a fever. Positive flatus. No bowel movement. Objective Data Objective Data Vital Signs: Vital Signs Temp Pulse Resp BP Pulse Ox O2 Del Method 98.0 F 63 18 134/76 H 97 Room Air 04/19/24 07:54 04/19/24 07:54 04/19/24 07:54 04/19/24 07:54 04/19/24 07:54 04/19/24 07:56 Oxygen Delivery Method Room Air Weight: 190 lb 11.198 oz Body Mass Index (BMI) 30.7 Intake & Output: Intake and Output for Last 24 Hours 04/17/24 04/18/24 04/19/24 23:59 23:59 23:59 Intake Total 1100 / 1100 3672.92 / 4072.92 1450 / 1450 Output Total 3 / 3 Balance 1100 / 1100 3672.92 / 4069.92 1447 / 1447 Lab / Micro Data 04/19/24 07:34 04/19/24 07:34 Labs: Laboratory Results - last 24 hr 04/18/24 11:21: POC Glucose 143 H 04/18/24 16:08: POC Glucose 119 H 04/19/24 06:01: POC Glucose 117 H 04/19/24 07:34: WBC 4.3 L, RBC 3.70 L, Hgb 10.9 L, Hct 35.2 L, MCV 95.1, MCH 29.5, MCHC 31.0 L, RDW Std Deviation 48.9 H, RDW Coeff of Doe 14.0, Plt Count 262, MPV 8.8, Immature Gran % (Auto) 0.200, Neut % (Auto) 40.6 L, Lymph % (Auto) 45.7 H, [place] % (Auto) 8.4, Eos % (Auto) 4.2, Baso % (Auto) 0.9, Absolute Neuts (auto) 1.7 L, Absolute Lymphs (auto) 1.96, Nucleated RBC % 0, Sodium 145, Potassium 3.5, Chloride 111 H, Carbon Dioxide 31.0, Anion Gap 3 L, BUN 5 L, Creatinine 0.72, Estim Creat Clear Calc 69.39, Est GFR (MDRD) Af Amer 102, Est GFR (MDRD) Non-Af 84, BUN/Creatinine Ratio 6.9 L, Glucose 122 H, Calcium 8.5, Phosphorus 2.5, Magnesium 2.2 Physical Exam GI GI Narrative: Abdomen- soft, very minimal tenderness to deep palpation in the right lower quadrant. Assessment & Plan Assessment/Plan (1) Acute diverticulitis: PLAN: I am following this patient in conjunction with Dr. Lim. She will independently evaluate this patient. Labs reviewed Advance to full liquids this morning, if tolerate advance to regular low residue diet If she tolerates regular low residue diet without pain, she may be discharged later today She will need to continue on a course of Augmentin as an outpatient for a total of 14 days She will need to follow-up with Dr. Lim in 14 days to discuss scheduling a colonoscopy and possible repeat imaging We will continue to monitor this patient Charges/Coding Visit Charges Inpatient E&M: 67912 [facility] Hosp L1
[2024-04-19] MEDS: Escitalopram Oxalate 20 MG Tablet PO (10:12)
[2024-04-19] MEDS: amLODIPine 5 MG Tablet PO (10:12)
[2024-04-19] MEDS: Pantoprazole Sodium 40 MG Tablet PO (10:12)
--- NOTE | 2024-04-19 11:30 | DS.PCM_ITS ---
Providers Date of Admission: 04/17/24 Date of Discharge: 04/19/24 Primary Care Physician: Dr. Fco Bell MD Consultations 04/17/24 18:36 Consult: General Surgery Routine Consulting Provider: Argenis Lim Reason for Consult: Diverticulitis with possible abscess EMERGENT Consult: No MD Notified: Yes Date Notified: 04/17/24 Time Notified: 17:41 Method of Notification: ED Physician Initiated Reason For Visit: ACUTE DIVERTICULITIS W/ POSS ABSCESS Diagnosis Discharge Diagnosis (1) Acute diverticulitis: Status: Acute Code(s): K57.92 - Diverticulitis of intestine, part unspecified, without perforation or abscess without bleeding Plan Patient is a 73-year-old lady with history of carcinoid tumor involving the lungs who presented with 3-week history of abdominal pain. Imaging studies demonstrated acute diverticulitis 1. Acute diverticulitis ? CT of the abdomen and pelvis obtained did show Acute sigmoid diverticulitis with suggestion of a 14 mm intramural abscess. Patient admitted to regular nursing floor antibiotics initiated per protocol consult placed to general surgery Case discussed with Dr. Trujillo plan is to treat conservatively at this point ? 04/19/2024;Patient seen abdominal pain improving. Plan is for patient to be advanced on her diet from clear to full liquid. 2. 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 Patient remains stable. Patient is on every 4 week octreotide 3. Diabetes mellitus type II -patient's oral hypoglycemics held. Placed on long acting insulin, Accu-Cheks a.c. and at bedtime and covered with sliding scale insulin 4. COPD ? Currently not in exacerbation aerosol treatment as needed 5. GERD ? Patient is on PPI 6. Hypertension - Blood pressure controlled, home medications continued with dose adjustment as needed 7. GERD Dysphagia on PPI 8. Class I obesity with BMI of 31 ? Weight loss advised 9. Anemia - Secondary to chronic disorder monitoring H&H and transfuse if patient becomes symptomatic or hemoglobin falls below 7 10. Depression with anxiety ? Patient is on escitalopram plan is to continue 11. DVT prophylaxis ? SC Lovenox Time spent in the patient's overall evaluation,decision-making process, review of diagnostic data, adjustment of management, discussion with other providers, nursing nursing and ancillary staff involved in patient's care documentation, 36 Minutes Medications at Discharge Home Medications blood pressure monitor #1 ea 02/18/20 octreotide,microspheres 30 mg intramuscular susp, extended release (Sandostatin LAR Depot) 30 mg IM Q4W 02/18/20 nebulizers #1 ea 08/01/20 Disability Placard #1 ea 05/25/21 dicyclomine 20 mg tablet 20 mg PO TID #90 tabs 07/02/22 mometasone 50 mcg/actuation nasal spray 2 spray intranasal DAILY #17 grams 07/02/22 blood-glucose meter (Accu-Chek Guide Glucose Meter) #1 ea 02/20/23 lancets (Accu-Chek Softclix Lancets) #100 ea 02/20/23 blood sugar diagnostic (Blood Glucose Test strips) #100 ea 04/15/23 metformin 500 mg tablet,extended release 24hr (osmotic) 500 mg PO QPM #90 tabs 05/28/23 escitalopram oxalate 20 mg tablet 20 mg PO DAILY #90 tabs 08/27/23 pantoprazole 40 mg tablet,delayed release (Protonix) 40 mg PO DAILY #90 tabs 10/06/23 amlodipine 5 mg tablet See Rx Instructions .Route .COMPLEX #90 tabs 02/23/24 albuterol sulfate 2.5 mg/3 mL (0.083 %) solution for nebulization 2.5 mg (3 mL) inhalation Q4H PRN shortness of breath or wheezing #90 mL 04/06/24 albuterol sulfate 90 mcg/actuation aerosol inhaler (Ventolin HFA) 2 puff inhalation Q6H PRN Sob &/Or Wheezing #3 ea 04/06/24 budesonide 160 mcg-glycopyr 9 mcg-formot 4.8 mcg/actuation HFA inhaler (Breztri Aerosphere) 2 inh inhalation BID #3 ea 04/06/24 acetaminophen 325 mg tablet 650 mg (2 x 325 mg) PO Q6H PRN PRN Pain 1-10 Or Fever >100.7 #0 tabs 04/19/24 amoxicillin 875 mg-potassium clavulanate 125 mg tablet 1 tab PO Q12H #28 tabs 04/19/24 oxycodone 5 mg tablet 5 mg PO Q4H PRN PRN Pain Score 4-10 5 days #20 tabs 04/19/24 sennosides 8.6 mg-docusate sodium 50 mg tablet (Stimulant Laxative Plus) 2 tab PO BID PRN PRN Constipation #30 tabs 04/19/24 Weight / BMI Weight Weight: 86.5 kg Body Mass Index (BMI) 30.7 ABG / Lab / Microbiology Data 04/19/24 07:34 04/19/24 07:34 Laboratory: Laboratory Results - last 24 hr 04/18/24 11:21: POC Glucose 143 H 04/18/24 16:08: POC Glucose 119 H 04/19/24 06:01: POC Glucose 117 H 04/19/24 07:34: WBC 4.3 L, RBC 3.70 L, Hgb 10.9 L, Hct 35.2 L, MCV 95.1, MCH 29.5, MCHC 31.0 L, RDW Std Deviation 48.9 H, RDW Coeff of Doe 14.0, Plt Count 262, MPV 8.8, Immature Gran % (Auto) 0.200, Neut % (Auto) 40.6 L, Lymph % (Auto) 45.7 H, Hawkins % (Auto) 8.4, Eos % (Auto) 4.2, Baso % (Auto) 0.9, Absolute Neuts (auto) 1.7 L, Absolute Lymphs (auto) 1.96, Nucleated RBC % 0, Sodium 145, Potassium 3.5, Chloride 111 H, Carbon Dioxide 31.0, Anion Gap 3 L, BUN 5 L, Creatinine 0.72, Estim Creat Clear Calc 69.39, Est GFR (MDRD) Af Amer 102, Est GFR (MDRD) Non-Af 84, BUN/Creatinine Ratio 6.9 L, Glucose 122 H, Calcium 8.5, Phosphorus 2.5, Magnesium 2.2 Meaningful Use Info Meaningful Use Meaningful Use Diagnoses (Choose all that apply): None applicable Ischemic Stroke Statin Dosing Therapy Reference: STATIN DOSE THERAPY REFERENCE: * Patients > 75 years receive moderate or high dose statin therapy. * Patients 75 years or YOUNGER should receive HIGH intensity statin dose unless contraindicated. You will be required to document reason for non-treatment if statin daily dose does not meet guidelines. HIGH DOSE STATIN THERAPY DAILY Atorvastatin > than or = to 40 mg Rosuvastatin > than or = to 20 mg Amlodipine + Atorvastatin > than or = to 2.5/40 mg Ezetimibe + Simvastatin 10/80 mg Simvastatin 80mg Discharge Plan Admission Admit Date/Time: 04/17/24 17:31 Attending Provider: Christopher Blas Primary Care Provider: Fco Bell Consulting Providers: Argenis Lim; Sandy Hughes Discharge Orders/Prescriptions Prescriptions: New oxycodone 5 mg Tablet 5 mg PO Q4H PRN PRN (Reason: Pain Score 4-10) 5 Days Qty: 20 0RF acetaminophen 325 mg Tablet 650 mg PO Q6H PRN PRN (Reason: Pain 1-10 Or Fever >100.7) Qty: 0 0RF sennosides-docusate sodium [Stimulant Laxative Plus] 8.6-50 mg Tablet 2 tab PO BID PRN PRN (Reason: Constipation) Qty: 30 0RF amoxicillin-pot clavulanate 875-125 mg tablet 1 tab PO Q12H Qty: 28 0RF Continued Sandostatin LAR Depot 30 mg suspension,extended rel recon 30 mg IM Q4W (DME) blood pressure monitor Kit See Rx Instructions .ROUTE .MEDSUPPLY Qty: 1 0RF Rx Instructions: Check blood pressure daily for hypertension I10 (DME) nebulizers Mis See Rx Instructions .ROUTE .MEDSUPPLY Qty: 1 0RF Rx Instructions: As directed (DME) Disability Placard See Rx Instructions .ROUTE .MEDSUPPLY Qty: 1 0RF Rx Instructions: Expires in 5 years dicyclomine 20 mg tablet 20 mg PO TID Qty: 90 1RF mometasone 50 mcg/actuation spray,non-aerosol 2 spray intranasal DAILY Qty: 17 6RF Rx Instructions: administer into each nostril metformin 500 mg tablet extended release 24hr 500 mg PO QPM Qty: 90 2RF escitalopram oxalate 20 mg tablet 20 mg PO DAILY Qty: 90 3RF albuterol sulfate 2.5 mg /3 mL (0.083 %) solution for nebulization 2.5 mg INHALATION Q4H PRN (Reason: shortness of breath or wheezing) Qty: 90 3RF albuterol sulfate [Ventolin HFA] 90 mcg/actuation HFA aerosol inhaler 2 puff INHALATION Q6H PRN (Reason: Sob &/Or Wheezing) Qty: 3 3RF Breztri Aerosphere 160-9-4.8 mcg/actuation HFA aerosol inhaler 2 inh inhalation BID Qty: 3 3RF (DME) blood-glucose meter [Accu-Chek Guide Glucose Meter] Misc See Rx Instructions .Route Qty: 1 0RF Rx Instructions: As directed (DME) lancets [Accu-Chek Softclix Lancets] Misc See Rx Instructions .Route Qty: 100 3RF Rx Instructions: As directed (DME) Blood Glucose Test Strip See Rx Instructions .Route Qty: 100 3RF Rx Instructions: Check BID pantoprazole [Protonix] 40 mg tablet,delayed release (DR/EC) 40 mg PO DAILY Qty: 90 3RF amlodipine 5 mg tablet See Rx Instructions .ROUTE .COMPLEX Qty: 90 0RF Dose Instruction: TAKE 1 TABLET BY MOUTH EVERY DAY Rx Instructions: TAKE 1 TABLET BY MOUTH EVERY DAY Referrals / Follow Up: Fco Bell MD [Primary Care Provider] - Within 1 Week Argenis Lim MD [Med Staff - Active Staff] - Within 2 Weeks Disposition Disposition (needs filled in before D/C Order can be placed): Home, Self Care Charges/Coding Visit Charges Inpatient E&M: 55925 Disch Hosp >30min
[2024-04-19 11:34] LABS: Bedside Glucose 145 mg/dL (74-106)
--- NOTE | 2024-04-19 11:42 | DCINST_ITS ---
Discharge Instructions Diet Discharge Diet: 1800 Calorie Control Diet Activity Discharge Activity: Return to Normal Activity Dressing / Incision Call your doctor if you observe: Fever of 101 or Higher, Shortness of breath, Fainting spells and Chest pain Follow Up Care Test Results: Test results from this visit will be discussed in further detail at your follow- up appointment, if applicable. Discharge Plan Admission Admit Date/Time: 04/17/24 17:31 Attending Provider: Christopher Blas Primary Care Provider: Fco Bell Consulting Providers: Argenis Lim; Sandy Hughes Discharge Orders/Prescriptions Prescriptions: New oxycodone 5 mg Tablet 5 mg PO Q4H PRN PRN (Reason: Pain Score 4-10) 5 Days Qty: 20 0RF acetaminophen 325 mg Tablet 650 mg PO Q6H PRN PRN (Reason: Pain 1-10 Or Fever >100.7) Qty: 0 0RF sennosides-docusate sodium [Stimulant Laxative Plus] 8.6-50 mg Tablet 2 tab PO BID PRN PRN (Reason: Constipation) Qty: 30 0RF amoxicillin-pot clavulanate 875-125 mg tablet 1 tab PO Q12H Qty: 28 0RF Continued Sandostatin LAR Depot 30 mg suspension,extended rel recon 30 mg IM Q4W (DME) blood pressure monitor Kit See Rx Instructions .ROUTE .MEDSUPPLY Qty: 1 0RF Rx Instructions: Check blood pressure daily for hypertension I10 (DME) nebulizers Misc See Rx Instructions .ROUTE .MEDSUPPLY Qty: 1 0RF Rx Instructions: [place] [place]ac[place] See Rx Instructions .ROUTE .MEDSUPPLY Qty: 1 0RF Rx Instructions: Expires in 5 years dicyclomine 20 mg tablet 20 mg PO TID Qty: 90 1RF mometasone 50 mcg/actuation spray,non-aerosol 2 spray intranasal DAILY Qty: 17 6RF Rx Instructions: administer into each nostril metformin 500 mg tablet extended release 24hr 500 mg PO QPM Qty: 90 2RF escitalopram oxalate 20 mg tablet 20 mg PO DAILY Qty: 90 3RF albuterol sulfate 2.5 mg /3 mL (0.083 %) solution for nebulization 2.5 mg INHALATION Q4H PRN (Reason: shortness of breath or wheezing) Qty: 90 3RF albuterol sulfate [Ventolin HFA] 90 mcg/actuation HFA aerosol inhaler 2 puff INHALATION Q6H PRN (Reason: Sob &/Or Wheezing) Qty: 3 3RF Breztri Aerosphere 160-9-4.8 mcg/actuation HFA aerosol inhaler 2 inh inhalation BID Qty: 3 3RF (DME) blood-glucose meter [Accu-Chek Guide Glucose Meter] Misc See Rx Instructions .Route Qty: 1 0RF Rx Instructions: As directed (DME) lancets [Accu-Chek Softclix Lancets] Misc See Rx Instructions .Route Qty: 100 3RF Rx Instructions: As directed (DME) Blood Glucose Test Strip See Rx Instructions .Route Qty: 100 3RF Rx Instructions: Check BID pantoprazole [Protonix] 40 mg tablet,delayed release (DR/EC) 40 mg PO DAILY Qty: 90 3RF amlodipine 5 mg tablet See Rx Instructions .ROUTE .COMPLEX Qty: 90 0RF Dose Instruction: TAKE 1 TABLET BY MOUTH EVERY DAY Rx Instructions: TAKE 1 TABLET BY MOUTH EVERY DAY Referrals / Follow Up: Fco Bell MD [Primary Care Provider] - Within 1 Week Argenis Lim MD [Med Staff - Active Staff] - Within 2 Weeks Disposition Disposition (needs filled in before D/C Order can be placed): Home, Self Care
--- NOTE | 2024-04-19 11:59 | NURSING ---
in to update patient on new diet order. pt stated her stomach is starting to hurt more but is unsure if it was because she had to have a BM and that's the first one she's had here. states was loose. pt agreeable to order diet with dietary and see how it goes. pt aware this nurse talk with aging room hand to give her information on restricted fiber diet as well.
--- NOTE | 2024-04-19 12:14 | CASEMGMT ---
RN DANIELLE Face to Face with patient for initial transition planning/care coordination assessment. RN CM introduced self and role at [facility]. Patient lying in bed, alert and oriented. Patient willing to participate in assessment and is able to answer all questions appropriately. Care providers, pharmacy, and demographics verified. PCP: Ray Specialists: Reagan Preferred Pharmacy: [facility] Insurance: [facility] Prescription Benefit: Yes LNOK: Daughter, Son Living Arrangements: Lives with daughter in a 2 story home with 2 steps to enter. Pt states I at home with ADLs and IADLs. Transportation: Pt drives self, states daughter able to provide transportation home. DME/HHC: O2 portable tank, concentrator, CPAP - uses [facility] for Oxygen needs. Pt denies needing portable tank to go home with, states she only uses O2 if going long distances. Patient wishes to discharge home, denies need for home health at this time. Patient states he has no further needs or concerns at this time. CM to follow for discharge planning needs that may arise. Disposition Plan: Home Deisy Ramachandran RN, CM
[2024-04-19 13:35] VITALS: BP 123/69; PULSE 74; RESP 18; TEMP 36.8; O2SAT 99
[2024-04-19] MEDS: 0.9% Saline Lock 10 ML Syringe IV (13:41)
[2024-04-19] MEDS: Ondansetron 4 MG/2 ML Vial IV (13:42)
--- NOTE | 2024-04-19 15:07 | PHA.DC_ITS ---
Pharmacy [facility] has performed discharge medication reconciliation and counseling for this patient. 1. AMOXICILLIN/CLAVULANATE 875/125MG PO Q12 X 14 DAYS 2. OXYCODONE 5MG PO Q4H PRN PAIN 4-10 3. SENNA/DOCUSATE 2T PO BID PRN PAIN The patient's discharge medication list was reviewed for discrepancies and discrepancies were resolved. The patient was counseled on the following discharge medications and changes in medications for homegoing were reviewed. The Reason for Use, instructions for use, and potential side effects were reviewed for all new medications. The patient's questions regarding all of their medications were answered. The patient was able to verbally demonstrate an understanding of their discharge medications. Medications at Discharge Home Medications blood pressure monitor #1 ea 02/18/20 octreotide,microspheres 30 mg intramuscular susp, extended release (Sandostatin LAR Depot) 30 mg IM Q4W 02/18/20 nebulizers #1 ea 08/01/20 Disability Placard #1 ea 05/25/21 dicyclomine 20 mg tablet 20 mg PO TID #90 tabs 07/02/22 mometasone 50 mcg/actuation nasal spray 2 spray intranasal DAILY #17 grams 07/02/22 blood-glucose meter (Accu-Chek Guide Glucose Meter) #1 ea 02/20/23 lancets (Accu-Chek Softclix Lancets) #100 ea 02/20/23 blood sugar diagnostic (Blood Glucose Test strips) #100 ea 04/15/23 metformin 500 mg tablet,extended release 24hr (osmotic) 500 mg PO QPM #90 tabs 05/28/23 escitalopram oxalate 20 mg tablet 20 mg PO DAILY #90 tabs 08/27/23 pantoprazole 40 mg tablet,delayed release (Protonix) 40 mg PO DAILY #90 tabs 10/06/23 amlodipine 5 mg tablet See Rx Instructions .Route .COMPLEX #90 tabs 02/23/24 albuterol sulfate 2.5 mg/3 mL (0.083 %) solution for nebulization 2.5 mg (3 mL) inhalation Q4H PRN shortness of breath or wheezing #90 mL 04/06/24 albuterol sulfate 90 mcg/actuation aerosol inhaler (Ventolin HFA) 2 puff inhalation Q6H PRN Sob &/Or Wheezing #3 ea 04/06/24 budesonide 160 mcg-glycopyr 9 mcg-formot 4.8 mcg/actuation HFA inhaler (Breztri Aerosphere) 2 inh inhalation BID #3 ea 04/06/24 acetaminophen 325 mg tablet 650 mg (2 x 325 mg) PO Q6H PRN PRN Pain 1-10 Or Fever >100.7 #0 tabs 04/19/24 amoxicillin 875 mg-potassium clavulanate 125 mg tablet 1 tab PO Q12H #28 tabs 04/19/24 oxycodone 5 mg tablet 5 mg PO Q4H PRN PRN Pain Score 4-10 5 days #20 tabs 04/19/24 sennosides 8.6 mg-docusate sodium 50 mg tablet (Stimulant Laxative Plus) 2 tab PO BID PRN PRN Constipation #30 tabs 04/19/24
[2024-04-19] MEDS: SimETHICONE 80 MG Chewable Tablet PO (15:21)
== END 2024-04-19 16:30 | disposition home or self-care (01) | DRG 392 ==
LOC: ED 16:25 → MS3 17:18
PROVIDERS: Admitting Provider Internal Medicine; Emergency Provider Emergency Medicine; PCP Internal Medicine; Visit Provider Internal Medicine
DX: K57.20 Diverticulitis of large intestine with perforation and abscess without bleeding (principal); C7A.090 Malignant carcinoid tumor of the bronchus and lung; E11.9 Type 2 diabetes mellitus without complications; D64.9 Anemia, unspecified; E66.9 Obesity, unspecified; J44.9 Chronic obstructive pulmonary disease, unspecified; I10 Essential (primary) hypertension; Z79.4 Long term (current) use of insulin; F41.8 Other specified anxiety disorders; K21.9 Gastro-esophageal reflux disease without esophagitis; G47.33 Obstructive sleep apnea (adult) (pediatric); Z80.1 Family history of malignant neoplasm of trachea, bronchus and lung; Z79.891 Long term (current) use of opiate analgesic; Z68.31 Body mass index [BMI] 31.0-31.9, adult
CPT/HCPCS: 36415; 74177; 80048; 81001; 82962; 83036; 83605; 83735; 84100; 85025; 93005; 94002; 94640; 94660; 94668; 99252; 99284; J7030; Q9967; A4216; G0463; J2405

== ENCOUNTER 2024-04-24 10:46 | Emergency (ER) | payer MEDICARE, MEDICAID, SELFPAY ==
[2024-04-24 10:46] VITALS: BP 155/94; PULSE 86; RESP 14; TEMP 36.6; O2SAT 99; BMI 30.7
--- NOTE | 2024-04-24 11:03 | EDS_ITS ---
HPI History of Present Illness Chief Complaint: Ear Problem Detail of Chief Complaint: Q-tip right ear Informant: patient Onset/Context/Timing Onset: Hours Context: Sudden Onset Timing: Continuous Quality: Q-tip foreign body Location: Right ear 100% Current Severity: Foreign body sensation Maximum Severity: Pain when CRIMINAL RESEARCHER at urgent care attempted to remove it Worsened by: Attempt to be removed by outside facility Relieved by: Nothing Associated Symptoms Associated Symptoms: Pain to right Narrative Narrative: Patient was using Q-tip this morning. The tip broke. She presents because of foreign body. She has no other complaints. She was seen at outside facility. They were unsuccessful in removing this. She left because of pain. Prior similar symptoms: No Recent Illness/Hospitalization: No [facility] Medical History Left shoulder pain Dislocation of left shoulder joint Palpitations Subcutaneous nodule of right lower leg Screening for breast cancer Type 2 diabetes mellitus Preoperative evaluation to rule out surgical contraindication Tremor Essential tremor Localized swelling of chest wall Chest wall pain Change in skin mole Chronic diarrhea Diverticulosis GERD (gastroesophageal reflux disease) Diffuse idiopathic pulmonary neuroendocrine cell hyperplasia Vitamin deficiency Hypertriglyceridemia GI problem Chronic bronchitis Seasonal allergies Home Medications ?Medication ?Instructions ?Recorded ?Last Taken ?Type blood pressure monitor #1 ea 02/18/20 Unknown Rx octreotide,microspheres 30 mg 30 mg IM Q4W 02/18/20 Unknown History intramuscular susp, extended release (Sandostatin LAR Depot) nebulizers #1 ea 08/01/20 Unknown Rx Disability Placard #1 ea 05/25/21 Unknown Rx dicyclomine 20 mg tablet 20 mg PO TID #90 tabs 07/02/22 Unknown Rx blood-glucose meter (Accu-Chek #1 ea 02/20/23 Unknown Rx Guide Glucose Meter) lancets (Accu-Chek Softclix #100 ea 02/20/23 Unknown Rx Lancets) blood sugar diagnostic (Blood #100 ea 04/15/23 Unknown Rx Glucose Test strips) metformin 500 mg tablet,extended 500 mg PO QPM #90 tabs 05/28/23 Unknown Rx release 24hr (osmotic) escitalopram oxalate 20 mg tablet 20 mg PO DAILY #90 tabs 08/27/23 Unknown Rx pantoprazole 40 mg tablet,delayed 40 mg PO DAILY #90 tabs 10/06/23 Unknown Rx release (Protonix) amlodipine 5 mg tablet See Rx Instructions .Route 02/23/24 Unknown Rx .COMPLEX #90 tabs albuterol sulfate 2.5 mg/3 mL 2.5 mg (3 mL) inhalation Q4H PRN 04/06/24 Unknown Rx (0.083 %) solution for nebulization shortness of breath or wheezing #90 mL albuterol sulfate 90 mcg/actuation 2 puff inhalation Q6H PRN Sob &/Or 04/06/24 Unknown Rx aerosol inhaler (Ventolin HFA) Wheezing #3 ea budesonide 160 mcg-glycopyr 9 2 inh inhalation BID #3 ea 04/06/24 Unknown Rx mcg-formot 4.8 mcg/actuation HFA inhaler (Breztri Aerosphere) acetaminophen 325 mg tablet 650 mg (2 x 325 mg) PO Q6H PRN PRN 04/19/24 Unknown Rx Pain 1-10 Or Fever >100.7 #0 tabs amoxicillin 875 mg-potassium 1 tab PO Q12H #28 tabs 04/19/24 Unknown Rx clavulanate 125 mg tablet sennosides 8.6 mg-docusate sodium 2 tab PO BID PRN PRN Constipation 04/19/24 Unknown Rx 50 mg tablet (Stimulant Laxative #30 tabs Plus) Allergy/AdvReac Type Severity Reaction Status Date / Time hydromorphone (From Dilaudid) Allergy Severe Hallucinati Verified 04/24/24 10:04 ons Family History Brother Diabetes Heart disease Lung cancer Daughter Alcohol abuse Anxiety Father Dementia Mother Enlarged heart Surgical History History of appendectomy History of cholecystectomy History of total hip replacement Hx of oophorectomy Hx of hysterectomy Social History Smoking Status: Never smoker second hand exposure: No alcohol intake: current alcohol intake frequency: a few times a month Alcohol type: wine substance use type: does not use what type of physical activity do you participate in: none nico/jehovah's witness: Gnosticist seatbelt use: always do you feel safe at home: Yes ROS ROS ED ENT ENT ED: Reports ear pain right; Denies rhinorrhea or sore throat Musculoskeletal Musculoskeletal: Denies neck pain Integumentary Denies rash Neurologic Neurologic: Denies headache(s) EXAM Physical Exam Const Vital Signs: 04/24/24 10:46 Temperature 98 F Temperature Source Temporal Pulse Rate 86 Respiratory Rate 14 Blood Pressure 155/94 H Blood Pressure Mean 114 Pulse Ox 99 Oxygen Delivery Method Room Air Positive well nourished and well developed General Appearance ED: well developed; Negative for NAD HEENT Reports moist mucous membranes HEENT Narrative: Head is atraumatic normocephalic. Ear is normal. There is a foreign body noted in the right external auditory canal. Appears to be up against the tympanic membrane. The portion of the tympanic membrane that was visualized is normal. Eyes PERRL and EOMs intact bilaterally General Eye ED: Negative for pale conjunctiva or scleral icterus Neck no lymphadenopathy, supple and no JVD Resp normal respiratory effort Cardio regular rate and regular rhythm Neuro oriented x3 and CN's II-XII intact bilaterally Sensorium / Orientation: alert Psych mental status grossly normal MDM MDM MDM Narrative Medical decision making narrative: Foreign body right ear. This was removed using alligator forceps. After foreign body was removed the ear was reexamined. The TM is not perforated. There is slight redness. Discharge Plan Triage Chief Complaint: Ear Problem ED Provider: Ajit Rodriguez Dx/Rx/DC Orders Clinical Impression: Foreign body of right ear, Hypertension Instructions: ED Foreign Body, Ear Canal (Removed) Prescriptions: No Action Sandostatin LAR Depot 30 mg suspension,extended rel recon 30 mg IM Q4W (DME) blood pressure monitor Kit See Rx Instructions .ROUTE .MEDSUPPLY Qty: 1 0RF Rx Instructions: Check blood pressure daily for hypertension I10 (DME) nebulizers Misc See Rx Instructions .ROUTE .MEDSUPPLY Qty: 1 0RF Rx Instructions: As directed (DME) Disability Placard See Rx Instructions .ROUTE .MEDSUPPLY Qty: 1 0RF Rx Instructions: Expires in 5 years dicyclomine 20 mg tablet 20 mg PO TID Qty: 90 1RF metformin 500 mg tablet extended release 24hr 500 mg PO QPM Qty: 90 2RF escitalopram oxalate 20 mg tablet 20 mg PO DAILY Qty: 90 3RF albuterol sulfate 2.5 mg /3 mL (0.083 %) solution for nebulization 2.5 mg INHALATION Q4H PRN (Reason: shortness of breath or wheezing) Qty: 90 3RF albuterol sulfate [Ventolin HFA] 90 mcg/actuation HFA aerosol inhaler 2 puff INHALATION Q6H PRN (Reason: Sob &/Or Wheezing) Qty: 3 3RF Breztri Aerosphere 160-9-4.8 mcg/actuation HFA aerosol inhaler 2 inh inhalation BID Qty: 3 3RF acetaminophen 325 mg Tablet 650 mg PO Q6H PRN PRN (Reason: Pain 1-10 Or Fever >100.7) Qty: 0 0RF sennosides-docusate sodium [Stimulant Laxative Plus] 8.6-50 mg Tablet 2 tab PO BID PRN PRN (Reason: Constipation) Qty: 30 0RF amoxicillin-pot clavulanate 875-125 mg tablet 1 tab PO Q12H Qty: 28 0RF (DME) blood-glucose meter [Accu-Chek Guide Glucose Meter] Misc See Rx Instructions .Route Qty: 1 0RF Rx Instructions: As directed (DME) lancets [Accu-Chek Softclix Lancets] Misc See Rx Instructions .Route Qty: 100 3RF Rx Instructions: As directed (DME) Blood Glucose Test Strip See Rx Instructions .Route Qty: 100 3RF Rx Instructions: Check BID pantoprazole [Protonix] 40 mg tablet,delayed release (DR/EC) 40 mg PO DAILY Qty: 90 3RF amlodipine 5 mg tablet See Rx Instructions .ROUTE .COMPLEX Qty: 90 0RF Dose Instruction: TAKE 1 TABLET BY MOUTH EVERY DAY Rx Instructions: TAKE 1 TABLET BY MOUTH EVERY DAY Primary Care Provider: Fco Bell Referrals: Fco Bell MD [Primary Care Provider] - As Needed Print Language: Bulgarian
== END 2024-04-24 11:20 | disposition home or self-care (01) ==
LOC: ED 11:10
PROVIDERS: Emergency Provider Emergency Medicine; PCP Internal Medicine; Visit Provider Emergency Medicine
DX: T16.1XXA Foreign body in right ear, initial encounter (principal); E11.9 Type 2 diabetes mellitus without complications; I10 Essential (primary) hypertension; K21.9 Gastro-esophageal reflux disease without esophagitis; W44.8XXA Other foreign body entering into or through a natural orifice, initial encounter
CPT/HCPCS: 99282